=== PATIENT | female | born 1960 | race Caucasian/White ===

== ENCOUNTER 2021-01-01 07:23 | Day surgery (SDC) | payer BC ==
[2020-12-28 10:37] VITALS: BMI 35.9
--- NOTE | 2020-12-28 11:56 | RAD REPORT ---
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 FINDINGS: The lungs are clear. Interstitial pattern is not significantly different from comparison imaging. Heart size is normal and central vasculature is within normal limits. No pleural effusion o r pneumothorax seen. No acute bony finding noted. No aortic abnormality. No significant change fr om comparison study. IMPRESSION: No acute cardiopulmonary process.
[2020-12-28 12:05] LABS: Absolute Lymphocytes (CBC) 2.5 K/uL (0.7-4.9); Hematocrit 44.4 % (36.0-45.0); Lymphocytes % 38.3 % (15.3-44.8); MPV 7.9 fL (7.6-11.3); RBC Red Blood Cell Count 5.06 M/uL (3.86-4.86)
[2020-12-28 12:07] LABS: Protime INR 0.94
[2020-12-28 12:09] LABS: Potassium 4.5 mmol/L (3.5-5.1)
[2021-01-01] MEDS ORDERED: NA CHLORIDE 0.9% 500 ML ONE (07:53)
[2021-01-01] MEDS ORDERED: LIDOCAINE 1% 20 ML MDV ONE (08:46)
[2021-01-01] MEDS ORDERED: HEPA 1000U/500MLS 1,000 UNIT/500 ML BAG IV ONE (08:46)
[2021-01-01] MEDS ORDERED: MIDAZOLAM HCL 2 MG/2 ML INJ ONE ×3 (08:46→09:37)
[2021-01-01] MEDS ORDERED: FENTANYL CITR 100 MCG/2 ML ONE (08:46)
[2021-01-01] MEDS ORDERED: NA CHLORIDE 0.9% 0 ML ONE (08:47)
[2021-01-01] MEDS ORDERED: ATROPINE SULF 1 MG/10 ML SYR IV ONE (08:47)
--- NOTE | 2021-01-01 10:42 | OP ---
Date of Procedure: 01/01/2021 Surgeon: Jose A John MD Powder Nipper: Johanna Navarro Indication: The patient is a 60-year-old, patient of Dr. Tsai with new onset CHF, abnormal stres s test, brought to the laboratory sample carrier today on 01/01/2021, underwent a left heart catheterization, selectiv e coronary arteriogram, left ventriculogram. Procedure: The patient was prepped and draped in the routine sterile fashion. Given Versed and fent anyl for sedation. A 6-Divehi sheath introduced in the right common femoral artery successfully usin g the Seldinger technique and 10 cc of xylocaine. Angiography there showed some mild SFA disease. S tarClose was used to close the case. A JR4 catheter and JL4 catheters were used to cannulate the rig ht main and the left main respectively. Her RCA was very large, dominant, free of disease. Her left main was normal. LAD was normal. Circumflex was small, nondominant. Pigtail catheter was then int roduced in the left ventricle. Angiography there showed mild global hypokinesis with ejection fracti on of 40% to 45%. Left ventricular end-diastolic pressure was 15. There were no complications. Blood Loss: 5 mL. Postoperative Diagnoses: Normal coronaries. Congestive heart failure, acute systolic, mild. We lyle crouch plan for medical therapy. She is already taking a beta-zurdo and a statin. I will consider the use of Entresto and maybe a low-dose Lasix. Plan: The patient will be at bedrest for 2 hours after her procedure. She will go home and I will s ee her in the office in 2 weeks. Anesthesia: Total conscious sedation was 45 minutes. NB/MODL Voice ID: [id number] Report ID: [id number]
[2021-01-01 11:11] VITALS: TEMP 96.6
[2021-01-01 11:13] VITALS: O2SAT 96
[2021-01-01 11:15] VITALS: BP 134/73
== END 2021-01-01 11:45 | disposition home or self-care (01) ==
LOC: CCL 07:23
DX: R94.39 Abnormal result of other cardiovascular function study (principal); I11.0 Hypertensive heart disease with heart failure; I50.21 Acute systolic (congestive) heart failure; E78.2 Mixed hyperlipidemia; F17.210 Nicotine dependence, cigarettes, uncomplicated; Z20.822 Contact with and (suspected) exposure to COVID-19; Z82.49 Family history of ischemic heart disease and other diseases of the circulatory system
CPT/HCPCS: 85025; 80048; 36415; 85610; 85730; 71046; 93458; U0003; C1893; J2250 ×3; J3010; J7040; J1644; J0583

== ENCOUNTER 2021-04-02 13:36 | Inpatient (IN) | payer BC ==
--- NOTE | 2021-04-02 14:33 | RAD REPORT ---
EXAM DESCRIPTION: RAD - Chest Single View - 04/02/2021 2:14 pm CLINICAL HISTORY: COUGH COMPARISON: Chest Pa And Lat (2 Views) dated 12/28/2020; CHEST SINGLE VIEW dated 07/14/2010; CHEST PA A ND LAT 2 VIEW dated 07/10/2010; CHEST SINGLE VIEW dated 03/01/2008 FINDINGS: Lines: None. Lungs: Decreased lung volumes with hazy bilateral opacities. Pleural: No significant pleural effusions or pneumothorax. Cardiac: Cardiomegaly. Bones: No acute fractures. Other: IMPRESSION: Low lung volumes with hazy bilateral opacities that may reflect edema and/or pneumonia.
[2021-04-02 16:15] LABS: Protime INR 1.13
[2021-04-02] MEDS ORDERED: NA CHLORIDE 0.9% 500 ML ONE (16:27)
[2021-04-02] MEDS ORDERED: ONDANSETRON 4 MG/2 ML VIAL ONE (16:27)
[2021-04-02] MEDS ORDERED: FAMOTIDINE 20 MG/2 ML VIAL IV ONE (16:27)
[2021-04-02 16:28] LABS: Absolute Lymphocytes (CBC) 0.8 K/uL (0.7-4.9); Basophils % 0.1 % (0-1.3); Hematocrit 44.3 % (36.0-45.0); Lymphocytes % 16.5 % (15.3-44.8); MPV 7.5 fL (7.6-11.3); RBC Red Blood Cell Count 5.13 M/uL (3.86-4.86)
[2021-04-02 16:31] LABS: ALT/SGPT 46 U/L (12-78); AST/SGOT 47 U/L (15-37); Albumin 3.3 g/dL (3.4-5.0); Alkaline Phosphatase 54 U/L (45-117); BUN Blood Urea Nitrogen 10 mg/dL (7-18); Bicarbonate 26 mmol/L (21-32); Bilirubin Direct 0.2 mg/dL (0-0.2); Bilirubin Total 0.6 mg/dL (0.2-1.0); Glucose Level 196 mg/dL (74-106); Lipase 64 U/L (73-393); Magnesium 2.2 mg/dL (1.8-2.4); NT PRO-BNP 563 pg/mL (<125); Protein, Total 7.3 g/dL (6.4-8.2); Sodium Level 137 mmol/L (136-145); Troponin (Emerg Dept Use Only) < 0.02 ng/mL (0.0-0.045)
--- NOTE | 2021-04-02 17:08 | RAD REPORT ---
EXAM DESCRIPTION: CT - Chest For Pe Angio - 04/02/2021 4:59 pm CLINICAL HISTORY: SOB COMPARISON: CTANGIO CHEST FOR PE dated 03/01/2008 FINDINGS: Chest Wall: No suspicious thyroid nodules or pathologic lymphadenopathy. Lungs: Mild patchy bilateral airspace disease. Pleura: No significant effusions or pneumothorax. Mediastinum/gilmar: No pathologic lymphadenopathy. Pulmonary arteries/Aorta: No filling defect identified. No aortic aneurysm. Heart: No significant pericardial effusion. Normal heart size. Upper abdomen: Hepatic steatosis. Cholecystectomy. Bones: No acute abnormality. Multilevel degenerative changes are present in the spine. All CT scans are performed using dose optimization technique as appropriate and may include automated exposure control or mA/KV adjustment according to patient size. IMPRESSION: Negative for pulmonary embolism. Mild bilateral airspace disease in a pattern suggestive of Covid-19 pneumonia.
--- NOTE | 2021-04-02 17:10 | RAD REPORT ---
EXAM DESCRIPTION: CTAbdomen Pelvis W Contrast - 04/02/2021 4:59 pm CLINICAL HISTORY: . diarrhea;Abd pain COMPARISON: No comparisons TECHNIQUE: Biphasic CT imaging of the abdomen and pelvis was performed with 100 ml non-ionic IV cont rast. All CT scans are performed using dose optimization technique as appropriate and may include automated exposure control or mA/KV adjustment according to patient size. FINDINGS: Lower chest: Reference same-day CT of the chest. Liver: Hepatic steatosis. Biliary: Cholecystectomy Stomach: No significant focal abnormality. Duodenum: No significant focal abnormality. Pancreas: No significant abnormality. Spleen: No significant abnormality. Adrenal: No suspicious lesions. Kidney/ureter: No hydronephrosis. No renal calculi. Retroperitoneum: No retroperitoneal adenopathy. Vascular: No aneurysm. Bowel: No significant focal abnormality. Normal appendix. Diverticulosis without diverticulitis. Peritoneum: No ascites or free air. Bladder: Bladder wall thickening with trace gas. Reproductive: No adnexal masses. Pessary present. Bones: No acute fracture. Other: n/a IMPRESSION: No definite acute intra-abdominal abnormality. Trace bladder gas which may be secondary to infection or recent instrumentation. Reference same-day chest CT for findings within the lungs.
[2021-04-02 18:06] LABS: Urine Bacteria >50 /HPF (<20); Urine RBC <5 /HPF (NONE SEEN)
[2021-04-02] MEDS ORDERED: CASIRIVIMAB/IMDEVIMAB 10 ML VIAL ONE (18:28)
[2021-04-02] MEDS ORDERED: dexAMETHasone 10 MG/ML VIAL ONE (18:30)
[2021-04-02] MEDS ORDERED: CEFTRIAXONE/SWI 1gm 1 GM/10 ML SYR ONE (18:31)
[2021-04-02] MEDS ORDERED: NA CHLORIDE 0.9% 250 ML ONE (18:45)
--- NOTE | 2021-04-02 20:20 | ER ---
Nurse's Notes [facility] Name: Caroline Angel Age: 60 yrs Sex: Female : 1960 Arrival Date: 04/02/2021 Time: 13:38 Bed Treatment Private MD: Diagnosis: Pneumonia due to SARS-associated coronavirus;Hypoxia Presentation: 04/02 13:59 Chief complaint: Patient states: Covid symptoms that began a week ago. Pt states that jl7 she knows she has covid because her family has tested positive. C/o SOB, cough, body aches, headache and N/V. Coronavirus screen: Client presents with at least one sign or symptom that may indicate coronavirus-19. Standard/surgical mask placed on the client. Provider contacted for isolation considerations. Ebola Screen: Patient denies exposure to infectious person. Patient denies travel to an Ebola-affected area in the 21 days before illness onset. Initial Sepsis Screen: Does the patient meet any 2 criteria? No. Patient's initial sepsis screen is negative. Does the patient have a suspected source of infection? No. Patient's initial sepsis screen is negative. Risk Assessment: Do you want to hurt yourself or someone else? Patient reports no desire to harm self or others. Onset of symptoms was March 26, 2021. 13:59 Method Of Arrival: Wheelchair [facility] 13:59 Acuity: SHELDON 2 jl7 Historical: - Allergies: 14:01 No Known Allergies; jl7 - Immunization history:: Client reports having NOT received the Covid vaccine. - Social history:: Smoking status: Patient denies any tobacco usage or history of. Screenin:24 Abuse screen: Denies threats or abuse. Nutritional screening: No deficits noted. oh Tuberculosis screening: No symptoms or risk factors identified. Fall Risk None identified. Assessment: 15:22 General: Appears distressed, uncomfortable, Behavior is calm, cooperative, Reports oh fever for feeling ill for fatigue for SOB, cough. Pain: Complains of pain in to chest upon coughing. Neuro: No deficits noted. Cardiovascular: No deficits noted. Respiratory: Reports shortness of breath cough that is pain with cough Pain is 7 out of 10 on a pain scale. GI: No deficits noted. : No deficits noted. EENT: No deficits noted. Derm: No deficits noted. Musculoskeletal: No deficits noted. 19:30 Reassessment: Patient states symptoms have not improved. Pt request to go to bathroom. dc2 Pt RR 24-26 while on 6 L of Oxygen. Informed pt I could get BSC. After using BSC pt co SOB and tachypnic. States has been sob all week since symptoms began for the past week. Pt reports normally no SOB prior to this event of being sick. at side, Regeneron infusing to R AC without difficulty. VSS except for RR and co sob that is not improving. Call light within reach, will continue to monitor. . 20:17 Reassessment: Regeneron completed and pt tolerate well. IV disconnected and line dc2 flushed. While speaking to patient , pt oxygen saturations drop low 90's on 3L NC and RR 28. will make provider aware of findings. When oxygen turned off, pt desat into mid 80's. Vital Signs: 13:59 BP 132 / 79; Pulse 106; Resp 25; Temp 99.8(O); Pulse Ox 92% on R/A; Weight 87.09 kg; jl7 Height 5 ft. 4 in. (162.56 cm); Pain 4/10; 18:50 BP 121 / 64; Pulse 90; Resp 20; Temp 100.4; Pulse Ox 95% on 3 lpm NC; oh 19:30 BP 133 / 76; Pulse 85; Resp 26; Temp 98.3; Pulse Ox 97% on 6 lpm NC; dc2 20:52 BP 130 / 90; Pulse 87; Resp 26; Pulse Ox 95% on 2 lpm NC; dc2 22:17 BP 126 / 66; Pulse 88; Resp 22; Temp 98.3; Pulse Ox 93% on 3 lpm NC; Pain 6/10; dc2 13:59 Body Mass Index 32.96 (87.09 kg, 162.56 cm) jl7 Jerilyn Coma Score: 19:30 Eye Response: spontaneous(4). Verbal Response: oriented(5). Motor Response: obeys dc2 commands(6). Total: 15. ED Course: 13:38 Patient arrived in ED. rg4 14:01 Triage completed. jl7 14:01 Arm band placed on right wrist. jl7 14:13 XRAY Chest (1 view) In Process Unspecified. EDMS 15:12 Jaya Leyva PA is PHCP. cp 15:12 Lion Segura MD is Attending Physician. cp 15:22 Kvng Gottlieb, DAMIEN is Primary Nurse. oh 15:25 Placed in gown. Bed in low position. Call light in reach. Side rails up X 1. Adult w/ oh patient. 15:59 Basic Metabolic Panel Sent. oh 15:59 CBC with Diff Sent. oh 16:59 CT Chest For PE Angio In Process Unspecified. EDMS 16:59 CT Abd/Pelvis - IV Contrast Only In Process Unspecified. EDMS 18:35 Primary Nurse role handed off by Kvng Gottlieb, RN bd 18:40 Kvng Gottlieb, DAMIEN is Primary Nurse. oh 18:40 Inserted saline lock: 18 gauge in right antecubital area, using aseptic technique. oh Blood collected. 18:40 No provider procedures requiring assistance completed. oh 19:20 Droplet isolation initiated. dc2 19:20 nuclear monitoring technician on. Pulse ox on. NIBP on. dc2 20:19 Jesus Navarro PA is Hospitalizing Provider. pm1 20:20 PHCP role handed off by Jaya Leyva PA pm1 20:20 Sage Trimble NP is PHCP. pm1 20:30 Patient Discuss admission process with patient and . Verbalize understanding. dc2 Will wait for hospitalist then will find out if she will be a hold in the ED. IF a hold, instructed patient would attempt to get hospital bed for comfort. Voices understanding. 20:53 Awaiting bed assignment. Safety Checks:. dc2 20:54 Door closed. Lights dimmed. Assisted to bedside commode. dc2 22:20 IV Flushed Converted IV to saline lock on right antecubital area dc2 Administered Medications: 16:09 Drug: Pepcid (famotidine) 20 mg Route: IVP; Site: right antecubital; oh 16:09 Drug: NS 0.9% 500 ml Route: IV; Rate: 500 ml/hr; Site: right antecubital; oh 16:10 Drug: Zofran (Ondansetron) 4 mg Route: IVP; Site: right antecubital; oh 18:10 Drug: Rocephin (cefTRIAXone) 1 grams Route: IV; Rate: calculated rate; Site: right oh antecubital; 18:18 Drug: Decadron - Dexamethasone 6 mg Route: IVP; Site: right antecubital; oh 18:25 Drug: REGEN-COV Dose Pack 120 mg/mL-120 mg/mL (EUA) 260 ml Route: IV; Rate: calculated oh rate; Site: right antecubital; Outcome: 20:20 Decision to Hospitalize by Provider. pm1 22:20 Admitted to Med/surg accompanied by nurse, room 402, with oxygen, with chart, Report dc2 called to DAMIEN Pearl 22:20 Condition: stable 23:11 Patient left the ED. dc2 Signatures: Dispatcher [employer] EDMS Barbara Aguilera Corey, PA PA cp Marinas, Patrick, JOYCE COMPUTER SYSTEM VALIDATION SPECIALIST pm1 Eda Clifford4 Shruti Deleon RN RN jl7 Ebony Cantu RN RN dc2 Kvng Gottlieb RN RN oh
--- NOTE | 2021-04-02 20:20 | EDPHYS ---
Physician Documentation [facility] Name: Caroline Angel Age: 60 yrs Sex: Female : 1960 Arrival Date: 04/02/2021 Time: 13:38 Bed Treatment Private MD: ED Physician Lion Segura HPI: 04/02 15:20 This 60 yrs old Female presents to ER via Wheelchair with complaints of cp Cough, Fever, Diarrhea. 15:20 The patient or guardian reports cough, that is intermittent, with no sputum, shortness cp of breath. 15:20 Onset: The symptoms/episode began/occurred 7 day(s) ago. Associated signs and symptoms: cp Pertinent positives: diarrhea, nausea, vomiting, abdominal pain. Patient reports close contact with multiple family members who tested positive for COVID-19. Patient reports she is not vaccinated against COVID-19. Historical: - Allergies: 14:01 No Known Allergies; jl7 - Immunization history:: Client reports having NOT received the Covid vaccine. - Social history:: Smoking status: Patient denies any tobacco usage or history of. ROS: 15:25 Constitutional: Positive for body aches, poor PO intake, Negative for fever. cp 15:25 Eyes: Negative for injury, pain, redness, and discharge. cp 15:25 Cardiovascular: Negative for chest pain, edema. 15:25 Respiratory: Positive for cough, with no reported sputum. 15:25 Abdomen/GI: Positive for abdominal pain, nausea, vomiting, and diarrhea, anorexia, Negative for hematemesis, black/tarry stool, rectal bleeding. 15:25 Neuro: Positive for headache, Negative for altered mental status, loss of consciousness, syncope. Exam: 15:30 Head/Face: Normocephalic, atraumatic. cp 15:30 Constitutional: The patient appears in no acute distress, alert, awake, non-diaphoretic, non-toxic, well developed, well nourished. 15:30 Eyes: Periorbital structures: appear normal, Conjunctiva: normal, no exudate, no injection, Sclera: no appreciated abnormality, Lids and lashes: appear normal, bilaterally. 15:30 ENT: External ear(s): are unremarkable, Nose: is normal, Mouth: Lips: moist, Oral mucosa: moist, Posterior pharynx: Airway: no evidence of obstruction, patent. 15:30 Chest/axilla: Inspection: normal, Palpation: is normal, no crepitus, no tenderness. 15:30 Cardiovascular: Rate: tachycardic, Rhythm: regular, Edema: is not appreciated, JVD: is not appreciated. 15:30 Respiratory: the patient does not display signs of respiratory distress, Respirations: normal, no use of accessory muscles, no retractions, labored breathing, is not present, Breath sounds: bronchial sounds, that are mild, are heard in the left posterior lower lobe and right posterior lower lobe, decreased breath sounds, are not appreciated, stridor, is not appreciated. 15:30 Abdomen/GI: Inspection: abdomen appears normal, Bowel sounds: active, all quadrants, Palpation: soft, in all quadrants, mild abdominal tenderness, in all quadrants, rebound tenderness, is not appreciated, involuntary guarding, is not appreciated. 15:30 Back: CVA tenderness, is absent. 15:30 Skin: cellulitis, is not appreciated, no rash present. 15:30 Neuro: Orientation: to person, place \T\ time. Mentation: is normal. 16:27 ECG was reviewed by the Attending Physician. cp Vital Signs: 13:59 BP 132 / 79; Pulse 106; Resp 25; Temp 99.8(O); Pulse Ox 92% on R/A; Weight 87.09 kg; jl7 Height 5 ft. 4 in. (162.56 cm); Pain 4/10; 18:50 BP 121 / 64; Pulse 90; Resp 20; Temp 100.4; Pulse Ox 95% on 3 lpm NC; oh 19:30 BP 133 / 76; Pulse 85; Resp 26; Temp 98.3; Pulse Ox 97% on 6 lpm NC; dc2 20:52 BP 130 / 90; Pulse 87; Resp 26; Pulse Ox 95% on 2 lpm NC; dc2 22:17 BP 126 / 66; Pulse 88; Resp 22; Temp 98.3; Pulse Ox 93% on 3 lpm NC; Pain 6/10; dc2 13:59 Body Mass Index 32.96 (87.09 kg, 162.56 cm) jl7 Jerilyn Coma Score: 19:30 Eye Response: spontaneous(4). Verbal Response: oriented(5). Motor Response: obeys dc2 commands(6). Total: 15. MDM: 15:17 Patient medically screened. cp 16:00 Differential Diagnosis: Viral Syndrome Pneumonia Other respiratory failure, cp dehydration, electrolyte abnormality. 17:20 Data reviewed: vital signs, nurses notes, lab test result(s), EKG, radiologic studies, cp CT scan, plain films. 17:20 Test interpretation: by ED physician or midlevel provider: ECG, plain radiologic cp studies. 20:17 ED course: Patient with completion of Regeneron. However patient with saturations 87% pm1 on room air and tachypnea. Will admit the patient due to supplemental oxygen requirement. 20:17 Counseling: I had a detailed discussion with the patient and/or guardian regarding: the pm1 historical points, exam findings, and any diagnostic results supporting the discharge/admit diagnosis, lab results, radiology results, the need for further work-up and treatment in the hospital. 20:42 Physician consultation: Jesus SHI was contacted at 20:40, regarding admission, pm1 and will see patient in ED. 04/02 15:36 Order name: Basic Metabolic Panel cp 04/02 15:36 Order name: CBC with Diff cp 04/02 15:36 Order name: LFT's; Complete Time: 16:41 cp 04/02 16:41 Interpretation: Normal except: AST 47; ALB 3.3; GLOB 4.0; A/G 0.8. cp 04/02 15:36 Order name: Magnesium; Complete Time: 16:41 cp 04/02 15:36 Order name: NT PRO-BNP; Complete Time: 16:41 cp 04/02 15:36 Order name: PT-INR; Complete Time: 16:24 cp 04/02 16:58 Interpretation: Abnormal: PT 13.0. cp 04/02 15:36 Order name: Troponin (emerg Dept Use Only); Complete Time: 16:41 cp 04/02 15:36 Order name: Lipase; Complete Time: 16:41 cp 04/02 16:58 Interpretation: Abnormal: LIP 64. cp 04/02 15:36 Order name: CRP; Complete Time: 16:41 cp 04/02 16:41 Interpretation: Abnormal: C-REACTIVE PROT 66.50. cp 04/02 15:36 Order name: Ferritin; Complete Time: 16:41 cp 04/02 16:42 Interpretation: Abnormal: EITAN 398.0. cp 04/02 15:36 Order name: Urine Microscopic Only; Complete Time: 20:15 04/02 15:36 Order name: Basic Metabolic Panel; Complete Time: 16:41 [facility] 04/02 16:42 Interpretation: Normal except: GLUC 196; GFR 68; CA 8.4. 04/02 15:36 Order name: CBC with Automated Diff; Complete Time: 16:41 [facility] 04/02 16:42 Interpretation: Normal except: RBC 5.13; MPV 7.5; JJ% 77.2. 04/02 14:02 Order name: XRAY Chest (1 view); Complete Time: 15:17 [facility] 04/02 15:36 Order name: EKG; Complete Time: 15:36 04/02 15:36 Order name: Cardiac monitoring; Complete Time: 15:59 04/02 15:36 Order name: EKG - Nurse/Tech; Complete Time: 16:24 04/02 15:36 Order name: IV Saline Lock; Complete Time: 15:59 04/02 15:36 Order name: CT Chest For PE Angio; Complete Time: 17:13 04/02 15:36 Order name: CT Abd/Pelvis - IV Contrast Only; Complete Time: 17:13 04/02 15:51 Order name: SARS-COV-2 RT PCR; Complete Time: 16:24 [facility] 04/02 16:24 Interpretation: Abnormal: SARSCOV2 RT PCR POSITIVE. 04/02 18:07 Order name: Urine Culture [facility] 04/02 21:04 Order name: CONS Physician Consult; Complete Time: 22:05 [facility] 04/02 15:36 Order name: Labs collected and sent; Complete Time: 15:59 04/02 15:36 Order name: O2 Per Protocol; Complete Time: 15:59 04/02 15:36 Order name: O2 Sat Monitoring; Complete Time: 15:59 04/02 15:36 Order name: Urine Dipstick-Ancillary (obtain specimen) cp EC:27 Rate is 93 beats/min. Rhythm is regular. ND interval is normal. QRS interval is normal. cp QT interval is normal. T waves are Inverted in lead III. Interpreted by me. Reviewed by me. Administered Medications: 16:09 Drug: Pepcid (famotidine) 20 mg Route: IVP; Site: right antecubital; oh 16:09 Drug: NS 0.9% 500 ml Route: IV; Rate: 500 ml/hr; Site: right antecubital; oh 16:10 Drug: Zofran (Ondansetron) 4 mg Route: IVP; Site: right antecubital; oh 18:10 Drug: Rocephin (cefTRIAXone) 1 grams Route: IV; Rate: calculated rate; Site: right oh antecubital; 18:18 Drug: Decadron - Dexamethasone 6 mg Route: IVP; Site: right antecubital; oh 18:25 Drug: REGEN-COV Dose Pack 120 mg/mL-120 mg/mL (EUA) 260 ml Route: IV; Rate: calculated oh rate; Site: right antecubital; Disposition: 04/03 07:18 Co-signature as Attending Physician, Lion Segura MD I agree with the assessment and rn plan of care. Attestation: The patient's history, exam findings, diagnostics, and a summary of any interventions or procedures was reviewed in detail with Sage Trimble NP. Disposition Summary: 04/02/21 20:20 Hospitalization Ordered Hospitalization Status: Inpatient Admission pm1 Provider: Jesus Navarro pm1 Location: Telemetry/[facility] (Inpatient) pm1 Condition: Stable pm1 Problem: new pm1 Symptoms: have improved pm1 Bed/Room Type: Standard pm1 Room Assignment: 402(04/02/21 21:37) Diagnosis - Pneumonia due to SARS-associated coronavirus pm1 - Hypoxia pm1 Discharge Instructions: - Discharge Summary Sheet cp - Food Choices to Help Relieve Diarrhea, Adult cp - Diarrhea, Adult cp - COVID-19 cp - COVID-19 Frequently Asked Questions cp - 10 Things You Can Do to Manage Your COVID-19 Symptoms at Home - [facility] cp Forms: - Medication Reconciliation Form pm1 - SBAR form pm1 Prescriptions: - dexamethasone 2 mg Oral tablet - take 1 tablet by ORAL route 3 times per day for 5 days; 15 tablet; Refills: 0, cp Product Selection Permitted - Zofran 4 mg Oral Tablet - take 1 tablet by ORAL route every 12 hours As needed; 20 tablet; Refills: 0, cp Product Selection Permitted - Zithromax Z-Angel 250 mg Oral Tablet - take 1 tablet by ORAL route as directed for 5 days Day 1 - take two (2) tablets cp one time. Day 2, 3, 4 , 5 take one (1) tablet once daily.; 6 tablet; Refills: 0, Product Selection Permitted - Augmentin 875-125 mg Oral Tablet - take 1 tablet by ORAL route every 12 hours for 7 days; 14 tablet; Refills: 0, cp Product Selection Permitted Signatures: Dispatcher [employer] EDMD Lion Segura MD MD rn Page, Corey, PA PA cp Garcia, Cindy, RN RN Sage Vera, JOYCE HIDE SPREADER pm1 Shruti Deleon RN RN jl7 Kvng Gottlieb RN RN oh Corrections: (The following items were deleted from the chart) 04/02 14:21 14:03 CORONAVIRUS+.ALEJO ordered. EDMD EDMS :04/01 15:30 Constitutional: The patient appears in no acute distress, alert, awake, cp non-diaphoretic, non-toxic, well developed, well nourished, cp 04/02 18:04/01 15:30 Head/Face: Normocephalic, atraumatic. cp cp 04/02 18:04/01 15:30 Eyes: Periorbital structures: appear normal, Conjunctiva: normal, no cp exudate, no injection, Sclera: no appreciated abnormality, Lids and lashes: appear normal, bilaterally, cp 04/02 18: 09 15:30 ENT: External ear(s): are unremarkable, Nose: is normal, Mouth: Lips: cp moist, Oral mucosa: moist, Posterior pharynx: Airway: no evidence of obstruction, patent, cp 04/02 18:04/01 15:30 Chest/axilla: Inspection: normal, Palpation: is normal, no crepitus, no cp tenderness, cp 04/02 18:04/01 15:30 Cardiovascular: Rate: tachycardic, Rhythm: regular, Edema: is not cp appreciated, JVD: is not appreciated, cp 04/02 18:04/01 15:30 Respiratory: the patient does not display signs of respiratory distress, cp Respirations: normal, no use of accessory muscles, no retractions, labored breathing, is not present, Breath sounds: bronchial sounds, that are mild, are heard in the left posterior lower lobe and right posterior lower lobe, decreased breath sounds, are not appreciated, stridor, is not appreciated, cp 04/02 18:04/01 15:30 Abdomen/GI: Inspection: abdomen appears normal, Bowel sounds: active, all cp quadrants, Palpation: soft, in all quadrants, mild abdominal tenderness, in all quadrants, rebound tenderness, is not appreciated, involuntary guarding, is not appreciated, cp 04/02 18:04/01 15:30 Back: CVA tenderness, is absent, cp 04/02 18:04/01 15:30 Neuro: Orientation: to person, place \T\ time. Mentation: is normal, cp 04/02 18:04/01 15:30 Skin: cellulitis, is not appreciated, no rash present. [facility] 04/02 21:37 20:20 pm1 cg
--- NOTE | 2021-04-02 21:58 | P.HP ---
Certification for Inpatient Patient admitted to: Inpatient With expected LOS: <2 Midnights Patient will require the following post-hospital care: None Practitioner: I am a practitioner with admitting privileges, knowledge of patient current condition, hospital course, and medical plan of care. Services: Services provided to patient in accordance with Admission requirements found in Title 42 Section 412.3 of the Code of Federal Regulations Patient History Date of Service: 04/02/21 Reason for admission: covid pneumonia History of Present Illness: Ms. Angel is a 60 yo F with CHF (EF 41%), HTN, HLD who presents with SOB and fever, COVID+ diagnosis. She says family members whom she lives with have tested positive for COVID. She is not vaccinated. On Friday she began to have fever, headache, malaise, cough, SOB, N/V/D, abdominal pain. Reports poor appetite, and fluid intake. CXR and CT scan consistent with covid pneumonia, no pulmonary embolism. Initially sats of 92% on RA so plan was to discharge from the ED after receiving Regeneron. However, patient became hypoxic to 88% and required O2 via nasal cannula, now requiring admission. Glu 196. Ferritin 398. CRP 66. Urine dipstick + for bacteria. Allergies No Known Allergies Allergy (Verified 12/28/20 10:37) - Past Medical/Surgical History Diabetic: No -: HTN -: HLD -: CHF -: lichen sclerosis -: rectocele -: hysterectomy -: cholecystectomy -: foot surgery x 5, achilles tendon repair Psychosocial/ Personal History: - Family History Mother -: Heart disease, Cancer Notes: from covid Father -: Lung disease - Social History Smoking Status: Never smoker Alcohol use: No CD- Drugs: No Caffeine use: Yes Place of Residence: Home Review of Systems General: Fever, Chills, Sweats, Weakness, Malaise Respiratory: Cough, Shortness of Breath, SOB with Excertion Gastrointestinal: Nausea, Vomiting, Abdominal Pain, Diarrhea Physical Examination - Physical Exam General: Alert, In no apparent distress, Oriented x3, Cooperative, Obese HEENT: Atraumatic, PERRLA, Mucous membr. moist/pink, EOMI, Sclerae nonicteric Neck: Supple, 2+ carotid pulse no bruit, No LAD, Without JVD or thyroid abnormality Respiratory: Normal air movement, Expiratory wheezes, Rhonchi/gurgles Cardiovascular: No edema, Normal pulses, Regular rate/rhythm, Normal S1 S2, No gallops, No rubs, No murmurs Gastrointestinal: Normal bowel sounds, Soft and benign, Non-distended, No ascites, No tenderness, No masses, No rebound, No guarding Musculoskeletal: No tenderness Integumentary: No rashes Neurological: Normal speech, Normal strength at 5/5 x4 extr, Normal tone, Normal affect Lymphatics: No axilla or inguinal lymphadenopathy - Studies Laboratory Data (last 24 hrs) 04/02/21 15:56: PT 13.0 H, INR 1.13 04/02/21 15:56: WBC 4.80, Hgb 14.8, Hct 44.3, Plt Count 251 04/02/21 15:56: Sodium 137, Potassium 4.0, BUN 10, Creatinine 0.85, Glucose 196 H, Magnesium 2.2, Total Bilirubin 0.6, AST 47 H, ALT 46, Alkaline Phosphatase 54, Lipase 64 L Assessment and Plan - Problems (Diagnosis) (1) Pneumonia due to COVID-19 virus Current Visit: Yes Status: Acute (2) HTN (hypertension) Current Visit: Yes Status: Chronic Qualifiers: Hypertension type: primary hypertension Qualified Code(s): I10 - Essential (primary) hypertension (3) HLD (hyperlipidemia) Current Visit: Yes Status: Chronic Qualifiers: Hyperlipidemia type: unspecified Qualified Code(s): E78.5 - Hyperlipidemia, unspecified (4) CHF (congestive heart failure) Current Visit: Yes Status: Acute Qualifiers: Heart failure type: unspecified Heart failure chronicity: chronic Qualified Code(s): I50.9 - Heart failure, unspecified (5) Bacteriuria Current Visit: Yes Status: Acute - Plan pulm consulted, RT consulted continue IV steroids, ivermectin, covid supplements sats for home O2, sats on room air daily daily crp, ferritin, procal A1c pending, sliding scale insulin and accuchecks urinalysis pending, continue IV antibiotics reconcile and continue home medications DVT ppx Discharge Plan: Home Plan to discharge in: 48 Hours - Advance Directives Does patient have a Living Will: No Does patient have a Durable POA for Healthcare: No - Code Status/Comfort Care Code Status Assessed: Yes (full code ) Critical Care: No Time Spent Managing Pts Care (In Minutes): 70
[2021-04-02] MEDS: BENZONATATE 100 MG CAP PO PRN (23:33)
[2021-04-02] MEDS: MELATONIN 5 MG TABLET PO PRN (23:33)
[2021-04-03 04:00] LABS: Absolute Lymphocytes (CBC) 1.1 K/uL (0.7-4.9); Basophils % 0.1 % (0-1.3); Hematocrit 40.8 % (36.0-45.0); Lymphocytes % 15.1 % (15.3-44.8); MPV 7.6 fL (7.6-11.3); RBC Red Blood Cell Count 4.74 M/uL (3.86-4.86)
[2021-04-03 04:20] LABS: ALT/SGPT 39 U/L (12-78); AST/SGOT 33 U/L (15-37); Albumin 2.9 g/dL (3.4-5.0); Alkaline Phosphatase 45 U/L (45-117); BUN Blood Urea Nitrogen 10 mg/dL (7-18); Bicarbonate 27 mmol/L (21-32); Bilirubin Total 0.5 mg/dL (0.2-1.0); Ferritin 366.6 ng/mL (8-388); Glucose Level 159 mg/dL (74-106); Magnesium 2.1 mg/dL (1.8-2.4); Phosphorus 3.2 mg/dL (2.5-4.9); Potassium 3.7 mmol/L (3.5-5.1); Protein, Total 6.5 g/dL (6.4-8.2); Sodium Level 140 mmol/L (136-145)
[2021-04-03] MEDS: INSULIN -REGULAR HUMAN 50 UNIT/0.5 ML ML SQ SCH ×4 (07:30→21:00)
[2021-04-03] MEDS: ASPIRIN EC 81 MG TAB PO SCH (08:50)
[2021-04-03] MEDS: VITAMIN D 1000 UNIT TAB PO SCH (08:50)
[2021-04-03] MEDS: FAMOTIDINE 20 MG TAB PO SCH ×2 (08:51→20:51)
[2021-04-03] MEDS: METHYLPREDNISOLONE 40 MG INJ IV SCH ×2 (08:51→20:51)
[2021-04-03] MEDS: ZINC SULFATE 220 MG CAP PO SCH (08:51)
[2021-04-03] MEDS: THIAMINE HCL 100 MG TABLET PO SCH (08:51)
[2021-04-03] MEDS: ASCORBIC ACID 500 MG TABLET PO SCH ×4 (08:51→20:51)
[2021-04-03] MEDS ORDERED: IVERMECTIN 3 MG TABLET PO SCH (09:00)
--- NOTE | 2021-04-03 10:25 | EKG ---
Test Date: 2021-04-02 Test Time: 16:20:48 Cso: JACKIE MEASUREMENT RESULTS: Intervals: Rate: 93 WY: 138 QRSD: 90 QT: 358 QTc: 445 [place]: P: 42 WY: 138 QRS: -16 T: 10 INTERPRETIVE STATEMENTS: Normal sinus rhythm Possible Anterior infarct, age undetermined Abnormal ECG Compared to ECG 01/25/2015 17:38:57 Myocardial infarct finding now present Sinus tachycardia no longer present Electronically Signed On 04-03-21 10:22:05 CDT by Jose A John
--- NOTE | 2021-04-03 16:52 | P.PN ---
Subjective Date of Service: 04/03/21 Chief Complaint: covid pneumonia Patient is now requiring 6 L oxygen by nasal cannula. She is complaining of fatigue. Physical Examination - Vital Signs Temperature: 97.8 F Blood Pressure: 128/66 Pulse: 72 Respirations: 18 Pulse Ox (%): 92 - Physical Exam General: Alert, In no apparent distress, Oriented x3 HEENT: Mucous membr. moist/pink Neck: JVD not distended Respiratory: Other (Non labored breathing) Cardiovascular: Regular rate/rhythm, Normal S1 S2 Gastrointestinal: Soft and benign, Non-distended Musculoskeletal: No swelling, No tenderness Integumentary: No rashes, No erythema Neurological: Normal speech, Normal strength at 5/5 x4 extr Assessment And Plan - Current Problems (Diagnosis) (1) CHF (congestive heart failure) Current Visit: Yes Status: Acute Qualifiers: Heart failure type: unspecified Heart failure chronicity: chronic Qualified Code(s): I50.9 - Heart failure, unspecified (2) Pneumonia due to COVID-19 virus Current Visit: Yes Status: Acute (3) HTN (hypertension) Current Visit: Yes Status: Chronic Qualifiers: Hypertension type: primary hypertension Qualified Code(s): I10 - Essential (primary) hypertension (4) UTI (urinary tract infection) Current Visit: Yes Status: Acute - Plan Continue steroid, vitamin supplementation and zinc supplementation. Monitor inflammatory markers. Pharmacy to evaluate for Remdesivir therapy. Urine culture growing Gram negative rods. Continue IV antibiotics and follow culture. Titrate oxygen. Watch for steroid induced hyperglycemia.
[2021-04-03] MEDS: CEFTRIAXONE/SWI 1gm 1 GM/10 ML SYR IVP SCH (17:27)
[2021-04-03] MEDS: RIVAROXABAN 20 MG TABLET PO SCH (17:28)
[2021-04-03] MEDS ORDERED: REMDESIVIR (EUA) 200 MG in NA CHLORIDE 0.9% 250 ML IV ONE (18:00)
[2021-04-03] MEDS: BENZONATATE 100 MG CAP PO PRN (20:51)
[2021-04-03] MEDS ORDERED: CEFTRIAXONE 1 GM/NS 50 ML 1 GM/50 ML BAG IV SCH (21:00)
[2021-04-04 03:58] LABS: Basophils % 0.1 % (0-1.3); Hematocrit 40.6 % (36.0-45.0); Lymphocytes % 19.4 % (15.3-44.8); MPV 7.8 fL (7.6-11.3); RBC Red Blood Cell Count 4.73 M/uL (3.86-4.86)
[2021-04-04 04:15] LABS: ALT/SGPT 30 U/L (12-78); AST/SGOT 28 U/L (15-37); Albumin 2.7 g/dL (3.4-5.0); Alkaline Phosphatase 38 U/L (45-117); BUN Blood Urea Nitrogen 13 mg/dL (7-18); Bicarbonate 29 mmol/L (21-32); Bilirubin Direct 0.1 mg/dL (0-0.2); Bilirubin Total 0.4 mg/dL (0.2-1.0); Glucose Level 162 mg/dL (74-106); Potassium 3.6 mmol/L (3.5-5.1); Protein, Total 6.4 g/dL (6.4-8.2); Sodium Level 142 mmol/L (136-145)
[2021-04-04] MEDS: INSULIN -REGULAR HUMAN 50 UNIT/0.5 ML ML SQ SCH ×4 (07:30→21:00)
[2021-04-04] MEDS: ASPIRIN EC 81 MG TAB PO SCH (09:48)
[2021-04-04] MEDS: FAMOTIDINE 20 MG TAB PO SCH ×2 (09:48→21:15)
[2021-04-04] MEDS: THIAMINE HCL 100 MG TABLET PO SCH (09:48)
[2021-04-04] MEDS: VITAMIN D 1000 UNIT TAB PO SCH (09:48)
[2021-04-04] MEDS: ASCORBIC ACID 500 MG TABLET PO SCH ×4 (09:49→21:15)
[2021-04-04] MEDS: ZINC SULFATE 220 MG CAP PO SCH (09:49)
[2021-04-04] MEDS: METHYLPREDNISOLONE 40 MG INJ IV SCH ×2 (09:49→21:15)
[2021-04-04] MEDS: REMDESIVIR (EUA) 100 MG in NA CHLORIDE 0.9% 250 ML IV SCH (09:49)
--- NOTE | 2021-04-04 15:33 | P.PN ---
Subjective Date of Service: 04/04/21 Chief Complaint: covid pneumonia Patient is now requiring 100% non-rebreather. She is complaining of cough. She is refusing fingerstick glucose monitoring. Physical Examination - Vital Signs Temperature: 97.4 F Blood Pressure: 139/72 Pulse: 83 Respirations: 36 Pulse Ox (%): 92 - Physical Exam General: Alert, In no apparent distress, Oriented x3 HEENT: Other Neck: JVD not distended Respiratory: Other (Nonlabored breathing) Cardiovascular: Regular rate/rhythm, Normal S1 S2 Gastrointestinal: Soft and benign, Non-distended Musculoskeletal: No swelling Neurological: Normal strength at 5/5 x4 extr - Studies Microbiology Data (last 24 hrs): 04/02/21 17:05 Clean Catch Urine Randolph Count - Final >100,000 CFU/ML. 04/02/21 17:05 Clean Catch Urine - Final Klebsiella Pneumoniae Gram Neg Jayce Assessment And Plan - Current Problems (Diagnosis) (1) CHF (congestive heart failure) Current Visit: Yes Status: Acute Qualifiers: Heart failure type: unspecified Heart failure chronicity: chronic Elliot lified Code(s): I50.9 - Heart failure, unspecified (2) Pneumonia due to COVID-19 virus Current Visit: Yes Status: Acute (3) HTN (hypertension) Current Visit: Yes Status: Chronic Qualifiers: Hypertension type: primary hypertension Qualified Code(s): I10 - Essential (primary) hypertension (4) UTI (urinary tract infection) Current Visit: Yes Status: Acute - Plan Continue steroid, vitamin supplementation and zinc supplementation. Patient started on Remdesivir Monitor inflammatory markers. Urine culture growing Klebsiella. Continue IV Rocephin. Patient to complete 5 days of treatment. Titrate oxygen. Patient refusing fingerstick glucose monitoring. Pulmonary-Dr. Taylor to see patient.
[2021-04-04] MEDS: RIVAROXABAN 20 MG TABLET PO SCH (17:12)
[2021-04-04] MEDS: GUAIFENESIN/DM 5 ML UCUP PO PRN (17:12)
[2021-04-04] MEDS: CEFTRIAXONE/SWI 1gm 1 GM/10 ML SYR IVP SCH (17:18)
[2021-04-04] MEDS ORDERED: NA CHLORIDE 0.9% 250 ML IV ONE (17:24)
[2021-04-04] MEDS ORDERED: ACETAMINOPHEN 325 MG TABLET PO ONE (17:24)
[2021-04-04] MEDS ORDERED: DIPHENHYDRAMINE 50 MG/ML VIAL IV ONE (17:24)
[2021-04-04] MEDS: MELATONIN 5 MG TABLET PO PRN (21:15)
[2021-04-04] MEDS: BENZONATATE 100 MG CAP PO PRN (21:15)
[2021-04-05 04:43] LABS: Albumin 2.7 g/dL (3.4-5.0); Bilirubin Direct 0.2 mg/dL (0-0.2); Bilirubin Total 0.5 mg/dL (0.2-1.0); Protein, Total 6.3 g/dL (6.4-8.2)
[2021-04-05] MEDS: INSULIN -REGULAR HUMAN 50 UNIT/0.5 ML ML SQ SCH ×5 (07:30→21:00)
[2021-04-05 10:27] LABS: Ferritin 715.3 ng/mL (8-388)
[2021-04-05] MEDS: REMDESIVIR (EUA) 100 MG in NA CHLORIDE 0.9% 250 ML IV SCH (10:54)
[2021-04-05] MEDS: METHYLPREDNISOLONE 40 MG INJ IV SCH ×2 (10:54→21:08)
[2021-04-05] MEDS: ASCORBIC ACID 500 MG TABLET PO SCH ×5 (10:56→21:00)
[2021-04-05] MEDS: VITAMIN D 1000 UNIT TAB PO SCH (10:56)
[2021-04-05] MEDS: ZINC SULFATE 220 MG CAP PO SCH (10:56)
[2021-04-05] MEDS: THIAMINE HCL 100 MG TABLET PO SCH (10:57)
[2021-04-05] MEDS: ASPIRIN EC 81 MG TAB PO SCH (10:57)
[2021-04-05] MEDS: FAMOTIDINE 20 MG TAB PO SCH ×2 (10:57→21:00)
--- NOTE | 2021-04-05 11:47 | P.CNS ---
Date of Consult: 04/05/21 Reason for Consult: COVID penumonia Chief Complaint: covid pneumonia History of Present Illness: Age 60 AW COVID penumonia and hypoxemia Pt is hypoxic and c/o cough Allergies No Known Allergies Allergy (Verified 12/28/20 10:37) - Past Medical/Surgical History Diabetic: No -: HTN -: HLD -: CHF -: lichen sclerosis -: rectocele -: hysterectomy -: cholecystectomy -: foot surgery x 5, achilles tendon repair Psychosocial/ Personal History: - Family History Mother Medical History: Heart disease, Cancer Notes: from covid Father Medical History: Lung disease - Social History Alcohol use: No CD- Drugs: No Caffeine use: Yes Place of Residence: Home Review of Systems General: Weakness Respiratory: Shortness of Breath Physical Examination Temp Pulse Resp BP Pulse Ox 97.7 F 94 H 36 H 146/76 H 89 L 04/05/21 08:00 04/05/21 08:00 04/05/21 08:00 04/05/21 08:00 04/05/21 08:00 General: Alert, Oriented x3, Cooperative - Problems (1) Pneumonia due to COVID-19 virus Current Visit: Yes Status: Acute Plan: pt is 60 AW COVID penumonia/ Start on Barcitnib cond worse now onHF O2
[2021-04-05] MEDS: BARICITINIB 2 MG TABLET PO SCH (13:22)
--- NOTE | 2021-04-05 16:57 | P.PN ---
Subjective Date of Service: 04/05/21 Chief Complaint: covid pneumonia Patient is getting worse and now requiring CPAP She is refusing fingerstick glucose monitoring. Physical Examination - Vital Signs Temperature: 98.1 F Blood Pressure: 139/79 Pulse: 89 Respirations: 36 Pulse Ox (%): 94 - Physical Exam General: Alert, Moderate distress Neck: JVD not distended Respiratory: Other (Moderately labored breathing) Cardiovascular: No edema, Regular rate/rhythm, Normal S1 S2 Gastrointestinal: Soft and benign, Non-distended Musculoskeletal: No swelling Integumentary: No rashes Neurological: Other (No focal motor deficit) Assessment And Plan - Current Problems (Diagnosis) (1) CHF (congestive heart failure) Current Visit: Yes Status: Acute Qualifiers: Heart failure type: unspecified Heart failure chronicity: chronic Qualified Code(s): I50.9 - Heart failure, unspecified (2) Pneumonia due to COVID-19 virus Current Visit: Yes Status: Acute (3) HTN (hypertension) Current Visit: Yes Status: Chronic Qualifiers: Hypertension type: primary hypertension Qualified Code(s): I10 - Essential (primary) hypertension (4) UTI (urinary tract infection) Current Visit: Yes Status: Acute - Plan Continue steroid, vitamin supplementation and zinc supplementation. Patient started on Remdesivir. Seen by pulmonary and started on Baracitinib Monitor inflammatory markers. Urine culture growing Klebsiella. Continue IV Rocephin. Patient to complete 5 days of treatment. Patient refusing fingerstick glucose monitoring.
[2021-04-05] MEDS: RIVAROXABAN 20 MG TABLET PO SCH (17:01)
[2021-04-05] MEDS: CEFTRIAXONE/SWI 1gm 1 GM/10 ML SYR IVP SCH (17:01)
[2021-04-05] MEDS: MORPHINE 2 MG/ML SYR IV PRN (21:09)
[2021-04-06 05:43] LABS: Absolute Lymphocytes (CBC) 0.8 K/uL (0.7-4.9); Basophils % 0.3 % (0-1.3); Hematocrit 41.4 % (36.0-45.0); Lymphocytes % 14.5 % (15.3-44.8); MPV 7.2 fL (7.6-11.3); RBC Red Blood Cell Count 4.87 M/uL (3.86-4.86)
[2021-04-06 05:59] LABS: ALT/SGPT 41 U/L (12-78); AST/SGOT 48 U/L (15-37); Albumin 2.7 g/dL (3.4-5.0); Alkaline Phosphatase 43 U/L (45-117); BUN Blood Urea Nitrogen 18 mg/dL (7-18); Bicarbonate 30 mmol/L (21-32); Bilirubin Direct 0.2 mg/dL (0-0.2); Bilirubin Total 0.8 mg/dL (0.2-1.0); Glucose Level 181 mg/dL (74-106); Potassium 3.8 mmol/L (3.5-5.1); Sodium Level 142 mmol/L (136-145)
[2021-04-06] MEDS: INSULIN -REGULAR HUMAN 50 UNIT/0.5 ML ML SQ SCH ×4 (07:30→21:00)
[2021-04-06] MEDS: FAMOTIDINE 20 MG TAB PO SCH ×2 (08:50→21:38)
[2021-04-06] MEDS: ASPIRIN EC 81 MG TAB PO SCH (08:50)
[2021-04-06] MEDS: ZINC SULFATE 220 MG CAP PO SCH (08:50)
[2021-04-06] MEDS: GUAIFENESIN/DM 5 ML UCUP PO PRN ×2 (08:50→22:23)
[2021-04-06] MEDS: VITAMIN D 1000 UNIT TAB PO SCH (08:50)
[2021-04-06] MEDS: THIAMINE HCL 100 MG TABLET PO SCH (08:50)
[2021-04-06] MEDS: ASCORBIC ACID 500 MG TABLET PO SCH ×4 (08:50→21:38)
[2021-04-06] MEDS: METHYLPREDNISOLONE 40 MG INJ IV SCH ×2 (08:51→21:39)
[2021-04-06] MEDS: BARICITINIB 2 MG TABLET PO SCH (08:59)
[2021-04-06] MEDS: REMDESIVIR (EUA) 100 MG in NA CHLORIDE 0.9% 250 ML IV SCH (09:44)
[2021-04-06] MEDS ORDERED: POTASSIUM CL SA 10 MEQ TAB PO ONE (12:30)
[2021-04-06] MEDS: CEFTRIAXONE 1 GM/NS 50 ML 1 GM/50 ML BAG IV SCH (17:33)
[2021-04-06] MEDS: RIVAROXABAN 20 MG TABLET PO SCH (17:33)
[2021-04-06] MEDS: MELATONIN 5 MG TABLET PO PRN (21:39)
[2021-04-07 05:48] LABS: Albumin 2.7 g/dL (3.4-5.0); Bilirubin Direct 0.2 mg/dL (0-0.2); Bilirubin Total 0.7 mg/dL (0.2-1.0); Protein, Total 5.9 g/dL (6.4-8.2)
[2021-04-07] MEDS: INSULIN -REGULAR HUMAN 50 UNIT/0.5 ML ML SQ SCH ×4 (07:17→20:58)
[2021-04-07] MEDS: BARICITINIB 2 MG TABLET PO SCH (09:40)
[2021-04-07] MEDS: REMDESIVIR (EUA) 100 MG in NA CHLORIDE 0.9% 250 ML IV SCH (09:40)
[2021-04-07] MEDS: ASPIRIN EC 81 MG TAB PO SCH (09:58)
[2021-04-07] MEDS: THIAMINE HCL 100 MG TABLET PO SCH (09:59)
[2021-04-07] MEDS: METHYLPREDNISOLONE 40 MG INJ IV SCH ×2 (09:59→20:48)
[2021-04-07] MEDS: VITAMIN D 1000 UNIT TAB PO SCH (09:59)
[2021-04-07] MEDS: FAMOTIDINE 20 MG TAB PO SCH ×2 (09:59→20:48)
[2021-04-07] MEDS: ASCORBIC ACID 500 MG TABLET PO SCH ×4 (09:59→20:48)
[2021-04-07] MEDS: ZINC SULFATE 220 MG CAP PO SCH (10:00)
[2021-04-07] MEDS: ONDANSETRON 4 MG/2 ML VIAL IV PRN (12:25)
--- NOTE | 2021-04-07 15:34 | P.PN ---
Subjective Date of Service: 04/07/21 Chief Complaint: covid pneumonia Patient is now maintained on high-flow oxygen with 100% FiO2 Physical Examination - Vital Signs Temperature: 97.5 F Blood Pressure: 182/74 Pulse: 72 Respirations: 22 Pulse Ox (%): 91 - Physical Exam General: Alert, Mild distress HEENT: Other (HFNC) Respiratory: Other (Mildly labored breathing.) Cardiovascular: No edema Gastrointestinal: Soft and benign, Non-distended Musculoskeletal: No swelling Integumentary: No rashes, No cyanosis Neurological: Normal strength at 5/5 x4 extr Assessment And Plan - Current Problems (Diagnosis) (1) CHF (congestive heart failure) Current Visit: Yes Status: Acute Qualifiers: Heart failure type: unspecified Heart failure chronicity: chronic Qualified Code(s): I50.9 - Heart failure, unspecified (2) Pneumonia due to COVID-19 virus Current Visit: Yes Status: Acute (3) HTN (hypertension) Current Visit: Yes Status: Chronic Qualifiers: Hypertension type: primary hypertension Qualified Code(s): I10 - Essential (primary) hypertension (4) UTI (urinary tract infection) Current Visit: Yes Status: Acute - Plan Continue steroid, vitamin supplementation and zinc supplementation. Completed Remdesivir. On Baracitinib Monitor inflammatory markers. Urine culture growing Klebsiella. Continue IV Rocephin. Patient to complete 5 days of treatment. Patient refusing fingerstick glucose monitoring. Morning blood sugar is moderately elevated. Will continue to monitor and start low dose insulin as needed for steroid induced hyperglycemia. Prognosis guarded.
[2021-04-07] MEDS: RIVAROXABAN 20 MG TABLET PO SCH (17:36)
[2021-04-07] MEDS: CEFTRIAXONE 1 GM/NS 50 ML 1 GM/50 ML BAG IV SCH (17:37)
[2021-04-08 04:16] LABS: Absolute Lymphocytes (CBC) 0.8 K/uL (0.7-4.9); Basophils % 0.3 % (0-1.3); Hematocrit 42.5 % (36.0-45.0); Lymphocytes % 11.4 % (15.3-44.8); MPV 7.4 fL (7.6-11.3); RBC Red Blood Cell Count 4.98 M/uL (3.86-4.86)
[2021-04-08 04:38] LABS: BUN Blood Urea Nitrogen 18 mg/dL (7-18); Bicarbonate 27 mmol/L (21-32); Glucose Level 182 mg/dL (74-106); Potassium 4.4 mmol/L (3.5-5.1); Sodium Level 139 mmol/L (136-145)
[2021-04-08] MEDS: INSULIN -REGULAR HUMAN 50 UNIT/0.5 ML ML SQ SCH ×4 (07:30→20:47)
[2021-04-08] MEDS: METHYLPREDNISOLONE 40 MG INJ IV SCH ×2 (09:27→20:45)
[2021-04-08] MEDS: VITAMIN D 1000 UNIT TAB PO SCH (09:28)
[2021-04-08] MEDS: ASCORBIC ACID 500 MG TABLET PO SCH ×4 (09:28→20:45)
[2021-04-08] MEDS: FAMOTIDINE 20 MG TAB PO SCH ×2 (09:28→20:45)
[2021-04-08] MEDS: ZINC SULFATE 220 MG CAP PO SCH (09:28)
[2021-04-08] MEDS: ASPIRIN EC 81 MG TAB PO SCH (09:28)
[2021-04-08] MEDS: THIAMINE HCL 100 MG TABLET PO SCH (09:28)
[2021-04-08] MEDS: BARICITINIB 2 MG TABLET PO SCH (09:29)
--- NOTE | 2021-04-08 14:33 | P.PN ---
Subjective Date of Service: 04/08/21 Chief Complaint: covid pneumonia Patient is now maintained on high-flow oxygen with 100% FiO2. No changes from yesterday. Physical Examination - Vital Signs Temperature: 98.2 F Blood Pressure: 137/65 Pulse: 61 Respirations: 20 Pulse Ox (%): 89 - Physical Exam General: In no apparent distress HEENT: Other (HFNC) Neck: JVD not distended Respiratory: Other (Nonlabored breathing) Cardiovascular: No edema, Regular rate/rhythm, Normal S1 S2 Gastrointestinal: Soft and benign, Non-distended Musculoskeletal: No swelling Integumentary: No rashes Neurological: Normal strength at 5/5 x4 extr Assessment And Plan - Current Problems (Diagnosis) (1) CHF (congestive heart failure) Current Visit: Yes Status: Acute Qualifiers: Heart failure type: unspecified Heart failure chronicity: chronic Qualified Code(s): I50.9 - Heart failure, unspecified (2) Pneumonia due to COVID-19 virus Current Visit: Yes Status: Acute (3) HTN (hypertension) Current Visit: Yes Status: Chronic Qualifiers: Hypertension type: primary hypertension Qualified Code(s): I10 - Essential (primary) hypertension (4) UTI (urinary tract infection) Current Visit: Yes Status: Acute - Plan Continue steroid, vitamin supplementation and zinc supplementation. Completed Remdesivir. On Baracitinib Monitor inflammatory markers. Urine culture growing Klebsiella. Continue IV Rocephin. Patient to complete 5 days of treatment. Antibiotics day 3 Patient refusing fingerstick glucose monitoring. Morning blood sugar is moderately elevated. Will continue to monitor and start low dose insulin as needed for steroid induced hyperglycemia. Prognosis guarded.
[2021-04-08] MEDS: RIVAROXABAN 20 MG TABLET PO SCH (17:59)
[2021-04-08] MEDS: CEFTRIAXONE 1 GM/NS 50 ML 1 GM/50 ML BAG IV SCH (18:00)
[2021-04-09] MEDS: INSULIN -REGULAR HUMAN 50 UNIT/0.5 ML ML SQ SCH ×4 (07:02→20:51)
[2021-04-09] MEDS: METHYLPREDNISOLONE 40 MG INJ IV SCH ×2 (09:00→20:51)
[2021-04-09] MEDS: BARICITINIB 2 MG TABLET PO SCH (09:12)
[2021-04-09] MEDS: ASCORBIC ACID 500 MG TABLET PO SCH ×4 (09:12→20:51)
[2021-04-09] MEDS: ZINC SULFATE 220 MG CAP PO SCH (09:12)
[2021-04-09] MEDS: VITAMIN D 1000 UNIT TAB PO SCH (09:12)
[2021-04-09] MEDS: FAMOTIDINE 20 MG TAB PO SCH ×2 (09:13→20:50)
[2021-04-09] MEDS: ASPIRIN EC 81 MG TAB PO SCH (09:13)
[2021-04-09] MEDS: THIAMINE HCL 100 MG TABLET PO SCH (09:13)
--- NOTE | 2021-04-09 11:25 | P.PN ---
Subjective Date of Service: 04/09/21 Chief Complaint: covid pneumonia Nc still on highconc of O2 Review of Systems Respiratory: Shortness of Breath Physical Examination - Vital Signs Temperature: 97.9 F Blood Pressure: 126/69 Pulse: 90 Respirations: 26 Pulse Ox (%): 90 - Physical Exam General: Alert, Oriented x3, Cooperative Assessment & Plan - Problems (Diagnosis) (1) Pneumonia due to COVID-19 virus Current Visit: Yes Status: Acute Plan: Resp failure/ NC high conc of O2/ UTI kleb / on max therapy
--- NOTE | 2021-04-09 15:11 | P.PN ---
Subjective Date of Service: 04/09/21 Chief Complaint: covid pneumonia No changes from yesterday. Patient is now maintained on high-flow oxygen with 100% FiO2. Physical Examination - Vital Signs Temperature: 97.7 F Blood Pressure: 134/79 Pulse: 81 Respirations: 24 Pulse Ox (%): 90 - Physical Exam General: In no apparent distress, Oriented x3 HEENT: Mucous membr. moist/pink Neck: JVD not distended Respiratory: Other (Nonlabored breathing) Cardiovascular: Regular rate/rhythm, Normal S1 S2 Gastrointestinal: Soft and benign, Non-distended Musculoskeletal: No swelling Integumentary: No rashes Neurological: Normal strength at 5/5 x4 extr Assessment And Plan - Current Problems (Diagnosis) (1) CHF (congestive heart failure) Current Visit: Yes Status: Acute Qualifiers: Heart failure type: unspecified Heart failure chronicity: chronic Qualified Code(s): I50.9 - Heart failure, unspecified (2) Pneumonia due to COVID-19 virus Current Visit: Yes Status: Acute (3) HTN (hypertension) Current Visit: Yes Status: Chronic Qualifiers: Hypertension type: primary hypertension Qualified Code(s): I10 - Essential (primary) hypertension (4) UTI (urinary tract infection) Current Visit: Yes Status: Acute - Plan Continue steroid, vitamin supplementation and zinc supplementation. Completed Remdesivir. On Baracitinib. C. reactive protein markedly decreased. Pulmonary is following. Urine culture growing Klebsiella. Continue IV Rocephin. Patient to complete 5 days of treatment. Antibiotics day 4 Patient refusing fingerstick glucose monitoring. Morning blood sugar is moderately elevated. Will continue to monitor and start low dose insulin as needed for steroid induced hyperglycemia. Prognosis guarded.
[2021-04-09] MEDS: CEFTRIAXONE 1 GM/NS 50 ML 1 GM/50 ML BAG IV SCH (17:44)
[2021-04-09] MEDS: RIVAROXABAN 20 MG TABLET PO SCH (17:44)
[2021-04-10 05:01] LABS: Absolute Lymphocytes (CBC) 0.5 K/uL (0.7-4.9); Hematocrit 44.8 % (36.0-45.0); Lymphocytes % 4.7 % (15.3-44.8); MPV 7.7 fL (7.6-11.3); RBC Red Blood Cell Count 5.28 M/uL (3.86-4.86)
[2021-04-10 05:38] LABS: BUN Blood Urea Nitrogen 22 mg/dL (7-18); Bicarbonate 24 mmol/L (21-32); Ferritin 641.1 ng/mL (8-388); Glucose Level 198 mg/dL (74-106); Sodium Level 138 mmol/L (136-145)
[2021-04-10 05:41] LABS: Potassium 4.5 mmol/L (3.5-5.1)
[2021-04-10 06:10] LABS: Blood Morphology Comment NOT SEEN (NOT SEEN); Platelet Estimate ADEQ
--- NOTE | 2021-04-10 06:16 | P.PN ---
Subjective Date of Service: 04/10/21 Chief Complaint: covid pneumonia Subjective: Improving (Feels slightly better today, oxygen requirement slightly increased, on high flow nasal cannula 100% FiO2. No new complaints) Review of Systems 10-point ROS is otherwise unremarkable Physical Examination - Vital Signs Temperature: 98.3 F Blood Pressure: 114/56 Pulse: 77 Respirations: 18 Pulse Ox (%): 88 Assessment & Plan Physician Review Additional Text: Physical exam GEN: Alert, oriented, NAD HEENT: Normal conjunctiva, sclera anicteric CV: Regular rate and rhythm, no edema Pulm: Mildly labored respirations on high flow nasal cannula ABD: Soft, nontender, nondistended MSK: No joint tenderness Integumentary: No rashes Neuro: Normal speech, normal affect Problem List acute hypoxemic respiratory failure secondary to COVID-19 pneumonia UTI, acute cystitis chronic CHF, unknown type HTN Continue steroid, vitamin supplementation and zinc supplementation. Completed Remdesivir. On Baracitinib. CRP improved Pulmonary is following. Urine culture growing Klebsiella. Continue IV Rocephin. Patient to complete 5 days of treatment. Patient refusing fingerstick glucose monitoring CXR unchanged compared to 1 week ago pt feels slightly better but oxygen requirement is worsening guarded prognosis Time Spent Managing Pts Care (In Minutes): 35
--- NOTE | 2021-04-10 06:59 | RAD REPORT ---
EXAM DESCRIPTION: RAD - Chest Single View - 04/10/2021 6:00 am CLINICAL HISTORY: penumonia COMPARISON: April 02 portable exam TECHNIQUE: AP portable chest image was obtained 04/10/2021 6:00 am . FINDINGS: Lung volumes are low. Bilateral pneumonia findings are still present. Significant differen ce exist between the 2 exam techniques. Overall, no improvement in the pneumonia is identifiable. Dalia arent worsening on the right is believed be more due to technique of image acquisition than true ramirez ge in lung parenchymal disease. Heart and vasculature are normal. No measurable pleural effusion and no pneumothorax. No acute bony abnormality seen. No acute aortic findings suspected. IMPRESSION: Bilateral pneumonia not significantly different from April 02 study.
[2021-04-10] MEDS: INSULIN -REGULAR HUMAN 50 UNIT/0.5 ML ML SQ SCH ×4 (07:21→20:45)
[2021-04-10] MEDS: THIAMINE HCL 100 MG TABLET PO SCH (09:16)
[2021-04-10] MEDS: BARICITINIB 2 MG TABLET PO SCH (09:16)
[2021-04-10] MEDS: ASPIRIN EC 81 MG TAB PO SCH (09:16)
[2021-04-10] MEDS: ZINC SULFATE 220 MG CAP PO SCH (09:16)
[2021-04-10] MEDS: VITAMIN D 1000 UNIT TAB PO SCH (09:16)
[2021-04-10] MEDS: FAMOTIDINE 20 MG TAB PO SCH ×2 (09:16→20:44)
[2021-04-10] MEDS: ASCORBIC ACID 500 MG TABLET PO SCH ×4 (09:16→20:44)
[2021-04-10] MEDS: METHYLPREDNISOLONE 40 MG INJ IV SCH ×2 (09:17→20:44)
[2021-04-10] MEDS: RIVAROXABAN 20 MG TABLET PO SCH (17:18)
[2021-04-10] MEDS: HYDROCODONE/CHLORPHEN 5 ML/OSYR PO PRN (17:18)
[2021-04-10] MEDS: CEFTRIAXONE 1 GM/NS 50 ML 1 GM/50 ML BAG IV SCH (17:31)
[2021-04-10] MEDS: ENSURE HIGH PROTEIN 237 ML CAN PO SCH (20:44)
--- NOTE | 2021-04-11 06:24 | P.PN ---
Subjective Date of Service: 04/11/21 Chief Complaint: covid pneumonia Subjective: Worsening (feels more short of breath, more tachycardic, on BIPAP overnight. 100% fio2. Spo2: ~85-87%. desatures when trying to eat.) Review of Systems 10-point ROS is otherwise unremarkable Physical Examination - Vital Signs Temperature: 97.2 F Blood Pressure: 129/59 Pulse: 90 Respirations: 17 Pulse Ox (%): 86 Assessment & Plan Physician Review Additional Text: Physical exam GEN: Alert, oriented HEENT: Normal conjunctiva, sclera anicteric CV: tachycardic - sinus, no edema Pulm: Mildly labored respirations on BIPAP ABD: Soft, nontender, nondistended MSK: No joint tenderness Integumentary: No rashes Neuro: Normal speech, normal affect Problem List acute hypoxemic respiratory failure secondary to COVID-19 pneumonia UTI, acute cystitis chronic CHF, unknown type HTN anxiety Continue steroid, vitamin supplementation and zinc supplementation. Completed Remdesivir. On Baracitinib. Pulmonary is following. Urine culture: Klebsiella. Continue IV Rocephin. Patient to complete 5 days of treatment today Patient refusing fingerstick glucose monitoring CXR slightly worse today oxygen requirement increasing patient does seem to have some anxiety, start ativan 0.25, can increase as needed BIPAP / HFNC as needed discussed clinical status with patient, patient's son, and severe covid, maximal therapy patient is considering if she would want to be on ventilator or not. I told her she will default to yes in an emergency until she tells us otherwise advised her to come to a decision today as she may need the ventilator in the next 48hrs guarded prognosis Time Spent Managing Pts Care (In Minutes): 35
[2021-04-11 07:03] LABS: Absolute Lymphocytes (CBC) 0.5 K/uL (0.7-4.9); Basophils % 0.2 % (0-1.3); Hematocrit 46.1 % (36.0-45.0); Lymphocytes % 3.9 % (15.3-44.8); MPV 8.1 fL (7.6-11.3)
[2021-04-11 07:29] LABS: ALT/SGPT 22 U/L (12-78); AST/SGOT 15 U/L (15-37); Albumin 2.7 g/dL (3.4-5.0); Alkaline Phosphatase 46 U/L (45-117); BUN Blood Urea Nitrogen 20 mg/dL (7-18); Bicarbonate 25 mmol/L (21-32); Bilirubin Total 1.4 mg/dL (0.2-1.0); Ferritin 697.8 ng/mL (8-388); Glucose Level 175 mg/dL (74-106); Magnesium 2.4 mg/dL (1.8-2.4); Potassium 4.3 mmol/L (3.5-5.1); Protein, Total 6.2 g/dL (6.4-8.2); Sodium Level 139 mmol/L (136-145)
[2021-04-11] MEDS: INSULIN -REGULAR HUMAN 50 UNIT/0.5 ML ML SQ SCH ×4 (07:30→21:00)
[2021-04-11] MEDS: BARICITINIB 2 MG TABLET PO SCH (07:48)
[2021-04-11] MEDS: VITAMIN D 1000 UNIT TAB PO SCH (07:48)
[2021-04-11] MEDS: ASPIRIN EC 81 MG TAB PO SCH (07:48)
[2021-04-11] MEDS: FAMOTIDINE 20 MG TAB PO SCH ×2 (07:49→21:00)
[2021-04-11] MEDS: METHYLPREDNISOLONE 40 MG INJ IV SCH ×2 (07:49→21:00)
[2021-04-11] MEDS: ZINC SULFATE 220 MG CAP PO SCH (07:50)
[2021-04-11] MEDS: ASCORBIC ACID 500 MG TABLET PO SCH ×4 (07:50→21:00)
--- NOTE | 2021-04-11 08:14 | RAD REPORT ---
EXAM DESCRIPTION: RAD - Chest Single View - 04/11/2021 5:27 am CLINICAL HISTORY: penumonia COMPARISON: Chest Single View dated 04/10/2021; Chest Single View dated 04/02/2021; Chest Pa And Lat ( 2 Views) dated 12/28/2020; CHEST SINGLE VIEW dated 07/14/2010 FINDINGS: Lines: None. Lungs: Widespread bilateral airspace disease with worsened aeration compared with 04/10/2021 Pleural: No significant pleural effusions or pneumothorax. Cardiac: Cardiomegaly appear Bones: No acute fractures. Other: IMPRESSION: Worsened aeration of the lungs bilaterally concerning for multifocal pneumonia, includin g Covid-19.
[2021-04-11] MEDS ORDERED: LORazepam 2 MG/ML VIAL IV PRN (09:00)
[2021-04-11] MEDS: THIAMINE HCL 100 MG TABLET PO SCH (09:00)
[2021-04-11] MEDS: ENSURE HIGH PROTEIN 237 ML CAN PO SCH ×3 (09:00→21:00)
[2021-04-11 11:19] LABS: Urine Blood Trace-intact (Negative); Urine Glucose Trace (Negative); Urine Protein 1+ (Negative); Urine Specific Gravity >=1.030 (1.005-1.030); Urine pH 5.5 (5.0-7.0)
[2021-04-11] MEDS: LORazepam 2 MG/ML VIAL IV PRN ×2 (18:03→22:50)
[2021-04-11] MEDS: CEFTRIAXONE 1 GM/NS 50 ML 1 GM/50 ML BAG IV SCH (18:07)
[2021-04-11] MEDS: RIVAROXABAN 20 MG TABLET PO SCH (18:07)
[2021-04-11] MEDS: MORPHINE 2 MG/ML SYR IV PRN (22:50)
[2021-04-11] MEDS ORDERED: LORazepam 2 MG/ML VIAL ONE (22:55)
[2021-04-11] MEDS ORDERED: MORPHINE 2 MG/ML SYR ONE (22:56)
[2021-04-12 05:34] LABS: Absolute Lymphocytes (CBC) 1.2 K/uL (0.7-4.9); Basophils % 0.4 % (0-1.3); Hematocrit 47.7 % (36.0-45.0); Lymphocytes % 6.2 % (15.3-44.8); MPV 8.4 fL (7.6-11.3); RBC Red Blood Cell Count 5.58 M/uL (3.86-4.86)
[2021-04-12] MEDS: LORazepam 2 MG/ML VIAL IV PRN ×2 (05:46→22:48)
[2021-04-12 06:04] LABS: ALT/SGPT 27 U/L (12-78); AST/SGOT 25 U/L (15-37); Albumin 2.7 g/dL (3.4-5.0); Alkaline Phosphatase 60 U/L (45-117); BUN Blood Urea Nitrogen 24 mg/dL (7-18); Bicarbonate 26 mmol/L (21-32); Bilirubin Total 1.4 mg/dL (0.2-1.0); Ferritin 1041.3 ng/mL (8-388); Glucose Level 190 mg/dL (74-106); Magnesium 2.5 mg/dL (1.8-2.4); Protein, Total 6.2 g/dL (6.4-8.2); Sodium Level 140 mmol/L (136-145)
--- NOTE | 2021-04-12 06:05 | P.PN ---
Subjective Date of Service: 04/12/21 Chief Complaint: covid pneumonia Subjective: Worsening (More tachycardic and tachypneic overnight, maximum therapy on BiPAP 100% FiO2. Transferred to ICU. Patient initially refused intubation, states she wanted to talk with her family. Family arrived and after long discussion have decided DNR.) Review of Systems 10-point ROS is otherwise unremarkable Physical Examination - Vital Signs Temperature: 96.9 F Blood Pressure: 92/60 Pulse: 123 Respirations: 34 Pulse Ox (%): 89 Assessment & Plan Physician Review Additional Text: Physical exam GEN: Fatigued, alert/oriented HEENT: Normal conjunctiva, sclera anicteric CV: tachycardic to [id number], no edema Pulm: Mildly labored respirations on BIPAP, 100% FiO2 ABD: Soft, nontender, nondistended MSK: No joint tenderness Integumentary: No rashes Neuro: Normal speech, normal affect, moves all extremities Problem List acute hypoxemic respiratory failure secondary to COVID-19 pneumonia UTI, acute cystitis chronic CHF, unknown type HTN anxiety Continue steroid, vitamin supplementation and zinc supplementation. Completed Remdesivir. On Baracitinib. Will consult pharmacy to see if can be changed to IV, patient unable to take p.o. due to BiPAP dependency Pulmonary is following. Urine culture: Klebsiella. Completed 5 days IV Rocephin. Inflammatory markers worsening, review of systems remains negative/shortness of breath and anxiety Start Levaquin, repeat UA, obtain blood cultures Patient states she feels slightly worse than yesterday, unable to tolerate Dobbhoff yesterday, states she is hungry/thirsty Long discussion with family and patient, want to proceed with DNR. Would not want pressors either Otherwise would want all other treatment except resuscitation/pressors/intubation There seems to be component of anxiety, heart rate slightly improved with Ativan, will continue and titrate as needed Patient given a small bolus of normal saline this morning, heart rate initially responded slightly, will continue with gentle IV fluids Discussed with family, agreeable to PICC line, TPN BIPAP / HFNC as needed guarded prognosis Time Spent Managing Pts Care (In Minutes): 45
[2021-04-12 06:34] LABS: Arterial Blood Carboxyhemoglob 0.8 % (0-1.5); Blood Gas Oxyhemoglobin 90.1 % (94-97); Blood O2 Saturation 91.7 % (92-98.5)
[2021-04-12] MEDS: INSULIN -REGULAR HUMAN 50 UNIT/0.5 ML ML SQ SCH ×4 (06:44→21:00)
[2021-04-12] MEDS ORDERED: NA CHLORIDE 0.9% 500 ML ONE (08:09)
[2021-04-12 08:14] LABS: Blood Morphology Comment NOT SEEN (NOT SEEN); Platelet Estimate ADEQ
[2021-04-12] MEDS: ENSURE HIGH PROTEIN 237 ML CAN PO SCH ×3 (08:21→20:46)
[2021-04-12] MEDS: ASPIRIN EC 81 MG TAB PO SCH (08:21)
[2021-04-12] MEDS: FAMOTIDINE 20 MG TAB PO SCH (08:21)
[2021-04-12] MEDS: BARICITINIB 2 MG TABLET PO SCH (08:21)
[2021-04-12] MEDS: ZINC SULFATE 220 MG CAP PO SCH (08:22)
[2021-04-12] MEDS: VITAMIN D 1000 UNIT TAB PO SCH (08:22)
[2021-04-12] MEDS: THIAMINE HCL 100 MG TABLET PO SCH (08:22)
[2021-04-12] MEDS: ASCORBIC ACID 500 MG TABLET PO SCH ×3 (08:22→17:00)
[2021-04-12] MEDS: METHYLPREDNISOLONE 40 MG INJ IV SCH ×2 (08:41→20:47)
[2021-04-12] MEDS: Levofloxacin 750mg IV 750 MG/150 ML BAG IV SCH (08:41)
[2021-04-12] MEDS: NA CHLORIDE 0.9% 1,000 ML IV SCH (08:51)
[2021-04-12 09:29] LABS: Urine Appearance CLOUDY (Clear); Urine Blood NEGATIVE (Negative); Urine Color ORANGE (Yellow); Urine Glucose NEGATIVE (Negative); Urine Protein 1+ (Negative); Urine Specific Gravity >=1.030 (1.005-1.030); Urine pH 5.5 (5.0-7.0)
[2021-04-12 09:44] LABS: Urine Microscopic Reflex ORDER UMIC
[2021-04-12 10:25] LABS: Urine Bacteria <20 /HPF (<20)
[2021-04-12 10:26] LABS: Urine Mucus SLIGHT /HPF (NONE SEEN)
[2021-04-12 10:50] LABS: Urine Bilirubin 1+ (Negative)
[2021-04-12] MEDS: MORPHINE 2 MG/ML SYR IV PRN (11:19)
[2021-04-12] MEDS: RIVAROXABAN 20 MG TABLET PO SCH (17:00)
--- NOTE | 2021-04-12 20:23 | P.PN ---
Subjective Date of Service: 04/12/21 Chief Complaint: Resp failure Pt in ICU not doign well on max therapy Review of Systems is unable to be obtained Physical Examination - Vital Signs Temperature: 96.7 F Blood Pressure: 105/79 Pulse: 99 Respirations: 30 Pulse Ox (%): 86 - Physical Exam General: Alert, Cooperative Assessment & Plan - Problems (Diagnosis) (1) Pneumonia due to COVID-19 virus Current Visit: Yes Status: Acute Plan: Resp failire on max O2 and BIPAP. on max therapy/ Declined Dobhoff DNR, LAs reviewed/ Prog poor. Family agreeable wiht TPN CXRY worsening
[2021-04-12] MEDS: ENOXAPARIN 80 MG/0.8 ML SQ SCH (20:46)
[2021-04-12] MEDS: FAMOTIDINE 20 MG/2 ML VIAL IV SCH (21:08)
[2021-04-13] MEDS: NA CHLORIDE 0.9% 1,000 ML IV SCH (04:52)
[2021-04-13 05:27] LABS: Absolute Lymphocytes (CBC) 0.3 K/uL (0.7-4.9); Basophils % 0.2 % (0-1.3); Hematocrit 42.2 % (36.0-45.0); Lymphocytes % 2.5 % (15.3-44.8); MPV 8.7 fL (7.6-11.3); RBC Red Blood Cell Count 4.88 M/uL (3.86-4.86)
--- NOTE | 2021-04-13 05:47 | P.PN ---
Subjective Date of Service: 04/13/21 Chief Complaint: Resp failure Subjective: Other (Heart rate improved, not as tachypneic either. Oxygen saturation in the high 80s, up to 91 at times. On maximum BiPAP, FiO2 100%. White count improved, inflammatory markers worsening, patient states she is fe eling a little better. She also states she wants to be full code, not DNR) Review of Systems 10-point ROS is otherwise unremarkable Physical Examination - Vital Signs Temperature: 97 F Blood Pressure: 101/66 Pulse: 91 Respirations: 28 Pulse Ox (%): 84 Assessment & Plan Physician Review Additional Text: Physical exam GEN: Fatigued, alert/oriented x3 HEENT: Normal conjunctiva, sclera anicteric CV: Regular rate and rhythm, no edema Pulm: Mildly labored respirations on BIPAP, 100% FiO2 ABD: Soft, nontender, nondistended Integumentary: No rashes Neuro: Normal speech, normal affect, moves all extremities Problem List acute hypoxemic respiratory failure secondary to COVID-19 pneumonia UTI, acute cystitis chronic CHF, unknown type HTN anxiety Continue steroid, vitamin supplementation and zinc supplementation. Completed Remdesivir. On Baracitinib. Patient did not receive yesterday, she cannot tolerate coming off BiPAP mask, unfortunately Actemra is on backorder. We will see how patient does today, if can take p.o. PICC line ordered for today, start TPN. Patient did not tolerate Dobbhoff IV fluids given yesterday, heart rate responded well, can discontinue as we will start TPN Pulmonary is following. Urine culture: Klebsiella. Completed 5 days IV Rocephin. Inflammatory markers worsening, suspect worsening of her Covid pneumonia. Possibility of bacterial superinfection. Cultures obtained, Levaquin started 04/12 After long discussion with the patient and her family, they were all in agreem ent for DNR, and no pressors on 04/12. This morning, patient states she wants to continue to think about this, and would like to be a full code until she states otherwise. guarded prognosis, continue ICU level of care Time Spent Managing Pts Care (In Minutes): 35
[2021-04-13 05:51] LABS: ALT/SGPT 22 U/L (12-78); AST/SGOT 14 U/L (15-37); Albumin 2.2 g/dL (3.4-5.0); Alkaline Phosphatase 54 U/L (45-117); BUN Blood Urea Nitrogen 20 mg/dL (7-18); Bicarbonate 25 mmol/L (21-32); Bilirubin Total 0.6 mg/dL (0.2-1.0); Ferritin 1080.6 ng/mL (8-388); Glucose Level 199 mg/dL (74-106); Magnesium 2.5 mg/dL (1.8-2.4); Potassium 4.2 mmol/L (3.5-5.1); Protein, Total 5.6 g/dL (6.4-8.2); Sodium Level 141 mmol/L (136-145)
[2021-04-13 05:58] LABS: Arterial Blood Carboxyhemoglob 0.7 % (0-1.5); Blood Gas Oxyhemoglobin 91.7 % (94-97); Blood O2 Saturation 93.1 % (92-98.5)
[2021-04-13] MEDS: Levofloxacin 750mg IV 750 MG/150 ML BAG IV SCH (06:10)
[2021-04-13] MEDS: MORPHINE 2 MG/ML SYR IV PRN ×3 (06:16→22:37)
--- NOTE | 2021-04-13 07:16 | RAD REPORT ---
EXAM DESCRIPTION: RAD - Chest Single View - 04/13/2021 6:41 am CLINICAL HISTORY: SOB COMPARISON: Chest Single View dated 04/11/2021; Chest Single View dated 04/10/2021; Chest Single View dated 04/02/2021; Chest Pa And Lat (2 Views) dated 12/28/2020 FINDINGS: Lines: None. Lungs: Severe bilateral airspace disease without significant change compared with 04/11/2021 . Pleural: No significant pleural effusions or pneumothorax. Cardiac: Partially obscured. Bones: No acute fractures. Other: IMPRESSION: Severe bilateral airspace disease without significant change compared with 04/11/2021 .
[2021-04-13] MEDS: INSULIN -REGULAR HUMAN 50 UNIT/0.5 ML ML SQ SCH ×3 (07:23→16:30)
[2021-04-13] MEDS: BARICITINIB 2 MG TABLET PO SCH (08:25)
[2021-04-13] MEDS: FAMOTIDINE 20 MG/2 ML VIAL IV SCH ×2 (08:26→20:59)
[2021-04-13] MEDS: METHYLPREDNISOLONE 40 MG INJ IV SCH ×2 (08:26→20:59)
[2021-04-13] MEDS: ENOXAPARIN 80 MG/0.8 ML SQ SCH ×2 (08:26→20:59)
[2021-04-13] MEDS: ASPIRIN EC 81 MG TAB PO SCH (08:56)
[2021-04-13] MEDS: ENSURE HIGH PROTEIN 237 ML CAN PO SCH ×3 (08:57→19:53)
[2021-04-13] MEDS: THIAMINE HCL 100 MG TABLET PO SCH (08:57)
[2021-04-13] MEDS: VITAMIN D 1000 UNIT TAB PO SCH (08:58)
[2021-04-13] MEDS ORDERED: FUROSEMIDE 20 MG/ 2ML VIAL IV ONE (11:07)
--- NOTE | 2021-04-13 11:13 | P.PN ---
Subjective Date of Service: 04/13/21 Chief Complaint: Resp failure NC DNR rescended. still very hypoxic Review of Systems is unable to be obtained Physical Examination - Vital Signs Temperature: 98.3 F Blood Pressure: 127/72 Pulse: 82 Respirations: 32 Pulse Ox (%): 88 - Physical Exam General: Alert, Cooperative Assessment & Plan - Problems (Diagnosis) (1) Pneumonia due to COVID-19 virus Current Visit: Yes Status: Acute Plan: Resp failure Trial of LAsix CXRY severe COVID, PIC line inplace willstart TPN,DNR rescended.WBC decliningDC IVF progpoor, ABG severe hypoxemia/ on Barcirnib
[2021-04-13] MEDS ORDERED: AA 5%/D20W/ELECTROLYTES-TPN 2,000 ML, Lipids 20% 250 ML with MULTIVITAMINS INJ 10 ML IV SCH ×3 (17:00)
--- NOTE | 2021-04-13 17:12 | RAD REPORT ---
EXAM DESCRIPTION: RAD - Chest Single View - 04/13/2021 5:04 pm CLINICAL HISTORY: Picc line placement COMPARISON: Chest Single View dated 04/13/2021; Chest Single View dated 04/11/2021; Chest Single View dated 04/10/2021; Chest Single View dated 04/02/2021 FINDINGS: Portable chest was obtained following placement of a right upper extremity PICC line. The catheter tip projects over the SVC..
[2021-04-13] MEDS ORDERED: GLUCAGON 1 MG/VIAL IM PRN (17:59)
[2021-04-13] MEDS ORDERED: D50W 25 GM/50 ML SYRINGE IV PRN (17:59)
[2021-04-13] MEDS: FLUCONAZOLE 200mg IVPB 200 MG/100 ML BAG IV SCH (18:40)
[2021-04-13] MEDS: ONDANSETRON 4 MG/2 ML VIAL IV PRN (22:45)
[2021-04-14] MEDS ORDERED: INSULIN -REGULAR HUMAN 50 UNIT/0.5 ML ML SQ SCH
--- NOTE | 2021-04-14 05:55 | P.PN ---
Date of Service: 04/14/21 Subjective: Patient feels she is improving, breathing more comfortably, still on 100% FiO2 BiPAP, but does appear more comfortable, SPO2: 88-92% Becomes hypoxic quickly with movement, cannot tolerate more than few seconds of BiPAP mask Patient states she has sore mouth, very dry and hungry. Review of Systems 10-point ROS is otherwise unremarkable Physical exam GEN: AOX3 HEENT: Normal conjunctiva, sclera anicteric CV: Regular rate and rhythm, no edema Pulm: Mildly labored respirations on BIPAP, 100% FiO2 ABD: Soft, nontender, nondistended Integumentary: No rashes Neuro: Normal speech, normal affect, moves all extremities Problem List Acute hypoxemic respiratory failure secondary to COVID-19 pneumonia UTI, acute cystitis chronic CHF, unknown type HTN anxiety Continue steroid, vitamin supplementation and zinc supplementation. Completed Remdesivir. On Baracitinib. Patient did not receive for a day, she cannot tolerate coming off BiPAP mask, unfortunately Actemra is on backorder. PICC line placed 04/13, TPN started 04/13. Patient did not tolerate Dobbhoff Pulmonary is following. Urine culture: Klebsiella. Completed 5 days IV Rocephin. Patient clinically worsened, inflammatory markers worsened on 04/12, cultures were repeated, patient empirically started on Levaquin Patient noted to have a white patches in oropharynx, concern for oral candidiasis. Start IV Diflucan, patient unable to take p.o. due to oxygen requirement Patient and family initially stated DNR, after further discussion, patient decided to proceed with full code on 04/13 Improving, but guarded prognosis, continue ICU level of care Time Spent Managing Pts Care (In Minutes): 35
[2021-04-14] MEDS: INSULIN -REGULAR HUMAN 50 UNIT/0.5 ML ML SQ SCH ×4 (06:49→23:21)
[2021-04-14] MEDS: Levofloxacin 750mg IV 750 MG/150 ML BAG IV SCH (06:49)
[2021-04-14 07:39] LABS: Hematocrit 40.2 % (36.0-45.0); RBC Red Blood Cell Count 4.69 M/uL (3.86-4.86)
[2021-04-14 07:40] LABS: ALT/SGPT 21 U/L (12-78); AST/SGOT 13 U/L (15-37); Albumin 2.1 g/dL (3.4-5.0); Alkaline Phosphatase 62 U/L (45-117); BUN Blood Urea Nitrogen 22 mg/dL (7-18); Bicarbonate 26 mmol/L (21-32); Bilirubin Total 0.5 mg/dL (0.2-1.0); Ferritin 772.8 ng/mL (8-388); Glucose Level 296 mg/dL (74-106); Magnesium 2.5 mg/dL (1.8-2.4); Potassium 4.1 mmol/L (3.5-5.1); Protein, Total 5.7 g/dL (6.4-8.2); Sodium Level 139 mmol/L (136-145)
[2021-04-14 07:40] LABS: Lymphocytes % 2.2 % (15.3-44.8); MPV 8.9 fL (7.6-11.3)
[2021-04-14 07:41] LABS: Absolute Lymphocytes (CBC) 0.3 K/uL (0.7-4.9); Basophils % 0.2 % (0-1.3)
[2021-04-14] MEDS: ASPIRIN EC 81 MG TAB PO SCH (09:00)
[2021-04-14] MEDS: VITAMIN D 1000 UNIT TAB PO SCH (09:00)
[2021-04-14] MEDS: ENSURE HIGH PROTEIN 237 ML CAN PO SCH ×3 (09:00→20:08)
[2021-04-14] MEDS: THIAMINE HCL 100 MG TABLET PO SCH (09:00)
[2021-04-14] MEDS: FAMOTIDINE 20 MG/2 ML VIAL IV SCH ×2 (09:58→20:04)
[2021-04-14] MEDS: ENOXAPARIN 80 MG/0.8 ML SQ SCH ×2 (09:58→20:04)
[2021-04-14] MEDS: BARICITINIB 2 MG TABLET PO SCH (09:58)
[2021-04-14] MEDS: METHYLPREDNISOLONE 40 MG INJ IV SCH ×2 (09:58→20:04)
[2021-04-14] MEDS: ONDANSETRON 4 MG/2 ML VIAL IV PRN (10:45)
[2021-04-14] MEDS: MORPHINE 2 MG/ML SYR IV PRN ×3 (12:20→23:21)
[2021-04-14] MEDS ORDERED: AA 5%/D20W/ELECTROLYTES-TPN 2,000 ML with MULTIVITAMINS INJ 10 ML IV SCH ×2 (17:00)
[2021-04-14] MEDS: FLUCONAZOLE 200mg IVPB 200 MG/100 ML BAG IV SCH (17:57)
[2021-04-15] MEDS: INSULIN -REGULAR HUMAN 50 UNIT/0.5 ML ML SQ SCH ×3 (05:22→17:57)
[2021-04-15 05:55] LABS: Absolute Lymphocytes (CBC) 0.3 K/uL (0.7-4.9); Hematocrit 39.2 % (36.0-45.0); Lymphocytes % 1.9 % (15.3-44.8); RBC Red Blood Cell Count 4.53 M/uL (3.86-4.86)
--- NOTE | 2021-04-15 05:56 | P.PN ---
Date of Service: 04/15/21 Subjective: Patient feels she is improving, breathing more comfortably, still on 100% FiO2 BiPAP still hypoxic with removal of mask, even for a sip of water reports dry mouth / oral pain improving. started diflucan yesterday for oral candidiasis Review of Systems 10-point ROS is otherwise unremarkable Physical exam GEN: AOX3 HEENT: Normal conjunctiva, sclera anicteric CV: Regular rate and rhythm, no edema Pulm: Mildly labored respirations on BIPAP, 100% FiO2 ABD: Soft, nontender, nondistended Integumentary: No rashes Neuro: Normal speech, normal affect, moves all extremities Problem List Acute hypoxemic respiratory failure secondary to COVID-19 pneumonia UTI, acute cystitis chronic CHF, unknown type HTN anxiety Continue steroid, vitamin supplementation and zinc supplementation. Completed Remdesivir. On Baracitinib. Patient did not receive for a day, she cannot tolerate coming off BiPAP mask, unfortunately Actemra is on backorder. PICC line placed 04/13, TPN started 04/13. Patient did not tolerate Dobbhoff Pulmonary is following. Urine culture: Klebsiella. Completed 5 days IV Rocephin. Patient clinically worsened, inflammatory markers worsened on 04/12, cultures were repeated, patient empirically started on Levaquin Patient noted to have a white patches in oropharynx, concern for oral candidiasis. Started IV Diflucan on 04/14, patient unable to take p.o. due to oxygen requirement. can transition to PO swish/swallow once oxygenation improves Patient and family initially stated DNR, after further discussion, patient decided to proceed with full code on 04/13 Improving, but guarded prognosis, continue ICU level of care Time Spent Managing Pts Care (In Minutes): 35
[2021-04-15 06:03] LABS: ALT/SGPT 19 U/L (12-78); AST/SGOT 14 U/L (15-37); Albumin 2.2 g/dL (3.4-5.0); Alkaline Phosphatase 74 U/L (45-117); BUN Blood Urea Nitrogen 23 mg/dL (7-18); Bicarbonate 27 mmol/L (21-32); Bilirubin Total 0.4 mg/dL (0.2-1.0); Ferritin 671.9 ng/mL (8-388); Glucose Level 294 mg/dL (74-106); Magnesium 2.5 mg/dL (1.8-2.4); Phosphorus 3.6 mg/dL (2.5-4.9); Potassium 4.2 mmol/L (3.5-5.1); Protein, Total 5.8 g/dL (6.4-8.2); Sodium Level 139 mmol/L (136-145)
[2021-04-15] MEDS ORDERED: INSULIN GLARGINE 100 UNITS/ML SQ SCH (08:00)
[2021-04-15] MEDS: ENOXAPARIN 80 MG/0.8 ML SQ SCH ×2 (08:18→20:13)
[2021-04-15] MEDS: METHYLPREDNISOLONE 40 MG INJ IV SCH ×2 (08:20→20:13)
[2021-04-15] MEDS: FAMOTIDINE 20 MG/2 ML VIAL IV SCH ×2 (08:20→20:14)
[2021-04-15] MEDS: THIAMINE HCL 100 MG TABLET PO SCH (08:21)
[2021-04-15] MEDS: BARICITINIB 2 MG TABLET PO SCH (08:21)
[2021-04-15] MEDS: ENSURE HIGH PROTEIN 237 ML CAN PO SCH (08:22)
[2021-04-15] MEDS: VITAMIN D 1000 UNIT TAB PO SCH (08:22)
[2021-04-15] MEDS: Levofloxacin 750mg IV 750 MG/150 ML BAG IV SCH (08:24)
[2021-04-15] MEDS: ASPIRIN EC 81 MG TAB PO SCH (08:45)
[2021-04-15] MEDS ORDERED: FUROSEMIDE 20 MG/ 2ML VIAL IV ONE (10:46)
--- NOTE | 2021-04-15 10:46 | P.PN ---
Subjective Date of Service: 04/15/21 Chief Complaint: Resp failure No change patient still remains very hypoxic alert responsive cooperative on TPN full code Review of Systems General: Weakness Respiratory: Shortness of Breath Physical Examination - Vital Signs Temperature: 97.4 F Blood Pressure: 126/50 Pulse: 54 Respirations: 21 Pulse Ox (%): 90 - Physical Exam General: Alert, Oriented x3, Moderate distress Assessment & Plan - Problems (Diagnosis) (1) Pneumonia due to COVID-19 virus Current Visit: Yes Status: Acute Plan: Respiratory failure still on maximum oxygen no change on maximum therapy doubt bacterial infection DC antibiotics for now trial of low-dose Lasix
[2021-04-15] MEDS: NYSTATIN 500,000 UNIT/5 ML UDC PO SCH ×2 (11:16→17:57)
[2021-04-15] MEDS: MORPHINE 2 MG/ML SYR IV PRN ×3 (11:30→20:14)
[2021-04-15] MEDS: AA 5%/D20W/ELECTROLYTES-TPN 2,000 ML, Lipids 20% 250 ML with MULTIVITAMINS INJ 10 ML IV SCH ×3 (17:00)
[2021-04-15] MEDS: DOCUSATE NA 100 MG CAP PO SCH (20:14)
[2021-04-15] MEDS: MELATONIN 5 MG TABLET PO PRN (20:14)
[2021-04-15] MEDS: GUAIFENESIN/DM 5 ML UCUP PO PRN (20:14)
[2021-04-15] MEDS: ACETAMINOPHEN 500 MG TAB PO PRN (22:18)
[2021-04-16] MEDS: NYSTATIN 500,000 UNIT/5 ML UDC PO SCH ×4 (00:05→17:22)
[2021-04-16] MEDS: INSULIN -REGULAR HUMAN 50 UNIT/0.5 ML ML SQ SCH ×4 (00:06→17:22)
[2021-04-16] MEDS: HYDROCODONE/CHLORPHEN 5 ML/OSYR PO PRN ×2 (00:06→20:36)
[2021-04-16] MEDS: MORPHINE 2 MG/ML SYR IV PRN (01:01)
[2021-04-16 05:46] LABS: BUN Blood Urea Nitrogen 25 mg/dL (7-18); Bicarbonate 30 mmol/L (21-32); Ferritin 628.3 ng/mL (8-388); Glucose Level 308 mg/dL (74-106); Magnesium 2.5 mg/dL (1.8-2.4); Phosphorus 4.2 mg/dL (2.5-4.9); Potassium 4.2 mmol/L (3.5-5.1); Sodium Level 138 mmol/L (136-145)
--- NOTE | 2021-04-16 06:05 | P.PN ---
Date of Service: 04/16/21 Subjective: Patient reports feeling better this morning, breathing more comfortably, able to come off the mask for few more seconds before becoming hypoxic. Rebounds slowly No new complaints, passing flatus, no pain Did not sleep well, patient next-door yelling overnight 90% SPO2 for most of yesterday evening and this morning Review of Systems 10-point ROS is otherwise unremarkable Physical exam GEN: AOX3 HEENT: Normal conjunctiva, sclera anicteric CV: Regular rate and rhythm, no edema Pulm: Mildly labored respirations on BIPAP, 100% FiO2 ABD: Soft, nontender, nondistended Integumentary: No rashes Neuro: Normal speech, normal affect, moves all extremities Problem List Acute hypoxemic respiratory failure secondary to COVID-19 pneumonia UTI, acute cystitis chronic CHF, unknown type HTN anxiety Continue steroid, vitamin supplementation and zinc supplementation. Completed Remdesivir. On Baracitinib. Patient did not receive for a day, she cannot tolerate coming off BiPAP mask, unfortunately Actemra is on backorder. PICC line placed 04/13, TPN started 04/13. Patient did not tolerate Dobbhoff Pulmonary is following. Urine culture: Klebsiella. Completed 5 days IV Rocephin. Patient clinically worsened, inflammatory markers worsened on 04/12, cultures were repeated, patient empirically started on Levaquin Patient noted to have a white patches in oropharynx, concern for oral candidiasis. Started IV Diflucan on 04/14, patient unable to take p.o. due to oxygen requirement. can transition to PO swish/swallow once oxygenation improves. Patient feels her oropharynx has significantly improved Patient and family initially stated DNR, after further discussion, patient decided to proceed with full code on 04/13 Follow-up chest x-ray this morning Improving, but guarded prognosis, continue ICU level of care Time Spent Managing Pts Care (In Minutes): 35
--- NOTE | 2021-04-16 07:52 | RAD REPORT ---
EXAM DESCRIPTION: Semaj Single View04/16/2021 6:24 am CLINICAL HISTORY: Hypoxia COMPARISON: April 13 FINDINGS: Mild worsening in bilateral pulmonary opacities. The possible pneumomediastinum. Heart remains enlarged IMPRESSION: Mild worsening in bilateral pulmonary opacities probably pneumonia. Possible pneumomediastinum
[2021-04-16] MEDS: INSULIN GLARGINE 100 UNITS/ML SQ SCH (08:19)
[2021-04-16] MEDS: ASPIRIN EC 81 MG TAB PO SCH (08:19)
[2021-04-16] MEDS: METHYLPREDNISOLONE 40 MG INJ IV SCH ×2 (08:19→20:33)
[2021-04-16] MEDS: FAMOTIDINE 20 MG/2 ML VIAL IV SCH ×2 (08:20→20:34)
[2021-04-16] MEDS: ENOXAPARIN 80 MG/0.8 ML SQ SCH ×2 (08:20→20:34)
[2021-04-16] MEDS: THIAMINE HCL 100 MG TABLET PO SCH (08:20)
[2021-04-16] MEDS: VITAMIN D 1000 UNIT TAB PO SCH (08:21)
[2021-04-16] MEDS: DOCUSATE NA 100 MG CAP PO SCH ×2 (08:41→20:34)
[2021-04-16] MEDS: BARICITINIB 2 MG TABLET PO SCH (09:00)
[2021-04-16] MEDS ORDERED: FUROSEMIDE 20 MG/ 2ML VIAL IV ONE (09:30)
--- NOTE | 2021-04-16 13:25 | RAD REPORT ---
EXAM DESCRIPTION: RAD - Chest Single View - 04/16/2021 1:12 pm CLINICAL HISTORY: r/o pneumo COMPARISON: Chest Single View dated 04/16/2021; Chest Single View dated 04/13/2021; Chest Single View dated 04/13/2021; Chest Single View dated 04/11/2021 FINDINGS: Pneumomediastinum again noted. Increased subcutaneous emphysema. Moderate to severe multif ocal airspace disease again identified. Right subclavian approach PICC with tip overlying the SVC. Di fficult to exclude a tiny right apical pneumothorax. No left-sided pneumothorax is seen. IMPRESSION: Possible small right apical pneumothorax. Increased subcutaneous emphysema with pneumome diastinum again noted.
--- NOTE | 2021-04-16 15:36 | RAD REPORT ---
EXAM DESCRIPTION: RAD - Chest Single View - 04/16/2021 3:23 pm CLINICAL HISTORY: f/u pneumo COMPARISON: Chest Single View dated 04/16/2021; Chest Single View dated 04/16/2021; Chest Single View dated 04/13/2021; Chest Single View dated 04/13/2021 FINDINGS: Suspect a small right apical pneumothorax which is again identified and unchanged. Right s ubclavian approach PICC with tip difficult to visualize. Subcutaneous emphysema is again noted. Pneum omediastinum is again noted. Moderate to severe bilateral airspace disease again noted. This is uncha nged. IMPRESSION: Suspected small right apical pneumothorax is unchanged. No appreciable change compared w ith 2 hours prior.
[2021-04-16] MEDS: MORPHINE 4 MG/ML SYR IV PRN ×2 (16:21→20:33)
--- NOTE | 2021-04-16 16:50 | P.PN ---
Subjective Date of Service: 04/16/21 Chief Complaint: Resp failure NC very hypoxic Small penumo R apex Review of Systems Respiratory: Shortness of Breath Physical Examination - Vital Signs Temperature: 97.2 F Blood Pressure: 128/85 Pulse: 91 Respirations: 36 Pulse Ox (%): 81 - Physical Exam General: Alert, Moderate distress Assessment & Plan - Problems (Diagnosis) (1) Pneumonia due to COVID-19 virus Current Visit: Yes Status: Acute Plan: Resp failure very hypoxic/ wants only to be intubated if unconsious. Continue to monitor pneumothorax/ SQ emphysema/ las rev cxry rev prog poor
[2021-04-16] MEDS: AA 5%/D20W/ELECTROLYTES-TPN 2,000 ML, Lipids 20% 250 ML with MULTIVITAMINS INJ 10 ML IV SCH ×3 (17:22)
--- NOTE | 2021-04-16 18:32 | CON ---
Date of Consultation: 04/16/2021 Brief History Of Present Illness: The patient is a 60-year-old female with history of CHF with eject ion fraction of 41%, hyperlipidemia, hypertension, who presents with shortness of breath, fever, and COVID positive diagnosis on 04/02/2021. She states that she had COVID positive family members, ultim ately had malaise as well, cough, shortness of breath, nausea, vomiting, diarrhea, abdominal pain and was admitted to the hospital. Reason for my consultation is that the patient had a chest x-ray whic h showed possible small apical pneumothorax. As such, I was consulted for the above-stated issue. Past Medical History: As above, hypertension, hyperlipidemia, CHF, lichen sclerosus, rectocele. Past Surgical History: Includes hysterectomy, cholecystectomy, foot surgery, and Achilles tendon rep air. Family History: Significant for heart disease, cancer. Her mother from COVID. Father fro m lung disease. Social History: She denies smoking, alcohol, or recreational drug use. She is currently on BiPAP. Her is at the bedside. Allergies: NO KNOWN DRUG ALLERGIES. Review of Systems: Ten-point review of systems other than HPI, denies. Physical Examination: General: At the time of my examination; she is awake, alert, and oriented. She is conversive, on Bi PAP, and gestures as well with thumbs up, thumbs down and hand signals. Neck: Supple without JVD. Chest: Normal expansion and excursion. Cardiovascular: Regular rate and rhythm. Pulmonary: Decreased breath sounds bilaterally, but breath sounds were evident in all lung rodriguez. Skin: Warm and dry. Laboratory Data: She had a laboratory exam, which revealed a white blood cell count of 14.7, hemoglo bin was 13.3, hematocrit 39.2, platelet count was 236. Neutrophils were 94%. Her D-dimer was 1535. Chemistry showed a sodium 138, potassium 4.2, chloride 102, carbon dioxide 30, BUN 5, creatinine 0.5 , glucose is 308. She had imaging performed, which included a chest x-ray performed on 04/16, which was officially read as possible small right apical pneumothorax, increased subcutaneous emphysema wit h pneumomediastinum again noted. She had a repeat chest x-ray performed, which was officially read a s suspected small right apical pneumothorax unchanged, no appreciable change compared to our prior. Assessment And Plan: This is a 60-year-old female, who comes in with COVID pneumonia and a possible right apical pneumothorax; however, it is difficult to definitively say if this is a pneumothorax or not. She has been on positive pressure ventilation with no significant jacket changer the past 2 hours and has been on positive pressure ventilation with BiPAP for several days. 1.I recommend serial chest x-rays. 2.Continue supportive care with treatment for COVID pneumonia. 3.Continue medical management per primary team. 4.I have explained the risks, benefits, and alternatives of placement of a chest tube to the patient and her who was at the bedside including, but not limited to bleeding, infection, damage to surrounding tissues, need for further operation and procedures, injury to the heart, great vessels, l karrie. The patient and her agreed that should she require a chest tube, they will consent to a t this time; however, I have explained that I do not have any plans to place a chest tube at this leah e as she appears stable with respect to her oxygen saturation. She is having no decompensation at th is time and her chest x-ray is stable at this point; however, if that changes, we will re-visit the c onversation. Thank you for this interesting consult. IDALIA/JOANN Voice ID: [id number] Report ID: [id number]
[2021-04-16] MEDS: MELATONIN 5 MG TABLET PO PRN (20:34)
[2021-04-16] MEDS ORDERED: LORAZEPAM 0.5 MG TABLET PO ONE (20:55)
[2021-04-16] MEDS ORDERED: LORAZEPAM 0.5 MG TABLET ONE (21:24)
--- NOTE | 2021-04-16 21:36 | RAD REPORT ---
EXAM DESCRIPTION: RAD - Chest Single View - 04/16/2021 9:18 pm CLINICAL HISTORY: revaluate apical pneumo COMPARISON: Chest Single View dated 04/16/2021; Chest Single View dated 04/16/2021; Chest Single View dated 04/16/2021; Chest Single View dated 04/13/2021 FINDINGS: Widespread bilateral airspace which is without significant interval change. Bilateral subc utaneous emphysema with small right apical pneumothorax and pneumomediastinum is similar. Cardiomegal y. Subcutaneous emphysema in the neck. Right subclavian approach PICC. IMPRESSION: No significant change from prior. Small right apical pneumothorax is unchanged.
[2021-04-17] MEDS: INSULIN -REGULAR HUMAN 50 UNIT/0.5 ML ML SQ SCH ×5 (00:50→23:33)
[2021-04-17] MEDS: NYSTATIN 500,000 UNIT/5 ML UDC PO SCH ×3 (05:07→05:53)
[2021-04-17 05:19] LABS: Absolute Lymphocytes (CBC) 0.3 K/uL (0.7-4.9); Basophils % 0.1 % (0-1.3); Hematocrit 39.3 % (36.0-45.0); Lymphocytes % 1.8 % (15.3-44.8); MPV 9.2 fL (7.6-11.3); RBC Red Blood Cell Count 4.56 M/uL (3.86-4.86)
[2021-04-17 05:43] LABS: BUN Blood Urea Nitrogen 24 mg/dL (7-18); Bicarbonate 31 mmol/L (21-32); Ferritin 768.9 ng/mL (8-388); Glucose Level 313 mg/dL (74-106); Magnesium 2.4 mg/dL (1.8-2.4); Phosphorus 3.7 mg/dL (2.5-4.9); Potassium 4.3 mmol/L (3.5-5.1); Sodium Level 138 mmol/L (136-145)
[2021-04-17] MEDS: MORPHINE 4 MG/ML SYR IV PRN (05:52)
--- NOTE | 2021-04-17 07:09 | RAD REPORT ---
EXAM DESCRIPTION: RAD - Chest Single View - 04/17/2021 5:48 am CLINICAL HISTORY: hypoxia , follow up pneumothorax COMPARISON: Chest Single View dated 04/16/2021; Chest Single View dated 04/16/2021; Chest Single View dated 04/16/2021; Chest Single View dated 04/16/2021 FINDINGS: Lines: Right subclavian approach PICC Lungs: Multifocal bilateral airspace disease is similar. Pleural: Similar small right apical pneumothorax. Cardiac: Cardiomegaly. Bones: No acute fractures. Other: Subcutaneous emphysema and pneumomediastinum is again identified. IMPRESSION: No appreciable change compared with yesterday's chest radiograph with similar small righ t apical pneumothorax, subcutaneous emphysema, pneumomediastinum, and multifocal airspace opacities.
[2021-04-17 07:43] LABS: Blood Morphology Comment NOT SEEN (NOT SEEN); Platelet Estimate ADEQ
[2021-04-17] MEDS: FUROSEMIDE 20 MG/ 2ML VIAL IV SCH (07:57)
[2021-04-17] MEDS: METHYLPREDNISOLONE 40 MG INJ IV SCH (07:57)
[2021-04-17] MEDS: BARICITINIB 2 MG TABLET PO SCH (07:57)
[2021-04-17] MEDS: FAMOTIDINE 20 MG/2 ML VIAL IV SCH ×2 (07:57→19:55)
[2021-04-17] MEDS: ENOXAPARIN 80 MG/0.8 ML SQ SCH ×2 (07:57→19:55)
[2021-04-17] MEDS: INSULIN GLARGINE 100 UNITS/ML SQ SCH (08:05)
[2021-04-17] MEDS: VITAMIN D 1000 UNIT TAB PO SCH (09:00)
[2021-04-17] MEDS: ASPIRIN EC 81 MG TAB PO SCH (09:00)
[2021-04-17] MEDS: THIAMINE HCL 100 MG TABLET PO SCH (09:00)
[2021-04-17] MEDS: DOCUSATE NA 100 MG CAP PO SCH ×3 (09:00→20:56)
--- NOTE | 2021-04-17 11:33 | P.PN ---
Subjective Date of Service: 04/17/21 Chief Complaint: Resp failure NC very hypoxic Small penumo R apex stable Review of Systems Respiratory: Shortness of Breath Physical Examination - Vital Signs Temperature: 97.6 F Blood Pressure: 141/69 Pulse: 82 Respirations: 34 Pulse Ox (%): 87 - Physical Exam General: Alert, Cooperative, Moderate distress Assessment & Plan - Problems (Diagnosis) (1) Pneumonia due to COVID-19 virus Current Visit: Yes Status: Acute Plan: Resp failure NC pneumo no change/ Change to PO diflucan/ labs reviewed
--- NOTE | 2021-04-17 13:05 | P.PN ---
Subjective Date of Service: 04/17/21 Chief Complaint: Resp failure No no major changes. Patient is on BiPAP. Chest x-rays today shows no change in pneumothorax and pneumomediastinum. Physical Examination - Vital Signs Temperature: 97.6 F Blood Pressure: 141/69 Pulse: 82 Respirations: 34 Pulse Ox (%): 87 - Physical Exam General: Alert, Mild distress HEENT: Other (BiPAP) Neck: JVD not distended Respiratory: Other (Mildly labored breathing) Cardiovascular: Normal pulses, Regular rate/rhythm, Normal S1 S2 Gastrointestinal: Soft and benign, Non-distended Musculoskeletal: No swelling Integumentary: No rashes, No erythema Neurological: Normal strength at 5/5 x4 extr Assessment And Plan - Current Problems (Diagnosis) (1) CHF (congestive heart failure) Current Visit: Yes Status: Acute Qualifiers: Heart failure type: unspecified Heart failure chronicity: chronic Qualified Code(s): I50.9 - Heart failure, unspecified (2) Pneumonia due to COVID-19 virus Current Visit: Yes Status: Acute (3) HTN (hypertension) Current Visit: Yes Status: Chronic Qualifiers: Hypertension type: primary hypertension Qualified Code(s): I10 - Essential (primary) hypertension (4) UTI (urinary tract infection) Current Visit: Yes Status: Acute Physician Review Additional Text: Problem List acute hypoxemic respiratory failure secondary to COVID-19 pneumonia UTI, acute cystitis chronic CHF, unknown type HTN anxiety Pneumomediastinum Subcutaneous emphysema Pneumothorax. Continue steroid, vitamin supplementation and zinc supplementation. Completed Remdesivir. On Baracitinib. PICC line in. TPN started 04/13. Pulmonary is following. Urine culture: Klebsiella. Completed 5 days IV Rocephin. Patient clinically worsened. Off Levaquin Patient noted to have a white patches in oropharynx, concern for oral cand idiasis. On IV Diflucan on 04/14. Patient unable to tolerate p.o. She has declined intubation at this time. She want to be intubated only in emergency situations were all measures have failed. Serial chest x-ray shows no change in apical pneumothorax and pneumomediastinum. On BiPAP. Serial chest x-ray. Full code guarded prognosis, continue ICU level of care.
--- NOTE | 2021-04-17 13:15 | P.PN ---
Subjective Date of Service: 04/17/21 Chief Complaint: Resp failure Subjective: No new changes (Patient has no new changes, remains on BIPAP) Physical Examination - Vital Signs Temperature: 97.6 F Blood Pressure: 141/69 Pulse: 82 Respirations: 34 Pulse Ox (%): 87 - Physical Exam General: Alert, Cooperative Respiratory: Diminished Assessment And Plan - Current Problems (Diagnosis) (1) Pneumonia due to COVID-19 virus Current Visit: Yes Status: Acute Plan: - follow up chest xray is essentially unchanged, no expansion of pneumthorax if present - continue daily chest x-rays - continue medical management Physician Review Additional Text: Problem List acute hypoxemic respiratory failure secondary to COVID-19 pneumonia UTI, acute cystitis chronic CHF, unknown type HTN anxiety Pneumomediastinum Subcutaneous emphysema Pneumothorax. Continue steroid, vitamin supplementation and zinc supplementation. Completed Remdesivir. On Baracitinib. PICC line in. TPN started 04/13. Pulmonary is following. Urine culture: Klebsiella. Completed 5 days IV Rocephin. Patient clinically worsened. Off Levaquin Patient noted to have a white patches in oropharynx, concern for oral candidiasis. On IV Diflucan on 04/14. Patient unable to tolerate p.o. She has declined intubation at this time. She want to be intubated only in emergency situations were all measures have failed. Serial chest x-ray shows no change in apical pneumothorax and pneumomediastinum. On BiPAP. Serial chest x-ray. Full code guarded prognosis, continue ICU level of care.
[2021-04-17] MEDS: AA 5%/D20W/ELECTROLYTES-TPN 2,000 ML, Lipids 20% 250 ML with MULTIVITAMINS INJ 10 ML IV SCH ×3 (17:44)
[2021-04-17] MEDS: MORPHINE 2 MG/ML SYR IV PRN ×2 (19:55→23:59)
[2021-04-17] MEDS: MELATONIN 5 MG TABLET PO PRN (19:56)
[2021-04-17] MEDS: HYDROCODONE/CHLORPHEN 5 ML/OSYR PO PRN (19:57)
[2021-04-17] MEDS: D5 0.45 NS 1,000 ML IV SCH (20:56)
[2021-04-17] MEDS ORDERED: D5 0.45 NS 1,000 ML IV ONE (21:18)
[2021-04-17] MEDS ORDERED: LORAZEPAM 0.5 MG TABLET PO ONE (23:30)
[2021-04-17] MEDS ORDERED: LORAZEPAM 0.5 MG TABLET ONE (23:58)
[2021-04-18] MEDS: MELATONIN 5 MG TABLET PO PRN
[2021-04-18] MEDS: HYDROCODONE/CHLORPHEN 5 ML/OSYR PO PRN (00:01)
[2021-04-18 05:01] LABS: Absolute Lymphocytes (CBC) 0.6 K/uL (0.7-4.9); Basophils % 0.1 % (0-1.3); Hematocrit 41.4 % (36.0-45.0); Lymphocytes % 3.7 % (15.3-44.8); MPV 9.1 fL (7.6-11.3); RBC Red Blood Cell Count 4.81 M/uL (3.86-4.86)
[2021-04-18] MEDS ORDERED: propofoL 1,000 MG/100 ML VIAL IV PRN (05:32)
[2021-04-18] MEDS ORDERED: HALOPERIDOL LACT 5 MG/ML INJ IV PRN (05:32)
[2021-04-18 05:36] LABS: BUN Blood Urea Nitrogen 28 mg/dL (7-18); Bicarbonate 30 mmol/L (21-32); Ferritin 1227.7 ng/mL (8-388); Glucose Level 130 mg/dL (74-106); Magnesium 2.2 mg/dL (1.8-2.4); Phosphorus 3.7 mg/dL (2.5-4.9); Sodium Level 139 mmol/L (136-145)
[2021-04-18] MEDS ORDERED: RSI MEDICATION KIT IV ONE (05:37)
[2021-04-18] MEDS ORDERED: propofoL 500 MG/50 ML ML IV ONE ×3 (05:47→08:32)
[2021-04-18] MEDS ORDERED: NA CHLORIDE 0.9% 1,000 ML ONE (05:47)
[2021-04-18] MEDS ORDERED: ETOMIDATE 20 MG/10 ML VIAL IV ONE ×2 (05:55→17:06)
[2021-04-18] MEDS: INSULIN -REGULAR HUMAN 50 UNIT/0.5 ML ML SQ SCH ×3 (06:00→17:31)
[2021-04-18] MEDS ORDERED: FENTANYL CITR 100 MCG/2 ML ONE (06:08)
[2021-04-18] MEDS ORDERED: MIDAZOLAM HCL 2 MG/2 ML INJ ONE (06:09)
[2021-04-18] MEDS: MIDAZOLAM HCL 2 MG/2 ML INJ IV PRN ×2 (06:10→10:00)
[2021-04-18] MEDS: FENTANYL CITR 100 MCG/2 ML IV PRN ×3 (06:10→20:38)
[2021-04-18] MEDS: LORazepam 2 MG/ML VIAL IV PRN ×2 (06:20→08:24)
[2021-04-18 06:57] LABS: Arterial Blood Carboxyhemoglob 0.9 % (0-1.5); Blood Gas Oxyhemoglobin 89.6 % (94-97); Blood O2 Saturation 91.4 % (92-98.5)
[2021-04-18] MEDS: DOCUSATE NA 100 MG CAP PO SCH ×3 (07:46→20:04)
[2021-04-18] MEDS: ASPIRIN EC 81 MG TAB PO SCH (07:46)
[2021-04-18] MEDS: FUROSEMIDE 20 MG/ 2ML VIAL IV SCH (07:46)
[2021-04-18] MEDS: INSULIN GLARGINE 100 UNITS/ML SQ SCH (07:46)
--- NOTE | 2021-04-18 08:14 | P.PN ---
Subjective Date of Service: 04/18/21 Chief Complaint: Resp failure Subjective: Worsening (Patient was intubated yesterday.) Physical Examination - Vital Signs Temperature: 97 F Blood Pressure: 88/62 Pulse: 132 Respirations: 32 Pulse Ox (%): 89 - Physical Exam General: Mild distress Respiratory: Diminished Assessment And Plan - Current Problems (Diagnosis) (1) Pneumonia due to COVID-19 virus Current Visit: Yes Status: Acute Plan: - chest x ray appears to be worsening with more atelectasis, inflammatory changes, worse opacification, no visible pneumothorax, not read by radiologist @ this point. - continue daily chest x-rays - continue medical management Physician Review Additional Text: Problem List acute hypoxemic respiratory failure secondary to COVID-19 pneumonia UTI, acute cystitis chronic CHF, unknown type HTN anxiety Pneumomediastinum Subcutaneous emphysema Pneumothorax. Continue steroid, vitamin supplementation and zinc supplementation. Completed Remdesivir. On Baracitinib. PICC line in. TPN started 04/13. Pulmonary is following. Urine culture: Klebsiella. Completed 5 days IV Rocephin. Patient clinically worsened. Off Levaquin Patient noted to have a white patches in oropharynx, concern for oral candidiasis. On IV Diflucan on 04/14. Patient unable to tolerate p.o. She has declined intubation at this time. She want to be intubated only in emergency situations were all measures have failed. Serial chest x-ray shows no change in apical pneumothorax and pneumomediastinum. On BiPAP. Serial chest x-ray. Full code guarded prognosis, continue ICU level of care.
[2021-04-18] MEDS ORDERED: CISATRACURIUM INJECTION 2 MG/ML (10 ML Vial) IV PRN (08:19)
[2021-04-18] MEDS: ENOXAPARIN 80 MG/0.8 ML SQ SCH ×2 (08:26→20:04)
[2021-04-18] MEDS: BARICITINIB 2 MG TABLET PO SCH (08:26)
--- NOTE | 2021-04-18 08:26 | P.PN ---
Subjective Date of Service: 04/18/21 Chief Complaint: Resp failure PT intubated yesterday Review of Systems is unable to be obtained Physical Examination - Vital Signs Temperature: 97 F Blood Pressure: 88/62 Pulse: 132 Respirations: 32 Pulse Ox (%): 89 - Physical Exam General: Unresponsive Assessment & Plan - Problems (Diagnosis) (1) Pneumonia due to COVID-19 virus Current Visit: Yes Status: Acute Plan: Resp failure pt now intubated, CXRY severe COVID , Low BP, prognosis poor. CXRY rev. ramya wean off TPN resume solumederol and add cefepime
[2021-04-18] MEDS: FAMOTIDINE 20 MG/2 ML VIAL IV SCH ×2 (08:27→20:04)
[2021-04-18] MEDS: FLUCONAZOLE 100 MG TAB PO SCH (08:27)
[2021-04-18] MEDS: THIAMINE HCL 100 MG TABLET PO SCH (08:27)
[2021-04-18] MEDS: VITAMIN D 1000 UNIT TAB PO SCH (08:27)
[2021-04-18] MEDS ORDERED: CISATRACURIUM INJECTION 2 MG/ML (10 ML Vial) IV ONE (08:40)
[2021-04-18] MEDS ORDERED: METOPROLOL TARTRATE 5 MG/5 ML INJ IV STA (08:49)
--- NOTE | 2021-04-18 08:55 | RAD REPORT ---
EXAM DESCRIPTION: RAD - Chest Single View - 04/18/2021 6:03 am CLINICAL HISTORY: INTUBATION COMPARISON: April 17 TECHNIQUE: AP portable chest image was obtained 04/18/2021 6:03 am . FINDINGS: Image was resubmitted for interpretation due to technical issues. Endotracheal tube has been placed. Tip is mid aortic arch level 3 cm above the ratna. Patient is sig nificantly rotated. Significant worsening of airspace opacification noted since the prior day examina tion. Subcutaneous emphysema is not clearly different. No new or enlarging pneumothorax identified. NG tube extends below the diaphragm, off the field of view. Heart size is prominent but stable. Vascu lature is obscured by the airspace disease. No an enlarging pleural effusion. No acute bony abnormality seen. No acute aortic findings suspected . IMPRESSION: Significant worsening of the bilateral COVID pneumonia findings since April 17. Endotracheal tube placement with tip mid aortic arch level, 3 cm above the ratna. No pneumothorax seen. Subcutaneous emphysema is stable.
[2021-04-18] MEDS ORDERED: AMIODARONE HCL 900 MG in Dextrose 5%-Water 482 ML IV SCH (09:00)
[2021-04-18] MEDS ORDERED: CEFEPIME 1 GM/VIAL IV SCH (09:00)
[2021-04-18] MEDS ORDERED: METOPROLOL TARTRATE 5 MG/5 ML INJ IV ONE (09:08)
--- NOTE | 2021-04-18 09:12 | RAD REPORT ---
EXAM DESCRIPTION: RAD - Chest Single View - 04/18/2021 9:03 am CLINICAL HISTORY: S/P Code, intubation COMPARISON: April 18 TECHNIQUE: AP portable chest image was obtained 04/18/2021 9:03 am . FINDINGS: Endotracheal tube remains well-positioned with the tip mid aortic arch level 3 cm above th e ratna. NG tube extends well below the diaphragm. Subcutaneous emphysema is still present. No pneumothorax has developed. Trachea is midline. Bilateral airspace opacification is present. Pattern is not substantially different from same day comparison. Left base opacification obscures the heart border and hemidiaphragm. This could be progressive infilt rate, developing pleural effusion or a combination. IMPRESSION: ET tube remains well-positioned mid aortic arch level 3 cm above the ratna. No pneumothorax has developed. [id number] airspace opacification similar to the same day comparison. Pleural fluid comp onent at the left base is not excluded.
[2021-04-18] MEDS: D5 0.45 NS 1,000 ML IV SCH (10:13)
[2021-04-18] MEDS: CEFEPIME 1 GM/100 ML BAG IV SCH ×2 (10:13→20:06)
[2021-04-18] MEDS ORDERED: CISATRACURIUM BESYLATE 40 MG in NA CHLORIDE 0.9% 80 ML IV PRN (10:32)
[2021-04-18] MEDS: METHYLPREDNISOLONE 125 MG INJ IV SCH ×2 (11:11→20:04)
[2021-04-18] MEDS: propofoL 500 MG/50 ML ML IV PRN ×4 (11:59→22:13)
[2021-04-18 12:07] LABS: Absolute Lymphocytes (CBC) 1.1 K/uL (0.7-4.9); Basophils % 0.2 % (0-1.3); Hematocrit 43.1 % (36.0-45.0); MPV 9.4 fL (7.6-11.3); RBC Red Blood Cell Count 4.92 M/uL (3.86-4.86)
[2021-04-18 12:28] LABS: ALT/SGPT 157 U/L (12-78); AST/SGOT 154 U/L (15-37); Albumin 2.2 g/dL (3.4-5.0); Alkaline Phosphatase 132 U/L (45-117); BUN Blood Urea Nitrogen 30 mg/dL (7-18); Bicarbonate 29 mmol/L (21-32); Bilirubin Total 1.3 mg/dL (0.2-1.0); Glucose Level 293 mg/dL (74-106); Potassium 4.5 mmol/L (3.5-5.1); Protein, Total 6.1 g/dL (6.4-8.2); Sodium Level 135 mmol/L (136-145)
[2021-04-18 12:56] LABS: Arterial Blood Carboxyhemoglob 1.1 % (0-1.5); Blood Gas Oxyhemoglobin 82.6 % (94-97); Blood O2 Saturation 84.1 % (92-98.5)
[2021-04-18 13:59] LABS: Blood Morphology Comment NOT SEEN (NOT SEEN); Platelet Estimate ADEQ
--- NOTE | 2021-04-18 14:34 | CON ---
History Of Present Illness: Admitted for COVID pneumonia and has been in the hospital for many days, intubated, poor prognosis, O2 saturation 77% on mechanical ventilation. Has a history of chronic sy stolic congestive heart failure with normal coronaries as of a catheterization this year. She is on amiodarone. She is on aspirin. She is on Diprivan. She is on Lovenox, Lasix, insulin, antibiotics, steroids, and metoprolol. Apparently went into SVT and atrial fibrillation, and I was consulted. E chocardiogram is pending. She had what appeared to be a right apical pneumothorax as well that has b een followed by Dr. Benavides. She has a history of hypertension I believe and hyperlipidemia and a hi story of rectocele. Allergies: NONE. Review of Systems: Not obtainable. Social History: Not obtainable. Family History: Not obtainable. Medications: Listed earlier. Physical Examination: Today; blood pressure is 140/70, pulse is 143, respiratory rate is 43, O2 saturation 97% on mechanica l ventilation. Laboratory Data: Last creatinine of 0.58. Last white count of 16,000. Has elevated ferritin and C- reactive protein, glucose, all consistent with COVID pneumonia. Impression And Plan: The patient with very poor prognosis, COVID pneumonia, chronic systolic congest ame heart failure, hypertension, dyslipidemia, hypoxia, poor oxygen saturation on mechanical ventilat ion. She is really expected to have arrhythmia, supraventricular tachycardia or atrial fibrillation. She was normotensive and she certainly cannot afford the metoprolol as well as amiodarone. She cou ld certainly get some digoxin 0.25 IV daily to help with rate control. I will continue the amiodaron e, continue metoprolol, give digoxin as needed, continue the rest of the medications. Obtain a 2D ec hocardiogram and we will follow as needed. VU/JOANN Voice ID: [id number] Report ID: [id number]
--- NOTE | 2021-04-18 16:25 | P.PN ---
Subjective Date of Service: 04/18/21 Chief Complaint: Resp failure Patient developed acute respiratory distress overnight. She reported being exhausted. She developed a rate with ventricular rate up to 220 suspected to be rapid AFib. Patient was intubated. Post intubation chest x-ray shows no pneumothorax. Low SaO2 on 100% FiO2. Patient started on amiodarone drip for rapid AFib. Physical Examination - Vital Signs Temperature: 97 F Blood Pressure: 106/71 Pulse: 121 Respirations: 30 Pulse Ox (%): 84 - Physical Exam General: Other (Sedated) HEENT: Other (Intubated) Neck: JVD not distended Respiratory: Other (Bilateral upper airway transmitted sounds.) Cardiovascular: Normal S1 S2, Irregular heart rate/rhythm Gastrointestinal: Soft and benign, Non-distended Musculoskeletal: No swelling Integumentary: No rashes Neurological: Other (Sedated) Assessment And Plan - Current Problems (Diagnosis) (1) CHF (congestive heart failure) Current Visit: Yes Status: Acute Qualifiers: Heart failure type: unspecified Heart failure chronicity: chronic Qualified Code(s): I50.9 - Heart failure, unspecified (2) Pneumonia due to COVID-19 virus Current Visit: Yes Status: Acute (3) HTN (hypertension) Current Visit: Yes Status: Chronic Qualifiers: Hypertension type: primary hypertension Qualified Code(s): I10 - Essential (primary) hypertension (4) UTI (urinary tract infection) Current Visit: Yes Status: Acute - Plan Patient refusing fingerstick glucose monitoring. Morning blood sugar is moderately elevated. Will continue to monitor and start low dose insulin as needed for steroid induced hyperglycemia. Prognosis guarded. Physician Review Additional Text: Problem List acute hypoxemic respiratory failure secondary to COVID-19 pneumonia UTI, acute cystitis chronic CHF, unknown type HTN anxiety Pneumomediastinum Subcutaneous emphysema Pneumothorax. Continue mechanical intubation. Pulmonary is following. Urine culture grew Klebsiella. Patient completed IV Rocephin. She is currently on IV cefepime for possible secondary bacterial pneumonia. Continue steroid, vitamin supplementation and zinc supplementation. Completed Remdesivir. Off Baracitinib. PICC line in. TPN started 04/13. Status post Levaquin Patient noted to have a white patches in oropharynx, concern for oral candidiasis. On IV Diflucan on 04/14. Patient unable to tolerate p.o. Serial chest x-ray shows no change in apical pneumothorax and pneumomediastinum. Full code guarded prognosis, continue ICU level of care.
[2021-04-18] MEDS ORDERED: SUCCINYLCHOLINE 20 MG/ML (10 ML) IV ONE (17:06)
[2021-04-18] MEDS: NA CHLORIDE 0.9% IV PRN (18:07)
[2021-04-18] MEDS: CISATRACURIUM BESYLATE IV PRN (18:07)
--- NOTE | 2021-04-19 00:18 | RAD REPORT ---
EXAM DESCRIPTION: RAD - Chest Single View - 04/19/2021 12:09 am CLINICAL HISTORY: decreased breath sounds on right side Chest pain. COMPARISON: Chest Single View dated 04/18/2021; Chest Single View dated 04/18/2021; Chest Single View dated 04/17/2021; Chest Single View dated 04/16/2021 FINDINGS: Portable technique limits examination quality. Tip of the endotracheal tube is at the level of the aortic arch, appropriate placement. Enteric tube descends into the stomach. There has been [id number] increase in the amount of subcutaneous emp hysema particularly on the right. Bilateral pulmonary opacities appear similar to earlier examination from earlier today.The heart is upper limit of normal in size.
[2021-04-19] MEDS: propofoL 500 MG/50 ML ML IV PRN ×12 (00:22→22:28)
[2021-04-19] MEDS: FENTANYL CITR 100 MCG/2 ML IV PRN ×5 (00:43→23:25)
[2021-04-19] MEDS ORDERED: AMIODARONE IN DEXTROSE,ISO-OSM 360 MG/200 ML BAG IV ONE (00:56)
[2021-04-19] MEDS: MORPHINE 2 MG/ML SYR IV PRN (02:22)
[2021-04-19 05:22] LABS: Absolute Lymphocytes (CBC) 0.2 K/uL (0.7-4.9); Basophils % 0.3 % (0-1.3); Hematocrit 42.1 % (36.0-45.0); Lymphocytes % 3.5 % (15.3-44.8); MPV 9.3 fL (7.6-11.3); RBC Red Blood Cell Count 4.79 M/uL (3.86-4.86)
[2021-04-19] MEDS: INSULIN -REGULAR HUMAN 50 UNIT/0.5 ML ML SQ SCH ×5 (05:32→23:47)
[2021-04-19 05:49] LABS: Blood Gas Oxyhemoglobin 89.1 % (94-97); Blood O2 Saturation 90.8 % (92-98.5)
[2021-04-19 05:50] LABS: BUN Blood Urea Nitrogen 18 mg/dL (7-18); Bicarbonate 30 mmol/L (21-32); Glucose Level 308 mg/dL (74-106); Potassium 4.2 mmol/L (3.5-5.1); Sodium Level 139 mmol/L (136-145)
--- NOTE | 2021-04-19 08:42 | RAD REPORT ---
EXAM DESCRIPTION: RAD - Chest Single View - 04/19/2021 6:19 am CLINICAL HISTORY: covid Chest pain. COMPARISON: Chest Single View dated 04/18/2021; Chest Single View dated 04/18/2021; Chest Single View dated 04/18/2021; Chest Single View dated 04/17/2021 FINDINGS: Portable technique limits examination quality. Tip of the endotracheal tube is about 1 cm above the level of the superior aortic arch. Enteric tube descends into the stomach. Extensive bilateral pulmonary opacities show no real change since prior st udy. The heart is mildly prominent in size.Subcutaneous emphysema shows no significant change. ICU nurse Karla was notified at the time of dictation.
[2021-04-19] MEDS ORDERED: dilTIAZem HCL 25 MG/5 ML VIAL IV ONE ×2 (08:44→09:10)
[2021-04-19] MEDS ORDERED: METOPROLOL TARTRATE 5 MG/5 ML INJ IV STA (09:09)
[2021-04-19] MEDS: METOPROLOL TAR 50 MG TAB PO SCH ×2 (09:22→20:00)
[2021-04-19] MEDS ORDERED: METOPROLOL TARTRATE 5 MG/5 ML INJ IV ONE (09:36)
[2021-04-19] MEDS: THIAMINE HCL 100 MG TABLET PO SCH (09:39)
[2021-04-19] MEDS: ASPIRIN EC 81 MG TAB PO SCH (09:39)
[2021-04-19] MEDS: FAMOTIDINE 20 MG/2 ML VIAL IV SCH ×2 (09:39→20:00)
[2021-04-19] MEDS: DOCUSATE NA 100 MG CAP PO SCH ×2 (09:40→20:01)
[2021-04-19] MEDS: INSULIN GLARGINE 100 UNITS/ML SQ SCH (09:40)
[2021-04-19] MEDS: FLUCONAZOLE 100 MG TAB PO SCH (09:40)
[2021-04-19] MEDS: APIXABAN 5 MG TABLET PO SCH ×2 (09:40→20:00)
[2021-04-19] MEDS: VITAMIN D 1000 UNIT TAB PO SCH (09:40)
[2021-04-19] MEDS: FUROSEMIDE 20 MG/ 2ML VIAL IV SCH (09:40)
[2021-04-19] MEDS: METHYLPREDNISOLONE 125 MG INJ IV SCH ×2 (09:42→20:00)
[2021-04-19] MEDS: CEFEPIME 1 GM/100 ML BAG IV SCH ×2 (09:43→20:01)
[2021-04-19] MEDS: AMIODARONE HCL 900 MG in Dextrose 5%-Water 482 ML IV SCH (09:44)
--- NOTE | 2021-04-19 12:22 | P.PN ---
Subjective Date of Service: 04/19/21 Chief Complaint: Resp failure Not doing well she developed A. fib this morning still on maximum support Review of Systems is unable to be obtained Physical Examination - Vital Signs Temperature: 97.4 F Blood Pressure: 125/70 Pulse: 107 Respirations: 22 Pulse Ox (%): 89 - Physical Exam General: Unresponsive Assessment & Plan - Problems (Diagnosis) (1) Pneumonia due to COVID-19 virus Current Visit: Yes Status: Acute Plan: Respiratory failure maximum support on paralytic drugs patient is on tube feeds White count is now normal patient is hypoxic hypercapnic vital signs stable labs and medication list reviewed prognosis poor start patient on Barcitinib reduced dose of steroids hyperglycemia
--- NOTE | 2021-04-19 14:25 | P.PN ---
Subjective Date of Service: 04/19/21 Chief Complaint: Resp failure No issues overnight. Patient saturating in the 80s on mechanical ventilation and 100% FiO2. Physical Examination - Vital Signs Temperature: 97.4 F Blood Pressure: 125/70 Pulse: 107 Respirations: 22 Pulse Ox (%): 89 - Physical Exam General: Other (Intubated and sedated) HEENT: Other (ET and NGT) Respiratory: Other (Bilateral upper airway transmitted sounds) Cardiovascular: No edema, Normal S1 S2, Other (Tachycardia) Gastrointestinal: Normal bowel sounds, Soft and benign, Non-distended, No tenderness Musculoskeletal: No swelling, No tenderness Integumentary: No rashes Neurological: Other (Sedated) Assessment And Plan - Current Problems (Diagnosis) (1) CHF (congestive heart failure) Current Visit: Yes Status: Acute Qualifiers: Heart failure type: unspecified Heart failure chronicity: chronic Qualified Code(s): I50.9 - Heart failure, unspecified (2) Pneumonia due to COVID-19 virus Current Visit: Yes Status: Acute (3) HTN (hypertension) Current Visit: Yes Status: Chronic Qualifiers: Hypertension type: primary hypertension Qualified Code(s): I10 - Essential (primary) hypertension (4) UTI (urinary tract infection) Current Visit: Yes Status: Acute Physician Review Additional Text: Problem List acute hypoxemic respiratory failure secondary to COVID-19 pneumonia UTI, acute cystitis chronic CHF, unknown type HTN anxiety Pneumomediastinum Subcutaneous emphysema Pneumothorax. Continue mechanical intubation. Pulmonary is following. Urine culture grew Klebsiella. Patient completed IV Rocephin. She is currently on IV cefepime for possible secondary bacterial pneumonia. Continue steroid, vitamin supplementation and zinc supplementation. Completed Remdesivir. Baricitinib therapy PICC line in. TPN started 04/13. Status post Levaquin Continue Diflucan for oral candidiasis Serial chest x-ray shows no change in apical pneumothorax and pneumomediastinum. Followup chest x-rays. Metoprolol 50 mg b.i.d. for atrial fibrillation. Continue amiodarone drip. Eliquis for anticoagulation. Full code guarded prognosis, continue ICU level of care.
[2021-04-19] MEDS: NA CHLORIDE 0.9% IV PRN (14:43)
[2021-04-19] MEDS: CISATRACURIUM BESYLATE IV PRN (14:43)
[2021-04-19] MEDS: BARICITINIB 2 MG TABLET PO SCH (15:56)
[2021-04-19] MEDS: VITAL HP 1,000 ML BOT RTH SCH (17:21)
[2021-04-19] MEDS ORDERED: AMIODARONE HCL 150 MG/3 ML INJ IV ONE (18:05)
[2021-04-20] MEDS: propofoL 500 MG/50 ML ML IV PRN ×12 (00:25→23:49)
[2021-04-20] MEDS: HYDRALAZINE HCL 20 MG/ML VIAL IV PRN ×2 (02:36→22:07)
[2021-04-20] MEDS ORDERED: METOPROLOL TARTRATE 5 MG/5 ML INJ IV STA ×3 (02:50→03:26)
[2021-04-20] MEDS ORDERED: METOPROLOL TARTRATE 5 MG/5 ML INJ IV ONE (03:18)
[2021-04-20] MEDS: METOPROLOL TAR 50 MG TAB PO SCH ×3 (04:28→20:05)
[2021-04-20 05:45] LABS: Absolute Lymphocytes (CBC) 0.3 K/uL (0.7-4.9); Basophils % 0.5 % (0-1.3); Hematocrit 40.5 % (36.0-45.0); Lymphocytes % 4.1 % (15.3-44.8); MPV 9.7 fL (7.6-11.3); RBC Red Blood Cell Count 4.56 M/uL (3.86-4.86)
[2021-04-20] MEDS: INSULIN -REGULAR HUMAN 50 UNIT/0.5 ML ML SQ SCH ×4 (05:50→23:55)
[2021-04-20 05:56] LABS: BUN Blood Urea Nitrogen 31 mg/dL (7-18); Bicarbonate 37 mmol/L (21-32); Magnesium 2.5 mg/dL (1.8-2.4); Phosphorus 3.1 mg/dL (2.5-4.9); Potassium 4.9 mmol/L (3.5-5.1); Sodium Level 139 mmol/L (136-145)
[2021-04-20 06:26] LABS: Glucose Level 458 mg/dL (74-106)
[2021-04-20] MEDS: AMIODARONE HCL 900 MG in Dextrose 5%-Water 482 ML IV SCH (07:57)
[2021-04-20] MEDS: VITAMIN D 1000 UNIT TAB PO SCH (08:03)
[2021-04-20] MEDS: INSULIN GLARGINE 100 UNITS/ML SQ SCH (08:03)
[2021-04-20] MEDS: METHYLPREDNISOLONE 125 MG INJ IV SCH ×2 (08:03→20:03)
[2021-04-20] MEDS: FAMOTIDINE 20 MG/2 ML VIAL IV SCH ×2 (08:04→20:04)
[2021-04-20] MEDS: FUROSEMIDE 20 MG/ 2ML VIAL IV SCH (08:04)
[2021-04-20] MEDS: THIAMINE HCL 100 MG TABLET PO SCH (08:04)
[2021-04-20] MEDS: DOCUSATE NA 100 MG CAP PO SCH ×2 (08:04→20:04)
[2021-04-20] MEDS: APIXABAN 5 MG TABLET PO SCH ×2 (08:04→20:04)
[2021-04-20] MEDS: FLUCONAZOLE 100 MG TAB PO SCH (08:05)
[2021-04-20] MEDS: BARICITINIB 2 MG TABLET PO SCH (08:06)
--- NOTE | 2021-04-20 08:23 | ECHO ---
HEIGHT: 5 ft 4 in WEIGHT: 198 lb 6.657 oz DATE OF STUDY: 04/19/[address]: Zuleyka Chung MD 2-DIMENSIONAL: YES M.MODE: YES DOPPLER: YES COLOR FLOW: YES TDS: YES PORTABLE: YES DEFINITY: NO BUBBLE STUDY: NO DIAGNOSIS: ATRIAL FIBRILLATION CARDIAC HISTORY: CATHERIZATION: NO SURGERY: NO PROSTHETIC VALVE: NO PACEMAKER: NO MEASUREMENTS (cm) DIASTOLIC (NORMALS) SYSTOLIC (NORMALS) IVSd 1.0 (0.6-1.2) LA Diam 2.9 (1.9-4.0) LVEF 40-45% LVIDd 4.4 (3.5-5.7) LVIDs 3.9 (2.0-3.5) %FS 13% LVPWd 1.1 (0.6-1.2) Ao Diam 3.0 (2.0-3.7) 2 DIMENSIONAL ASSESSMENT: RIGHT ATRIUM: NORMAL LEFT ATRIUM: NORMAL RIGHT VENTRICLE: NORMAL LEFT VENTRICLE: TRICUSPID VALVE: MITRAL VALVE: NORMAL PULMONIC VALVE: AORTIC VALVE: NORMAL PERICARDIAL EFFUSION: NONE AORTIC ROOT: NORMAL LEFT VENTRICULAR WALL MOTION: SEE BELOW DOPPLER/COLOR FLOW: SEE BELOW COMMENTS: LEFT VENTRICULAR EJECTION FRACTION APPEARS MILDLY DEPRESSED AT 40-45% WITH MILD GLOBAL HYPOKINESIS. ATRIALL FIBRILLATION. MILD TRICUSPID AND PULMONARY REGURGITATION. 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
[2021-04-20] MEDS: CEFEPIME 1 GM/100 ML BAG IV SCH ×2 (08:49→20:03)
[2021-04-20] MEDS: CISATRACURIUM BESYLATE IV PRN (10:14)
[2021-04-20] MEDS: NA CHLORIDE 0.9% IV PRN (10:14)
--- NOTE | 2021-04-20 10:19 | RAD REPORT ---
EXAM DESCRIPTION: RAD - Chest Single View - 04/20/2021 10:05 am CLINICAL HISTORY: Respiratory Failure, R/O Pneumothorax Chest pain. COMPARISON: Chest Single View dated 04/19/2021; Chest Single View dated 04/18/2021; Chest Single View dated 04/18/2021; Chest Single View dated 04/18/2021 FINDINGS: Portable technique limits examination quality. Extensive bilateral pulmonary opacities are again noted showing slight improvement on the left since yesterday's examination. Tip of the endotracheal tube is at the level of the superior aortic arch. En teric tube descends into the upper abdomen. There is extensive subcutaneous emphysema present, unchan ged.The heart is mildly enlarged in size. IMPRESSION: Subtle improvement in left lung aeration is seen since yesterday's study.
--- NOTE | 2021-04-20 12:24 | P.PN ---
Subjective Date of Service: 04/20/21 Chief Complaint: Resp failure Patient is back in atrial fibrillation with heart rate in the 120s. Oxygen saturation is better today. No issues overnight. Physical Examination - Vital Signs Temperature: 98.3 F Blood Pressure: 143/75 Pulse: 81 Respirations: 22 Pulse Ox (%): 92 - Physical Exam General: Other (Sedated) HEENT: Other (ET and NG-tube) Respiratory: Other (Bilateral upper airway transmitted sounds) Cardiovascular: Edema (Bilateral lower extremity), Irregular heart rate/rhythm Gastrointestinal: Soft and benign, Non-distended Musculoskeletal: No swelling Integumentary: No rashes Neurological: Other (Sedated.) Assessment And Plan - Current Problems (Diagnosis) (1) CHF (congestive heart failure) Current Visit: Yes Status: Acute Qualifiers: Heart failure type: unspecified Heart failure chronicity: chronic Qualified Code(s): I50.9 - Heart failure, unspecified (2) Pneumonia due to COVID-19 virus Current Visit: Yes Status: Acute (3) HTN (hypertension) Current Visit: Yes Status: Chronic Qualifiers: Hypertension type: primary hypertension Qualified Code(s): I10 - Essential (primary) hypertension (4) UTI (urinary tract infection) Current Visit: Yes Status: Acute (5) Acute respiratory failure with hypoxia Current Visit: Yes Status: Acute Physician Review Additional Text: Problem List acute hypoxemic respiratory failure secondary to COVID-19 pneumonia UTI, acute cystitis chronic CHF, unknown type HTN anxiety Pneumomediastinum Subcutaneous emphysema Pneumothorax. Continue mechanical intubation. Pulmonary is following. Klebsiella UTI. Patient completed IV Rocephin. She is currently on IV cefepime for possible secondary bacterial pneumonia. Continue steroid, vitamin supplementation and zinc supplementation. Completed Remdesivir. Baricitinib therapy PICC line in. TPN started 04/13. Status post Levaquin Continue Diflucan for oral candidiasis Serial chest x-ray shows no change in apical pneumothorax and pneumomediastinum. Serial chest x-rays. Start oral amiodarone and wean off amiodarone drip. Continue metoprolol. Eliquis for anticoagulation. Full code guarded prognosis, continue ICU level of care.
--- NOTE | 2021-04-20 13:05 | P.PN ---
Subjective Date of Service: 04/20/21 Chief Complaint: Resp failure His condition is stable developed A. fib today had to increase her amiodarone patient's Nimbex drip has been decreased still on high doses of propofol Review of Systems is unable to be obtained Physical Examination - Vital Signs Temperature: 98.3 F Blood Pressure: 143/75 Pulse: 81 Respirations: 22 Pulse Ox (%): 92 - Physical Exam General: Unresponsive Assessment & Plan - Problems (Diagnosis) (1) Pneumonia due to COVID-19 virus Current Visit: Yes Status: Acute Plan: Respiratory failure on maximum support on 100% FiO2 chest x-ray still got bilateral interstitial changes patient has significant subcu emphysema vital signs otherwise stable hyperglycemia add insulin lispro white count is now normal daily arterial blood gases
[2021-04-20] MEDS: VITAL HP 1,000 ML BOT RTH SCH (14:15)
[2021-04-20 15:17] LABS: Arterial Blood Carboxyhemoglob 1.1 % (0-1.5)
[2021-04-20] MEDS: INSULIN LISPRO 100 UNIT/1 ML SQ SCH (16:41)
[2021-04-20] MEDS: FENTANYL CITR 100 MCG/2 ML IV PRN ×2 (18:41→23:56)
[2021-04-20] MEDS: AMIODARONE HCL 200 MG TAB PO SCH (20:04)
[2021-04-21] MEDS: propofoL 500 MG/50 ML ML IV PRN ×12 (01:42→23:16)
[2021-04-21] MEDS: LORazepam 2 MG/ML VIAL IV PRN ×5 (01:42→23:05)
[2021-04-21] MEDS: INSULIN -REGULAR HUMAN 50 UNIT/0.5 ML ML SQ SCH ×4 (05:08→23:40)
[2021-04-21 05:45] LABS: Absolute Lymphocytes (CBC) 0.5 K/uL (0.7-4.9); Basophils % 0.3 % (0-1.3); Hematocrit 38.3 % (36.0-45.0); Lymphocytes % 6.9 % (15.3-44.8); MPV 9.5 fL (7.6-11.3); RBC Red Blood Cell Count 4.37 M/uL (3.86-4.86)
[2021-04-21 06:01] LABS: ALT/SGPT 99 U/L (12-78); AST/SGOT 21 U/L (15-37); Albumin 2.1 g/dL (3.4-5.0); Alkaline Phosphatase 97 U/L (45-117); BUN Blood Urea Nitrogen 36 mg/dL (7-18); Bicarbonate 38 mmol/L (21-32); Bilirubin Total 0.5 mg/dL (0.2-1.0); Ferritin 1136.4 ng/mL (8-388); Glucose Level 315 mg/dL (74-106); Potassium 4.4 mmol/L (3.5-5.1); Protein, Total 5.7 g/dL (6.4-8.2); Sodium Level 140 mmol/L (136-145)
[2021-04-21 06:38] LABS: Arterial Blood Carboxyhemoglob 1.2 % (0-1.5); Blood Gas Oxyhemoglobin 85.8 % (94-97); Blood O2 Saturation 87.7 % (92-98.5)
--- NOTE | 2021-04-21 08:12 | P.PN ---
Subjective Date of Service: 04/20/21 Chief Complaint: Resp failure Subjective: No new changes Physical Examination - Vital Signs Temperature: 97.1 F Blood Pressure: 154/93 Pulse: 127 Respirations: 26 Pulse Ox (%): 86 - Physical Exam General: Other (Remains intubated on ventilator) Respiratory: Diminished Assessment And Plan - Current Problems (Diagnosis) (1) Pneumonia due to COVID-19 virus Current Visit: Yes Status: Acute Plan: - chest x ray appears to be unchanged with atelectasis, inflammatory changes, opacification, no visible pneumothorax, - continue daily chest x-rays - continue medical management Physician Review Additional Text: Problem List acute hypoxemic respiratory failure secondary to COVID-19 pneumonia UTI, acute cystitis chronic CHF, unknown type HTN anxiety Pneumomediastinum Subcutaneous emphysema Pneumothorax. Continue mechanical intubation. Pulmonary is following. Klebsiella UTI. Patient completed IV Rocephin. She is currently on IV cefepime for possible secondary bacterial pneumonia. Continue steroid, vitamin supplementation and zinc supplementation. Completed Remdesivir. Baricitinib therapy PICC line in. TPN started 04/13. Status post Levaquin Continue Diflucan for oral candidiasis Serial chest x-ray shows no change in apical pneumothorax and pneumomediastinum. Serial chest x-rays. Start oral amiodarone and wean off amiodarone drip. Continue metoprolol. Eliquis for anticoagulation. Full code guarded prognosis, continue ICU level of care.
--- NOTE | 2021-04-21 08:13 | P.PN ---
Subjective Date of Service: 04/21/21 Chief Complaint: Resp failure Subjective: No new changes Physical Examination - Vital Signs Temperature: 97.1 F Blood Pressure: 154/93 Pulse: 127 Respirations: 26 Pulse Ox (%): 86 - Physical Exam General: Other (intubated, ventilated) Respiratory: Diminished Assessment And Plan - Current Problems (Diagnosis) (1) Pneumonia due to COVID-19 virus Current Visit: Yes Status: Acute Plan: - chest x ray appears to be unchanged with atelectasis, inflammatory changes, opacification, no visible pneumothorax, - continue daily chest x-rays - continue medical management - will sign off for now, please call back with any future needs Physician Review Additional Text: Problem List acute hypoxemic respiratory failure secondary to COVID-19 pneumonia UTI, acute cystitis chronic CHF, unknown type HTN anxiety Pneumomediastinum Subcutaneous emphysema Pneumothorax. Continue mechanical intubation. Pulmonary is following. Klebsiella UTI. Patient completed IV Rocephin. She is currently on IV cefepime for possible secondary bacterial pneumonia. Continue steroid, vitamin supplementation and zinc supplementation. Completed Remdesivir. Baricitinib therapy PICC line in. TPN started 04/13. Status post Levaquin Continue Diflucan for oral candidiasis Serial chest x-ray shows no change in apical pneumothorax and pneumomediastinum. Serial chest x-rays. Start oral amiodarone and wean off amiodarone drip. Continue metoprolol. Eliquis for anticoagulation. Full code guarded prognosis, continue ICU level of care.
[2021-04-21] MEDS: DOCUSATE NA 100 MG CAP PO SCH ×2 (08:28→20:02)
[2021-04-21] MEDS: AMIODARONE HCL 200 MG TAB PO SCH (08:28)
[2021-04-21] MEDS: INSULIN LISPRO 100 UNIT/1 ML SQ SCH ×3 (08:28→17:32)
[2021-04-21] MEDS: INSULIN GLARGINE 100 UNITS/ML SQ SCH (08:29)
[2021-04-21] MEDS: FUROSEMIDE 20 MG/ 2ML VIAL IV SCH (08:29)
[2021-04-21] MEDS: APIXABAN 5 MG TABLET PO SCH ×2 (08:29→20:02)
[2021-04-21] MEDS: FLUCONAZOLE 100 MG TAB PO SCH (08:29)
[2021-04-21] MEDS: METOPROLOL TAR 50 MG TAB PO SCH ×2 (08:30→20:02)
[2021-04-21] MEDS: FAMOTIDINE 20 MG/2 ML VIAL IV SCH ×2 (08:30→20:07)
[2021-04-21] MEDS: METHYLPREDNISOLONE 125 MG INJ IV SCH ×2 (08:30→20:07)
[2021-04-21] MEDS: THIAMINE HCL 100 MG TABLET PO SCH (08:30)
[2021-04-21] MEDS: NA CHLORIDE 0.9% IV PRN (08:39)
[2021-04-21] MEDS: CEFEPIME 1 GM/100 ML BAG IV SCH ×2 (08:39→20:06)
[2021-04-21] MEDS: CISATRACURIUM BESYLATE IV PRN (08:39)
[2021-04-21] MEDS: VITAL HP 1,000 ML BOT RTH SCH (11:46)
--- NOTE | 2021-04-21 12:10 | RAD REPORT ---
EXAM DESCRIPTION: RAD - Chest Single View - 04/21/2021 6:42 am CLINICAL HISTORY: Follow up pneumonia and pneumomediastinum Chest pain. COMPARISON: Chest Single View dated 04/20/2021; Chest Single View dated 04/19/2021; Chest Single View dated 04/18/2021; Chest Single View dated 04/18/2021 FINDINGS: Portable technique limits examination quality. Tip of the endotracheal tube is at the level of the superior aortic arch. Enteric tube descends into the stomach. Right-sided PICC line is stable in position. Extensive bilateral pulmonary opacities hav e mildly improved since yesterday's study. The heart is mildly prominent in size.Subcutaneous emphyse ma bilaterally has mildly improved. IMPRESSION: Mild improvement in lung aeration is seen since yesterday's study. Mild decrease in the amount of subcutaneous emphysema also noted.
--- NOTE | 2021-04-21 12:16 | P.PN ---
Subjective Date of Service: 04/21/21 Chief Complaint: Resp failure Patient has remained in AFib but rate better controlled. Amiodarone drip discontinued and patient started on oral amiodarone. Oxygen saturation remain in the mid 80s. Physical Examination - Vital Signs Temperature: 97.1 F Blood Pressure: 154/93 Pulse: 127 Respirations: 26 Pulse Ox (%): 86 - Physical Exam General: Other (Sedated) HEENT: Other (ET and NGT) Respiratory: Other (Bilateral upper airway transmitted sounds) Cardiovascular: Normal S1 S2, Irregular heart rate/rhythm Gastrointestinal: Soft and benign, Non-distended Musculoskeletal: No swelling Integumentary: No rashes Neurological: Other (Sedated) Assessment And Plan - Current Problems (Diagnosis) (1) CHF (congestive heart failure) Current Visit: Yes Status: Acute Qualifiers: Heart failure type: unspecified Heart failure chronicity: chronic Qualified Code(s): I50.9 - Heart failure, unspecified (2) Pneumonia due to COVID-19 virus Current Visit: Yes Status: Acute (3) HTN (hypertension) Current Visit: Yes Status: Chronic Qualifiers: Hypertension type: primary hypertension Qualified Code(s): I10 - Essential (primary) hypertension (4) UTI (urinary tract infection) Current Visit: Yes Status: Acute (5) Acute respiratory failure with hypoxia Current Visit: Yes Status: Acute Physician Review Additional Text: Problem List acute hypoxemic respiratory failure secondary to COVID-19 pneumonia UTI, acute cystitis chronic CHF, unknown type HTN anxiety Pneumomediastinum Subcutaneous emphysema Pneumothorax. Continue mechanical intubation. Pulmonary is following. Klebsiella UTI. Patient completed IV Rocephin. Continue IV cefepime for possible secondary bacterial pneumonia. Continue steroid, vitamin supplementation and zinc supplementation. Completed Remdesivir. Completed Baricitinib therapy PICC line in. S/p TPN. NGT and tube feeding. Status post Levaquin Continue Diflucan for oral candidiasis Serial chest x-ray shows no change in apical pneumothorax and pneumomediastinum. Continue serial chest x-rays. Started oral amiodarone. Continue metoprolol. Amiodarone drip weaned off. Eliquis for anticoagulation. Full code guarded prognosis, continue ICU level of care.
[2021-04-21 16:28] LABS: Arterial Blood Carboxyhemoglob 1.2 % (0-1.5); Blood Gas Oxyhemoglobin 87.1 % (94-97); Blood O2 Saturation 89.1 % (92-98.5)
[2021-04-21] MEDS: AMIODARONE HCL 900 MG in Dextrose 5%-Water 482 ML IV SCH (20:00)
[2021-04-22] MEDS: propofoL 500 MG/50 ML ML IV PRN ×6 (01:30→11:22)
[2021-04-22 05:01] LABS: Absolute Lymphocytes (CBC) 0.6 K/uL (0.7-4.9); Basophils % 0.5 % (0-1.3); Hematocrit 37.6 % (36.0-45.0); Lymphocytes % 7.6 % (15.3-44.8); MPV 9.5 fL (7.6-11.3); RBC Red Blood Cell Count 4.29 M/uL (3.86-4.86)
[2021-04-22 05:27] LABS: ALT/SGPT 74 U/L (12-78); AST/SGOT 23 U/L (15-37); Albumin 2.2 g/dL (3.4-5.0); Alkaline Phosphatase 84 U/L (45-117); BUN Blood Urea Nitrogen 38 mg/dL (7-18); Bicarbonate 40 mmol/L (21-32); Bilirubin Total 0.5 mg/dL (0.2-1.0); Ferritin 994.4 ng/mL (8-388); Glucose Level 338 mg/dL (74-106); Magnesium 2.4 mg/dL (1.8-2.4); Phosphorus 4.1 mg/dL (2.5-4.9); Potassium 4.9 mmol/L (3.5-5.1); Protein, Total 5.6 g/dL (6.4-8.2); Sodium Level 140 mmol/L (136-145)
[2021-04-22] MEDS: INSULIN -REGULAR HUMAN 50 UNIT/0.5 ML ML SQ SCH ×4 (05:38→23:36)
[2021-04-22 05:48] LABS: Arterial Blood Carboxyhemoglob 1.3 % (0-1.5); Blood Gas Oxyhemoglobin 88.3 % (94-97); Blood O2 Saturation 90.7 % (92-98.5)
[2021-04-22] MEDS: INSULIN LISPRO 100 UNIT/1 ML SQ SCH ×3 (07:13→16:33)
[2021-04-22] MEDS: THIAMINE HCL 100 MG TABLET PO SCH (07:14)
[2021-04-22] MEDS: APIXABAN 5 MG TABLET PO SCH ×2 (07:14→20:02)
[2021-04-22] MEDS: FUROSEMIDE 20 MG/ 2ML VIAL IV SCH (07:14)
[2021-04-22] MEDS: METOPROLOL TAR 50 MG TAB PO SCH ×2 (07:14→20:02)
[2021-04-22] MEDS: FAMOTIDINE 20 MG/2 ML VIAL IV SCH ×2 (07:14→20:02)
[2021-04-22] MEDS: FLUCONAZOLE 100 MG TAB PO SCH (07:14)
[2021-04-22] MEDS: DOCUSATE NA 100 MG CAP PO SCH ×2 (07:14→20:02)
[2021-04-22] MEDS: METHYLPREDNISOLONE 125 MG INJ IV SCH ×2 (07:15→20:02)
[2021-04-22] MEDS: INSULIN GLARGINE 100 UNITS/ML SQ SCH (07:15)
[2021-04-22] MEDS: CEFEPIME 1 GM/100 ML BAG IV SCH ×2 (07:16→20:02)
[2021-04-22] MEDS: AMIODARONE HCL 900 MG in Dextrose 5%-Water 482 ML IV SCH (07:42)
[2021-04-22 07:45] LABS: Blood Morphology Comment NOT SEEN (NOT SEEN); Platelet Estimate ADEQ
--- NOTE | 2021-04-22 11:44 | P.PN ---
Subjective Date of Service: 04/22/21 Chief Complaint: Resp failure Patient had runs of V-tach last night. She was started back on amiodarone drip Oxygen saturation remain in the mid 80s. Physical Examination - Vital Signs Temperature: 97.8 F Blood Pressure: 142/83 Pulse: 100 Respirations: 30 Pulse Ox (%): 88 - Physical Exam General: Other (Sedated) HEENT: Other (ET and NGT) Respiratory: Other (Bilateral upper airway transmitted sounds) Cardiovascular: No edema, Normal S1 S2, Irregular heart rate/rhythm Gastrointestinal: Soft and benign, Non-distended, No tenderness Musculoskeletal: No swelling Integumentary: No rashes Neurological: Other (Sedated) Assessment And Plan - Current Problems (Diagnosis) (1) CHF (congestive heart failure) Current Visit: Yes Status: Acute Qualifiers: Heart failure type: unspecified Heart failure chronicity: chronic Qualified Code(s): I50.9 - Heart failure, unspecified (2) Pneumonia due to COVID-19 virus Current Visit: Yes Status: Acute (3) HTN (hypertension) Current Visit: Yes Status: Chronic Qualifiers: Hypertension type: primary hypertension Qualified Code(s): I10 - Essential (primary) hypertension (4) UTI (urinary tract infection) Current Visit: Yes Status: Acute (5) Acute respiratory failure with hypoxia Current Visit: Yes Status: Acute Physician Review Additional Text: Problem List acute hypoxemic respiratory failure secondary to COVID-19 pneumonia UTI, acute cystitis chronic CHF, unknown type HTN anxiety Pneumomediastinum Subcutaneous emphysema Pneumothorax. Continue mechanical intubation. Klebsiella UTI. Patient completed IV Rocephin. Continue IV cefepime for possible secondary bacterial pneumonia. Continue steroid, vitamin supplementation and zinc supplementation. Completed Remdesivir. Completed Baricitinib therapy PICC line in. S/p TPN. NGT and tube feeding. Status post Levaquin Continue Diflucan for oral candidiasis Serial chest x-ray shows no change in apical pneumothorax and pneumomediastinum. Repeat chest x-ray shows improvement in subcutaneous emphysema. Continue metoprolol. Eliquis for anticoagulation. Full code Poor prognosis, continue ICU level of care. Discussed DNR with the spouse. Spouse stated he has to make some inquiries about her wishes before deciding on DNR.
[2021-04-22] MEDS ORDERED: MIDAZOLAM HCL IV SCH ×2 (12:00→13:00)
[2021-04-22] MEDS ORDERED: NA CHLORIDE 0.9% IV SCH ×2 (12:00→13:00)
[2021-04-22] MEDS: NA CHLORIDE 0.9% IV PRN ×2 (12:06→12:52)
[2021-04-22] MEDS: CISATRACURIUM BESYLATE IV PRN (12:06)
[2021-04-22] MEDS: MIDAZOLAM HCL IV PRN (12:52)
[2021-04-22] MEDS ORDERED: NA CHLORIDE 0.9% IV PRN (13:00)
[2021-04-22] MEDS ORDERED: MIDAZOLAM HCL IV PRN (13:00)
[2021-04-22] MEDS: LORazepam 2 MG/ML VIAL IV PRN (22:26)
[2021-04-22] MEDS: FENTANYL CITR 100 MCG/2 ML IV PRN (22:41)
[2021-04-23] MEDS: MIDAZOLAM HCL 2 MG/2 ML INJ IV PRN ×2 (00:37→06:23)
[2021-04-23 05:15] LABS: Absolute Lymphocytes (CBC) 0.7 K/uL (0.7-4.9); Basophils % 0.6 % (0-1.3); Hematocrit 35.6 % (36.0-45.0); Lymphocytes % 8.5 % (15.3-44.8); MPV 9.6 fL (7.6-11.3); RBC Red Blood Cell Count 4.08 M/uL (3.86-4.86)
[2021-04-23] MEDS: INSULIN -REGULAR HUMAN 50 UNIT/0.5 ML ML SQ SCH ×4 (05:45→23:50)
[2021-04-23 05:48] LABS: ALT/SGPT 53 U/L (12-78); AST/SGOT 23 U/L (15-37); Albumin 2.4 g/dL (3.4-5.0); Alkaline Phosphatase 75 U/L (45-117); BUN Blood Urea Nitrogen 38 mg/dL (7-18); Bilirubin Total 0.7 mg/dL (0.2-1.0); Ferritin 969.9 ng/mL (8-388); Glucose Level 301 mg/dL (74-106); Magnesium 2.3 mg/dL (1.8-2.4); Potassium 4.8 mmol/L (3.5-5.1); Protein, Total 5.6 g/dL (6.4-8.2); Sodium Level 140 mmol/L (136-145)
[2021-04-23 05:58] LABS: Bicarbonate 41 mmol/L (21-32)
[2021-04-23] MEDS: LORazepam 2 MG/ML VIAL IV PRN ×4 (06:23→21:00)
[2021-04-23] MEDS: NA CHLORIDE 0.9% IV PRN (07:41)
[2021-04-23] MEDS: MIDAZOLAM HCL IV PRN (07:41)
[2021-04-23] MEDS: CEFEPIME 1 GM/100 ML BAG IV SCH ×2 (08:16→20:02)
[2021-04-23] MEDS: FLUCONAZOLE 100 MG TAB PO SCH (08:20)
[2021-04-23] MEDS: METOPROLOL TAR 50 MG TAB PO SCH ×2 (08:20→20:02)
[2021-04-23] MEDS: APIXABAN 5 MG TABLET PO SCH ×2 (08:20→20:01)
[2021-04-23] MEDS: FUROSEMIDE 20 MG/ 2ML VIAL IV SCH (08:24)
[2021-04-23] MEDS: INSULIN GLARGINE 100 UNITS/ML SQ SCH (08:27)
[2021-04-23] MEDS: FAMOTIDINE 20 MG/2 ML VIAL IV SCH ×2 (08:28→20:01)
[2021-04-23] MEDS: METHYLPREDNISOLONE 125 MG INJ IV SCH ×2 (08:28→20:01)
[2021-04-23] MEDS: THIAMINE HCL 100 MG TABLET PO SCH (08:29)
[2021-04-23] MEDS: INSULIN LISPRO 100 UNIT/1 ML SQ SCH ×3 (08:30→16:54)
[2021-04-23] MEDS: DOCUSATE NA 100 MG CAP PO SCH ×2 (08:31→20:02)
--- NOTE | 2021-04-23 12:09 | P.PN ---
Subjective Date of Service: 04/23/21 Chief Complaint: Resp failure Patient's condition patient's condition is stable still 100% FiO2 no change been weaned off paralytics on IV Versed drip Review of Systems is unable to be obtained Physical Examination - Vital Signs Temperature: 98 F Blood Pressure: 158/79 Pulse: 95 Respirations: 34 Pulse Ox (%): 90 - Physical Exam General: Unresponsive Respiratory: Diminished Assessment & Plan - Problems (Diagnosis) (1) Pneumonia due to COVID-19 virus Current Visit: Yes Status: Acute Plan: Respiratory failure no change in patient's care no change in patient's condition requiring high concentrations of oxygen labs reviewed bicarbonate is mildly elevated chest x-ray series have been ordered/patient currently weaned patient weaned off paralytic agents currently on a Versed drip
[2021-04-23] MEDS: FENTANYL CITR 100 MCG/2 ML IV PRN ×3 (12:56→22:07)
--- NOTE | 2021-04-23 14:18 | P.PN ---
Subjective Date of Service: 04/23/21 Chief Complaint: Resp failure Patient clinically getting worse. She is retaining CO2 on the vent. Heart rate is stable on amiodarone drip and metoprolol. Oxygen saturation remain in the mid 80s. Physical Examination - Vital Signs Temperature: 98 F Blood Pressure: 127/59 Pulse: 73 Respirations: 35 Pulse Ox (%): 90 - Physical Exam General: Other (Sedated) HEENT: Other (ETT and NGT) Respiratory: Other (Bilateral upper airway transmitted sounds.) Cardiovascular: Normal S1 S2, Irregular heart rate/rhythm Gastrointestinal: Soft and benign, Non-distended Integumentary: No rashes Neurological: Other (Sedated) Assessment And Plan - Current Problems (Diagnosis) (1) CHF (congestive heart failure) Current Visit: Yes Status: Acute Qualifiers: Heart failure type: unspecified Heart failure chronicity: chronic Qualified Code(s): I50.9 - Heart failure, unspecified (2) Pneumonia due to COVID-19 virus Current Visit: Yes Status: Acute (3) HTN (hypertension) Current Visit: Yes Status: Chronic Qualifiers: Hypertension type: primary hypertension Qualified Code(s): I10 - Essential (primary) hypertension (4) UTI (urinary tract infection) Current Visit: Yes Status: Acute (5) Acute respiratory failure with hypoxia Current Visit: Yes Status: Acute Physician Review Additional Text: Problem List acute hypoxemic respiratory failure secondary to COVID-19 pneumonia UTI, acute cystitis chronic CHF, unknown type HTN anxiety Pneumomediastinum Subcutaneous emphysema Pneumothorax. Continue mechanical intubation. Klebsiella UTI. Patient completed IV Rocephin. Continue IV cefepime for possible secondary bacterial pneumonia day 6. Continue steroid, vitamin supplementation and zinc supplementation. Completed Remdesivir. Completed Baricitinib therapy PICC line in. S/p TPN. NGT and tube feeding. Status post Levaquin Continue Diflucan for oral candidiasis Serial chest x-ray shows no change in apical pneumothorax and pneumomediastinum. Most recent chest x-ray showed improvement since of vitals emphysema. Patient is hypercapnic on the vent. She is not improving clinically. Detect issue discussed with cardiology-Dr. John. Continue amiodarone drip. Continue metoprolol. Eliquis for anticoagulation. Full code Poor prognosis, continue ICU level of care. Discussed DNR with the spouse. Spouse stated he has to make some inquiries abou t her wishes before deciding on DNR. Patient revoked her DNR status earlier during this hospitalization.
[2021-04-23] MEDS: AMIODARONE HCL 900 MG in Dextrose 5%-Water 482 ML IV SCH (15:20)
--- NOTE | 2021-04-23 20:03 | P.PN ---
Subjective Date of Service: 04/06/21 Chief Complaint: Resp failure Patient maintained on BiPAP. No major changes from yesterday. Physical Examination - Vital Signs Temperature: 97.3 F Blood Pressure: 126/73 Pulse: 103 Respirations: 36 Pulse Ox (%): 89 - Physical Exam General: Moderate distress, Other (Awake) HEENT: Other (BiPAP) Respiratory: Other (Mildly labored breathing) Cardiovascular: Normal S1 S2, Other (Tachycardia) Gastrointestinal: Soft and benign, Non-distended Musculoskeletal: No swelling Integumentary: No rashes Neurological: Other (No focal motor deficit) Assessment And Plan - Current Problems (Diagnosis) (1) CHF (congestive heart failure) Current Visit: Yes Status: Acute Qualifiers: Heart failure type: unspecified Heart failure chronicity: chronic Qualified Code(s): I50.9 - Heart failure, unspecified (2) Pneumonia due to COVID-19 virus Current Visit: Yes Status: Acute (3) HTN (hypertension) Current Visit: Yes Status: Chronic Qualifiers: Hypertension type: primary hypertension Qualified Code(s): I10 - Essential (primary) hypertension (4) UTI (urinary tract infection) Current Visit: Yes Status: Acute (5) Acute respiratory failure with hypoxia Current Visit: Yes Status: Acute - Plan Continue steroid, vitamin supplementation and zinc supplementation. Continue Remdesivir. Continue Baracitinib Monitor inflammatory markers. Urine culture growing Klebsiella. Continue IV Rocephin. Patient to complete 5 days of treatment.
[2021-04-24] MEDS: LORazepam 2 MG/ML VIAL IV PRN ×4 (01:39→15:53)
[2021-04-24 04:59] LABS: Absolute Lymphocytes (CBC) 0.4 K/uL (0.7-4.9); Basophils % 0.1 % (0-1.3); Hematocrit 33.4 % (36.0-45.0); Lymphocytes % 6.4 % (15.3-44.8); MPV 9.4 fL (7.6-11.3); RBC Red Blood Cell Count 3.82 M/uL (3.86-4.86)
[2021-04-24 05:34] LABS: ALT/SGPT 43 U/L (12-78); AST/SGOT 35 U/L (15-37); Albumin 2.4 g/dL (3.4-5.0); Alkaline Phosphatase 67 U/L (45-117); BUN Blood Urea Nitrogen 37 mg/dL (7-18); Bicarbonate 39 mmol/L (21-32); Bilirubin Total 0.7 mg/dL (0.2-1.0); Ferritin 1133.1 ng/mL (8-388); Glucose Level 285 mg/dL (74-106); Magnesium 2.2 mg/dL (1.8-2.4); Potassium 4.6 mmol/L (3.5-5.1); Protein, Total 5.5 g/dL (6.4-8.2); Sodium Level 139 mmol/L (136-145)
[2021-04-24] MEDS: INSULIN -REGULAR HUMAN 50 UNIT/0.5 ML ML SQ SCH ×4 (05:36→23:36)
--- NOTE | 2021-04-24 06:06 | P.PN ---
Date of Service: 04/24/21 Subjective: No acute events overnight Patient remains intubated/sedated Remains in normal sinus rhythm Review of Systems unable to be obtained - patient intubated Physical exam General: Intubated/sedated HEENT: Normal conjunctiva, ETT in place Cardiovascular: Sinus tachycardia (HR: [id number]), trace b/l pedal edema Pulm: on mechanical ventilation Abd: soft, non-distended MSK: No joint swelling Neuro: sedated Problem List Acute hypoxemic respiratory failure secondary to COVID-19 pneumonia UTI, acute cystitis chronic CHF, unknown type HTN anxiety Pneumomediastinum with subcutaneous emphysema Paroxysmal atrial fibrillation, new onset Intermittent vtach, unsustained Continue steroids / vitamin supplementation Completed Remdesivir. Baracitinab PICC line placed 04/13, TPN started 04/13. Patient did not tolerate Dobbhoff, now on tube feeds after intubation Pulmonary is following. Urine culture: Klebsiella. Completed 5 days IV Rocephin. On day 7 IV cefepime, for possible secondary bacterial pneumonia Patient noted to have a white patches in oropharynx, concern for oral candidiasis. Started IV Diflucan on 04/14 Patient and family initially stated DNR, after further discussion, patient decided to proceed with full code on 04/13 Follow-up chest x-ray this morning - unchanged Cardiology consulted for atrial fibrillation/nonsustained V. tach. Continue amiodarone drip today, likely transition to p.o. in next 24hrs if rhythm remains stable VTE: eliquis Code: full Dispo: poor prognosis, continue ICU level of care Time Spent Managing Pts Care (In Minutes): 35
[2021-04-24] MEDS: FLUCONAZOLE 100 MG TAB PO SCH (08:33)
[2021-04-24] MEDS: DOCUSATE NA 100 MG CAP PO SCH ×2 (08:33→20:00)
[2021-04-24] MEDS: THIAMINE HCL 100 MG TABLET PO SCH (08:33)
[2021-04-24] MEDS: METOPROLOL TAR 50 MG TAB PO SCH ×2 (08:34→20:00)
[2021-04-24] MEDS: APIXABAN 5 MG TABLET PO SCH ×2 (08:35→20:00)
[2021-04-24] MEDS: CEFEPIME 1 GM/100 ML BAG IV SCH ×2 (08:35→20:01)
[2021-04-24] MEDS: METHYLPREDNISOLONE 125 MG INJ IV SCH ×2 (08:35→20:00)
[2021-04-24] MEDS: INSULIN GLARGINE 100 UNITS/ML SQ SCH (08:35)
[2021-04-24] MEDS: FAMOTIDINE 20 MG/2 ML VIAL IV SCH ×2 (08:35→20:00)
[2021-04-24] MEDS: INSULIN LISPRO 100 UNIT/1 ML SQ SCH ×3 (08:36→18:32)
[2021-04-24] MEDS: MIDAZOLAM HCL IV PRN (09:11)
[2021-04-24] MEDS: NA CHLORIDE 0.9% IV PRN (09:11)
--- NOTE | 2021-04-24 09:39 | RAD REPORT ---
EXAM DESCRIPTION: RAD - Chest Single View - 04/24/2021 6:48 am CLINICAL HISTORY: Respiratory failure Chest pain. COMPARISON: Chest Single View dated 04/21/2021; Chest Single View dated 04/20/2021; Chest Single View dated 04/19/2021; Chest Single View dated 04/18/2021 FINDINGS: Portable technique limits examination quality. Tip of the endotracheal tube is at the superior margin of the aortic arch, unchanged. Enteric tube de scends into the stomach. Moderate bilateral pulmonary opacities are again seen, unchanged. The heart is mildly enlarged in size.Subcutaneous emphysema is again seen without significant change. IMPRESSION: Stable chest since 04/21/2021 study.
[2021-04-24 09:51] LABS: Arterial Blood Carboxyhemoglob 1.6 % (0-1.5); Blood Gas Oxyhemoglobin 86.2 % (94-97); Blood O2 Saturation 88.9 % (92-98.5)
--- NOTE | 2021-04-24 12:50 | P.PN ---
Subjective Date of Service: 04/24/21 Chief Complaint: Resp failure NC Pt weaned off nimbex on versed drip Review of Systems is unable to be obtained Physical Examination - Vital Signs Temperature: 97.6 F Blood Pressure: 132/72 Pulse: 75 Respirations: 35 Pulse Ox (%): 91 - Physical Exam General: Unresponsive Respiratory: Clear to auscultation bilaterally, Diminished Assessment & Plan - Problems (Diagnosis) (1) Pneumonia due to COVID-19 virus Current Visit: Yes Status: Acute Plan: Resp failure weaned off NimbexVS stable very hypoxic on 100% Fio2/ labs reviewed/CXRy rotated. meds reviewed
[2021-04-24] MEDS: FENTANYL CITR 100 MCG/2 ML IV PRN (16:50)
[2021-04-24] MEDS: AMIODARONE HCL 900 MG in Dextrose 5%-Water 482 ML IV SCH (21:10)
[2021-04-25] MEDS: LORazepam 2 MG/ML VIAL IV PRN ×3 (00:38→22:14)
[2021-04-25] MEDS: MIDAZOLAM HCL 2 MG/2 ML INJ IV PRN ×3 (00:38→22:14)
[2021-04-25] MEDS: FENTANYL CITR 100 MCG/2 ML IV PRN (01:05)
[2021-04-25 05:24] LABS: Hematocrit 34.3 % (36.0-45.0); MPV 9.7 fL (7.6-11.3); RBC Red Blood Cell Count 3.92 M/uL (3.86-4.86)
[2021-04-25] MEDS: INSULIN -REGULAR HUMAN 50 UNIT/0.5 ML ML SQ SCH ×3 (05:29→17:15)
[2021-04-25 05:51] LABS: BUN Blood Urea Nitrogen 36 mg/dL (7-18); Bicarbonate 37 mmol/L (21-32); Glucose Level 280 mg/dL (74-106); Magnesium 2.4 mg/dL (1.8-2.4); Phosphorus 4.6 mg/dL (2.5-4.9); Potassium 4.8 mmol/L (3.5-5.1); Sodium Level 139 mmol/L (136-145)
--- NOTE | 2021-04-25 06:12 | P.PN ---
Date of Service: 04/25/21 Subjective: no acute events overnight Nursing staff reports patient becomes very hypoxic quickly with minimal movement/repositioning SpO2 trending slightly down. vitals otherwise ok Review of Systems unable to be obtained - patient intubated Physical exam General: Intubated/sedated HEENT: Normal conjunctiva, ETT in place Cardiovascular: Sinus tachycardia (HR: [id number]), trace b/l pedal edema Pulm: on mechanical ventilation Abd: soft, non-distended MSK: No joint swelling Neuro: sedated Problem List Acute hypoxemic respiratory failure secondary to COVID-19 pneumonia UTI, acute cystitis chronic CHF, unknown type HTN anxiety Pneumomediastinum with subcutaneous emphysema Paroxysmal atrial fibrillation, new onset Intermittent vtach, unsustained Continue steroids / vitamin supplementation Completed Remdesivir. Baracitinab PICC line placed 04/13, TPN started 04/13. Patient did not tolerate Dobbhoff, now on tube feeds after intubation Pulmonary is following. Urine culture: Klebsiella. Completed 5 days IV Rocephin. On day 8 IV cefepime, for possible secondary bacterial pneumonia Patient noted to have a white patches in oropharynx, concern for oral candidiasis. Started IV Diflucan on 04/14. noted improvement prior to intubation Patient and family initially stated DNR, after further discussion, patient decided to proceed with full code on 04/13 Cardiology consulted for atrial fibrillation/nonsustained V. tach. Continue amiodarone drip today, likely transition to p.o. in next 24hrs if rhythm remains stable Patient with quick desaturations with minimal movement, poor prognosis will update family again today VTE: eliquis Code: full Dispo: poor prognosis, continue ICU level of care Time Spent Managing Pts Care (In Minutes): 35
[2021-04-25] MEDS: INSULIN LISPRO 100 UNIT/1 ML SQ SCH ×3 (07:34→17:15)
[2021-04-25] MEDS: DOCUSATE NA 100 MG CAP PO SCH ×2 (07:35→20:00)
[2021-04-25] MEDS: FLUCONAZOLE 100 MG TAB PO SCH (07:36)
[2021-04-25] MEDS: APIXABAN 5 MG TABLET PO SCH ×2 (07:37→20:00)
[2021-04-25] MEDS: METOPROLOL TAR 50 MG TAB PO SCH ×2 (07:37→21:08)
[2021-04-25] MEDS: THIAMINE HCL 100 MG TABLET PO SCH (07:37)
[2021-04-25] MEDS: INSULIN GLARGINE 100 UNITS/ML SQ SCH (07:38)
[2021-04-25] MEDS: FAMOTIDINE 20 MG/2 ML VIAL IV SCH ×2 (07:51→20:00)
[2021-04-25] MEDS: METHYLPREDNISOLONE 125 MG INJ IV SCH (07:52)
--- NOTE | 2021-04-25 08:34 | RAD REPORT ---
EXAM DESCRIPTION: RAD - Chest Single View - 04/25/2021 7:10 am CLINICAL HISTORY: Respiratory failure COMPARISON: Chest Single View dated 04/24/2021; Chest Single View dated 04/21/2021; Chest Single View dated 04/20/2021; Chest Single View dated 04/19/2021 FINDINGS: Lines: Endotracheal tube terminates less than a cm above the aortic arch. Enteric tube bel ow the diaphragm. Right subclavian approach PICC which is difficult to visualize as it traverses the thorax. Lungs: Widespread bilateral airspace disease. Pleural: No significant pleural effusions or pneumothorax. Cardiac: Cardiomegaly appear Bones: No acute fractures. Other: Subcutaneous emphysema. IMPRESSION: No significant interval change. Widespread airspace disease again noted. Support apparat us in stable positioning.
[2021-04-25] MEDS: HYDROMORPHONE HCL 2 MG/ML inj IV PRN ×3 (08:49→18:21)
[2021-04-25] MEDS: CEFEPIME 1 GM/100 ML BAG IV SCH ×2 (09:09→20:00)
[2021-04-25 10:30] LABS: Arterial Blood Carboxyhemoglob 1.5 % (0-1.5); Blood Gas Oxyhemoglobin 89.6 % (94-97); Blood O2 Saturation 91.9 % (92-98.5)
[2021-04-25] MEDS ORDERED: FUROSEMIDE 20 MG/ 2ML VIAL IV ONE (11:43)
--- NOTE | 2021-04-25 11:44 | P.PN ---
Subjective Date of Service: 04/25/21 Chief Complaint: Resp failure NC on versed drip Review of Systems is unable to be obtained Physical Examination - Vital Signs Temperature: 96.8 F Blood Pressure: 134/76 Pulse: 80 Respirations: 30 Pulse Ox (%): 86 - Physical Exam General: Unresponsive Respiratory: Clear to auscultation bilaterally (SQ emphysema), Diminished Assessment & Plan - Problems (Diagnosis) (1) Pneumonia due to COVID-19 virus Current Visit: Yes Status: Acute Plan: Resp failure NC on 100% FioSevere COVID add lasix,Reduce Versed add Dilaudid prn
[2021-04-25] MEDS: NA CHLORIDE 0.9% IV PRN (14:01)
[2021-04-25] MEDS: MIDAZOLAM HCL IV PRN (14:01)
[2021-04-25] MEDS: METHYLPREDNISOLONE 40 MG INJ IV SCH (20:00)
[2021-04-26] MEDS: INSULIN -REGULAR HUMAN 50 UNIT/0.5 ML ML SQ SCH ×5 (00:06→23:32)
[2021-04-26] MEDS: AMIODARONE HCL 900 MG in Dextrose 5%-Water 482 ML IV SCH (04:29)
[2021-04-26] MEDS: HYDROMORPHONE HCL 2 MG/ML inj IV PRN ×4 (04:51→22:00)
[2021-04-26 05:12] LABS: Hematocrit 32.9 % (36.0-45.0); MPV 10.1 fL (7.6-11.3); RBC Red Blood Cell Count 3.74 M/uL (3.86-4.86)
[2021-04-26 05:40] LABS: BUN Blood Urea Nitrogen 39 mg/dL (7-18); Bicarbonate 36 mmol/L (21-32); Glucose Level 256 mg/dL (74-106); Magnesium 2.3 mg/dL (1.8-2.4); Phosphorus 3.7 mg/dL (2.5-4.9); Potassium 4.9 mmol/L (3.5-5.1); Sodium Level 139 mmol/L (136-145)
--- NOTE | 2021-04-26 05:54 | P.PN ---
Date of Service: 04/26/21 Subjective: Nursing reports patient seem to do a little bit better overnight with not as much hypoxic episodes. Still desaturates quickly Chest x-ray this morning with small right apical pneumo, subcutaneous emphysema resolved SpO2: 90-91% this morning on 100% FiO2 Review of Systems unable to be obtained - patient intubated Physical exam General: Intubated/sedated HEENT: Normal conjunctiva, ETT in place Cardiovascular: Regular rate/rhythm, trace bilateral pedal edema Pulm: on mechanical ventilation Abd: soft, non-distended MSK: No joint swelling Integumentary: No subcutaneous emphysema palpated on upper chest/bilateral neck Neuro: sedated Problem List Acute hypoxemic respiratory failure secondary to COVID-19 pneumonia UTI, acute cystitis chronic CHF, unknown type HTN anxiety Pneumomediastinum with subcutaneous emphysema, resolved Right apical pneumothorax Paroxysmal atrial fibrillation, new onset Intermittent vtach, unsustained Continue steroids / vitamin supplementation Completed Remdesivir. Baracitinab PICC line placed 04/13, TPN started 04/13. Patient did not tolerate Dobbhoff, now on tube feeds after intubation Pulmonary is following. Urine culture: Klebsiella. Completed 5 days IV Rocephin. On day 9 IV cefepime, for possible secondary bacterial pneumonia Patient noted to have a white patches in oropharynx, concern for oral candidiasis. Started IV Diflucan on 04/14. noted improvement prior to intubation Patient and family initially stated DNR, after further discussion, patient decided to proceed with full code on 04/13 On further discussion with patient's 04/25 and 04/26, he stated patient at this point had expressed she would not want chest compressions/CPR or shocks for resuscitation. If her heart were to stop, she would not want anything to be done. Besides that, family and patient had expressed she would want everything else done. Okay with pressors, okay with procedures if indicated. Cardiology consulted for atrial fibrillation/nonsustained V. tach. Continue a miodarone drip Patient with quick desaturations with minimal movement, poor prognosis VTE: eliquis Code: full Dispo: poor prognosis, continue ICU level of care Time Spent Managing Pts Care (In Minutes): 35
[2021-04-26 06:16] LABS: Arterial Blood Carboxyhemoglob 1.8 % (0-1.5); Blood Gas Oxyhemoglobin 88.5 % (94-97); Blood O2 Saturation 91.3 % (92-98.5)
--- NOTE | 2021-04-26 07:22 | RAD REPORT ---
EXAM DESCRIPTION: RAD - Chest Single View - 04/26/2021 6:13 am CLINICAL HISTORY: Respiratory failure COMPARISON: Chest Single View dated 04/25/2021; Chest Single View dated 04/24/2021; Chest Single Vie w dated 04/21/2021; Chest Single View dated 04/20/2021 FINDINGS: Lines: Endotracheal tube has likely been retracted though the patient is rotated. Suggest advancing by 2 cm for more optimal positioning. NG tube below the diaphragm. Right subclavian approac h PICC with tip overlying the SVC. Lungs: Bilateral airspace disease which is difficult to compare given increased patient rotation. Dalia arent improvement involving the right lung may be more a function of technique. Pleural: No significant pleural effusions or pneumothorax. Cardiac: Cardiomegaly. Bones: No acute fractures. Other: IMPRESSION: 1. Small right-sided pneumothorax. 2. Endotracheal tube has likely retracted slightly. Recommend advancing by 2 cm. 3. Increased patient rotation which could obscure some of the airspace disease. Though it appears, pa rticularly involving the right side, this may be more a function of rotation. Suggest attention on fo llow-up. Electronic communication sent to Dr. Taylor by Dr. Albright at [id number] on 04/26/21
[2021-04-26] MEDS: FAMOTIDINE 20 MG/2 ML VIAL IV SCH ×2 (08:49→20:03)
[2021-04-26] MEDS: THIAMINE HCL 100 MG TABLET PO SCH (08:49)
[2021-04-26] MEDS: CEFEPIME 1 GM/100 ML BAG IV SCH ×2 (08:49→20:03)
[2021-04-26] MEDS: METOPROLOL TAR 50 MG TAB PO SCH (08:49)
[2021-04-26] MEDS: INSULIN GLARGINE 100 UNITS/ML SQ SCH (08:50)
[2021-04-26] MEDS: FLUCONAZOLE 100 MG TAB PO SCH (08:50)
[2021-04-26] MEDS: INSULIN LISPRO 100 UNIT/1 ML SQ SCH ×3 (08:50→17:00)
[2021-04-26] MEDS: METHYLPREDNISOLONE 40 MG INJ IV SCH ×2 (08:51→20:03)
[2021-04-26] MEDS: DOCUSATE NA 100 MG CAP PO SCH ×2 (08:51→20:03)
[2021-04-26] MEDS: APIXABAN 5 MG TABLET PO SCH ×2 (08:54→20:03)
[2021-04-26 10:37] LABS: Arterial Blood Carboxyhemoglob 1.7 % (0-1.5); Blood Gas Oxyhemoglobin 87.1 % (94-97); Blood O2 Saturation 89.8 % (92-98.5)
--- NOTE | 2021-04-26 11:10 | RAD REPORT ---
EXAM DESCRIPTION: RAD - Chest Single View - 04/26/2021 11:03 am CLINICAL HISTORY: f/u R apical pneumo COMPARISON: Chest Single View dated 04/26/2021; Chest Single View dated 04/25/2021; Chest Single Vie w dated 04/24/2021; Chest Single View dated 04/21/2021 IMPRESSION: Small right-sided apical pneumothorax is unchanged. Widespread bilateral airspace diseas e is similar. Endotracheal tube terminates approximately 12 millimeters above the aortic arch and cou ld be advanced by 2 cm. Cardiomegaly. Enteric tube noted.
--- NOTE | 2021-04-26 13:04 | P.PN ---
Subjective Date of Service: 04/26/21 Chief Complaint: Resp failure No change patient is unresponsive still on a Versed drip Review of Systems is unable to be obtained Physical Examination - Vital Signs Temperature: 97.1 F Blood Pressure: 101/59 Pulse: 80 Respirations: 34 Pulse Ox (%): 85 - Physical Exam General: Unresponsive Assessment & Plan - Problems (Diagnosis) (1) Pneumonia due to COVID-19 virus Current Visit: Yes Status: Acute Plan: Respiratory failure 100% FiO2 on a Versed drip unresponsive subcutaneous emphysema has resolved she has a small right apical pneumothorax no change prognosis poor no change in treatment
--- NOTE | 2021-04-26 14:03 | P.PN ---
Subjective Date of Service: 04/26/21 Chief Complaint: Resp failure Subjective: No new changes (patient has not changed oxygen requirements) Physical Examination - Vital Signs Temperature: 97.1 F Blood Pressure: 101/59 Pulse: 80 Respirations: 34 Pulse Ox (%): 85 - Physical Exam General: Other (lethargic) Respiratory: Diminished Assessment And Plan - Current Problems (Diagnosis) (1) Pneumonia due to COVID-19 virus Current Visit: Yes Status: Acute Plan: - chest x ray appears to be unchanged with atelectasis, inflammatory changes, opacification, small apical pneumothorax, - continue daily chest x-rays - continue medical management Physician Review Additional Text: Problem List acute hypoxemic respiratory failure secondary to COVID-19 pneumonia UTI, acute cystitis chronic CHF, unknown type HTN anxiety Pneumomediastinum Subcutaneous emphysema Pneumothorax. Continue mechanical intubation. Klebsiella UTI. Patient completed IV Rocephin. Continue IV cefepime for possible secondary bacterial pneumonia day 6. Continue steroid, vitamin supplementation and zinc supplementation. Completed Remdesivir. Completed Baricitinib therapy PICC line in. S/p TPN. NGT and tube feeding. Status post Levaquin Continue Diflucan for oral candidiasis Serial chest x-ray shows no change in apical pneumothorax and pneumomediastinum. Most recent chest x-ray showed improvement since of vitals emphysema. Patient is hypercapnic on the vent. She is not improving clinically. Detect issue discussed with cardiology-Dr. John. Continue amiodarone drip. Continue metoprolol. Eliquis for anticoagulation. Full code Poor prognosis, continue ICU level of care. Discussed DNR with the spouse. Spouse stated he has to make some inquiries about her wishes before deciding on DNR. Patient revoked her DNR status earlier during this hospitalization.
[2021-04-26] MEDS: METOPROLOL TAR 25 MG TAB PO SCH (20:03)
[2021-04-26] MEDS: LORazepam 2 MG/ML VIAL IV PRN (23:09)
[2021-04-27] MEDS: HYDROMORPHONE HCL 2 MG/ML inj IV PRN ×5 (02:32→22:29)
[2021-04-27 05:03] LABS: Hematocrit 31.3 % (36.0-45.0); RBC Red Blood Cell Count 3.59 M/uL (3.86-4.86)
[2021-04-27] MEDS: INSULIN -REGULAR HUMAN 50 UNIT/0.5 ML ML SQ SCH ×3 (05:36→17:02)
[2021-04-27 05:51] LABS: BUN Blood Urea Nitrogen 36 mg/dL (7-18); Bicarbonate 36 mmol/L (21-32); Glucose Level 272 mg/dL (74-106); Magnesium 2.2 mg/dL (1.8-2.4); Phosphorus 4.1 mg/dL (2.5-4.9); Potassium 5.1 mmol/L (3.5-5.1); Sodium Level 137 mmol/L (136-145)
--- NOTE | 2021-04-27 05:51 | P.PN ---
Date of Service: 04/27/21 Subjective: No acute events overnight. CXR this morning with no clear right apical pneumothorax Oxygen saturation in the high 80s, still very sensitive and hypoxic with minimal movement. Heart rate more stable Review of Systems unable to be obtained - patient intubated Physical exam General: Intubated/sedated HEENT: Normal conjunctiva, ETT in place Cardiovascular: Regular rate/rhythm, trace bilateral pedal edema Pulm: on mechanical ventilation Abd: soft, non-distended MSK: No joint swelling Integumentary: No subcutaneous emphysema palpated on upper chest/bilateral neck Neuro: sedated Problem List Acute hypoxemic respiratory failure secondary to COVID-19 pneumonia UTI, acute cystitis chronic CHF, unknown type HTN anxiety Pneumomediastinum with subcutaneous emphysema, resolved Right apical pneumothorax Paroxysmal atrial fibrillation, new onset Intermittent vtach, unsustained Continue steroids / vitamin supplementation Completed Remdesivir. Baracitinab PICC line placed 04/13, TPN started 04/13. Patient did not tolerate Dobbhoff, now on tube feeds after intubation Pulmonary is following. Urine culture: Klebsiella. Completed 5 days IV Rocephin. On day 10 IV cefepime, for possible secondary bacterial pneumonia Patient noted to have a white patches in oropharynx, concern for oral candidiasis. Started IV Diflucan on 04/14. noted improvement prior to intubation - to complete 2 week treatment Patient and family initially stated DNR, after further discussion, patient decided to proceed with full code on 04/13. On further discussion with patient's 04/25 and 04/26, he stated patient at this point had expressed she would not want chest compressions/CPR or shocks for resuscitation. If her heart were to stop, she would not want anything to be done. Besides that, family and patient had expressed she would want everything else done. Okay with pressors, okay with procedures if indicated. Cardiology consulted for atrial fibrillation/nonsustained V. tach. Continue amiodarone drip, will transition to PO Patient with quick desaturations with minimal movement, poor prognosis Right apical pneumothorax seen again on 04/26, slightly larger than previously noted. With resolved subcutaneous emphysema. Was monitored throughout the day, chest x-ray this morning with no clear pneumo continue daily cxr VTE: eliquis Code: DNR (confirmed with on 04/26) Dispo: poor prognosis, continue ICU level of care Time Spent Managing Pts Care (In Minutes): 35
[2021-04-27 05:54] LABS: Arterial Blood Carboxyhemoglob 2.1 % (0-1.5)
[2021-04-27 05:55] LABS: Blood Gas Oxyhemoglobin 86.3 % (94-97); Blood O2 Saturation 89.2 % (92-98.5)
[2021-04-27] MEDS: INSULIN GLARGINE 100 UNITS/ML SQ SCH (07:58)
[2021-04-27] MEDS: INSULIN LISPRO 100 UNIT/1 ML SQ SCH ×3 (07:58→17:03)
[2021-04-27] MEDS: METHYLPREDNISOLONE 40 MG INJ IV SCH ×2 (07:59→20:14)
[2021-04-27] MEDS: FLUCONAZOLE 100 MG TAB PO SCH (07:59)
[2021-04-27] MEDS: THIAMINE HCL 100 MG TABLET PO SCH (07:59)
[2021-04-27] MEDS: FAMOTIDINE 20 MG/2 ML VIAL IV SCH ×2 (07:59→20:14)
[2021-04-27] MEDS: APIXABAN 5 MG TABLET PO SCH ×2 (08:00→20:13)
[2021-04-27] MEDS: DOCUSATE NA 100 MG CAP PO SCH ×2 (08:00→20:13)
[2021-04-27] MEDS: METOPROLOL TAR 25 MG TAB PO SCH (08:01)
[2021-04-27] MEDS: LORazepam 2 MG/ML VIAL IV PRN ×2 (08:20→11:13)
[2021-04-27] MEDS: CEFEPIME 1 GM/100 ML BAG IV SCH ×2 (08:23→20:13)
[2021-04-27] MEDS: AMIODARONE HCL 900 MG in Dextrose 5%-Water 482 ML IV SCH (08:23)
--- NOTE | 2021-04-27 08:50 | RAD REPORT ---
EXAM DESCRIPTION: RADChest Single View04/27/2021 6:56 am CLINICAL HISTORY: Respiratory failure COMPARISON: 04/26/2021 FINDINGS: Endotracheal tube overlies the aortic arch. Nasogastric tube within the stomach. No significant change diffuse bilateral pulmonary opacities. Previously described right apical pneumothorax is not clearly visualized on this examination.
--- NOTE | 2021-04-27 09:09 | P.PN ---
Subjective Date of Service: 04/27/21 Chief Complaint: Resp failure Subjective: No new changes Physical Examination - Vital Signs Temperature: 97.5 F Blood Pressure: 168/78 Pulse: 89 Respirations: 30 Pulse Ox (%): 90 - Physical Exam General: Mild distress Respiratory: Diminished Cardiovascular: Regular rate/rhythm Assessment And Plan - Current Problems (Diagnosis) (1) Pneumonia due to COVID-19 virus Current Visit: Yes Status: Acute Plan: - chest x ray appears to be unchanged with atelectasis, inflammatory changes, opacification, small apical pneumothorax is no longer visualized - continue daily chest x-rays - continue medical management Physician Review Additional Text: Problem List acute hypoxemic respiratory failure secondary to COVID-19 pneumonia UTI, acute cystitis chronic CHF, unknown type HTN anxiety Pneumomediastinum Subcutaneous emphysema Pneumothorax. Continue mechanical intubation. Klebsiella UTI. Patient completed IV Rocephin. Continue IV cefepime for possible secondary bacterial pneumonia day 6. Continue steroid, vitamin supplementation and zinc supplementation. Completed Remdesivir. Completed Baricitinib therapy PICC line in. S/p TPN. NGT and tube feeding. Status post Levaquin Continue Diflucan for oral candidiasis Serial chest x-ray shows no change in apical pneumothorax and pneumomediastinum. Most recent chest x-ray showed improvement since of vitals emphysema. Patient is hypercapnic on the vent. She is not improving clinically. Detect issue discussed with cardiology-Dr. John. Continue amiodarone drip. Continue metoprolol. Eliquis for anticoagulation. Full code Poor prognosis, continue ICU level of care. Discussed DNR with the spouse. Spouse stated he has to make some inquiries about her wishes before deciding on DNR. Patient revoked her DNR status earlier during this hospitalization.
[2021-04-27] MEDS: MIDAZOLAM HCL 2 MG/2 ML INJ IV PRN ×2 (11:23→15:27)
--- NOTE | 2021-04-27 13:03 | P.PN ---
Subjective Date of Service: 04/27/21 Chief Complaint: Resp failure No change requiring any sedation unresponsive Review of Systems is unable to be obtained Physical Examination - Vital Signs Temperature: 97.3 F Blood Pressure: 146/63 Pulse: 88 Respirations: 23 Pulse Ox (%): 85 - Physical Exam General: Unresponsive Assessment & Plan - Problems (Diagnosis) (1) Pneumonia due to COVID-19 virus Current Visit: Yes Status: Acute Plan: Respiratory failure permissive hyper hypercapnia labs all reviewed/ CXRY Nc severe ILd collating tube feeds prognosis very poor chest x-ray still shows severe disease continue with permissive hypercapnia as tolerated trial of Lasix vent settings changed to pressure control
[2021-04-27] MEDS ORDERED: FUROSEMIDE 20 MG/ 2ML VIAL IV ONE (13:04)
[2021-04-27 15:04] LABS: Arterial Blood Carboxyhemoglob 2.4 % (0-1.5); Blood Gas Oxyhemoglobin 84.2 % (94-97); Blood O2 Saturation 87.2 % (92-98.5)
[2021-04-27 15:08] LABS: Arterial Blood Carboxyhemoglob 2.2 % (0-1.5); Blood Gas Oxyhemoglobin 84.8 % (94-97); Blood O2 Saturation 87.9 % (92-98.5)
[2021-04-27] MEDS: METOPROLOL TAR 50 MG TAB PO SCH (20:13)
[2021-04-28] MEDS: INSULIN -REGULAR HUMAN 50 UNIT/0.5 ML ML SQ SCH ×4 (00:29→17:50)
[2021-04-28] MEDS: LORazepam 2 MG/ML VIAL IV PRN ×3 (01:22→23:36)
[2021-04-28] MEDS: HYDROMORPHONE HCL 2 MG/ML inj IV PRN ×6 (02:27→23:08)
[2021-04-28] MEDS: MIDAZOLAM HCL 2 MG/2 ML INJ IV PRN (04:07)
[2021-04-28 05:35] LABS: Hematocrit 31.5 % (36.0-45.0); MPV 9.8 fL (7.6-11.3)
--- NOTE | 2021-04-28 05:48 | P.PN ---
Date of Service: 04/28/21 Subjective: More hypoxic this morning, with tachycardia and lower blood pressure. Chest x- ray with my more significant pneumothorax on right side General surgery consulted, chest tube placed Review of Systems unable to be obtained - patient intubated Physical exam General: Intubated/sedated HEENT: Normal conjunctiva, ETT in place Cardiovascular: Sinus tachycardia Pulm: on mechanical ventilation, absent breath sounds in right upper airspace Abd: soft, non-distended Integumentary: No subcutaneous emphysema palpated on upper chest/bilateral neck Neuro: sedated Problem List Acute hypoxemic respiratory failure secondary to COVID-19 pneumonia UTI, acute cystitis chronic CHF, unknown type HTN anxiety Right apical pneumothorax Pneumomediastinum with subcutaneous emphysema, resolved Paroxysmal atrial fibrillation, new onset Intermittent vtach, unsustained Continue steroids, Completed Remdesivir. Baracitinab PICC line placed 04/13, TPN started 04/13. Patient did not tolerate Dobbhoff prior to intubation, now on tube feeds after intubation Initially with urine culture: Klebsiella. Completed 5 days IV Rocephin. On day 11 IV cefepime, for possible secondary bacterial pneumonia Pulmonary is following. Patient noted to have a white patches in oropharynx, concern for oral candidiasis. Started IV Diflucan on 04/14. noted improvement prior to intubation - to complete 2 week treatment After multiple discussions, patient is now DNR. Family state no chest compressions/electric shock if patient goes into asystole. Okay with pressors and any other procedures needed Cardiology consulted for atrial fibrillation/nonsustained V. tach. Treated with amiodarone drip with improvement, will transition to p.o. on 04/28 Patient with quick desaturations with minimal movement, poor prognosis Right apical pneumo much worse today and more hypoxic. General surgery consulted, to place chest tube today VTE: eliquis Code: DNR (confirmed with on 04/26) Dispo: poor prognosis, continue ICU level of care Time Spent Managing Pts Care (In Minutes): 45
[2021-04-28 05:50] LABS: Blood Gas Oxyhemoglobin 77.1 % (94-97); Blood O2 Saturation 79.8 % (92-98.5)
[2021-04-28 05:51] LABS: Arterial Blood Carboxyhemoglob 2.3 % (0-1.5)
[2021-04-28 05:58] LABS: ALT/SGPT 117 U/L (12-78); AST/SGOT 50 U/L (15-37); Albumin 2.3 g/dL (3.4-5.0); Alkaline Phosphatase 115 U/L (45-117); BUN Blood Urea Nitrogen 36 mg/dL (7-18); Bicarbonate 37 mmol/L (21-32); Bilirubin Total 1.1 mg/dL (0.2-1.0); Ferritin 1934.9 ng/mL (8-388); Glucose Level 305 mg/dL (74-106); Potassium 5.1 mmol/L (3.5-5.1); Protein, Total 5.5 g/dL (6.4-8.2); Sodium Level 136 mmol/L (136-145)
--- NOTE | 2021-04-28 07:48 | RAD REPORT ---
EXAM DESCRIPTION: RAD - Chest Single View - 04/28/2021 6:39 am CLINICAL HISTORY: Respiratory failure COMPARISON: April 27, April 26 TECHNIQUE: AP portable chest image was obtained 04/28/2021 6:39 am . FINDINGS: Endotracheal tube is in good position top of the aortic arch 3 cm above the ratna. NG/ OG tube extends below the diaphragm, off the field of view. No change in positioning of the right-side PICC line. Right-sided pneumothorax is new or enlarged from prior imaging now 30- 40%. No chest tube is identifi ed. Trachea remains in the midline. No right-sided pleural effusion. No left-sided pneumothorax is id entified. Right lung parenchymal opacities do not appear clearly different. Significant left lung parenchymal o pacification present. Left heart border is mostly obscured. Left hemidiaphragm is partially obscured. Heart and vasculature are normal. No measurable pleural effusion and no pneumothorax. No acute bony abnormality seen. No acute aortic findings suspected. Pneumothorax findings telephoned to the ICU 7:44 a.m.. IMPRESSION: Right-sided pneumothorax 30-40%, new or enlarged from prior imaging. [id number]-right interstitial and alveolar opacification not substantially different from comp arison. New Tubes and lines are in good position, unchanged from prior imaging.
[2021-04-28] MEDS ORDERED: LIDOCAINE 1% 20 ML MDV ONE (08:24)
--- NOTE | 2021-04-28 08:35 | P.BOP ---
Preoperative diagnosis: right PTX, Respiratory failure Postoperative diagnosis: same Primary procedure: Emergent Right chest tube placement Estimated blood loss: <5cc Specimen: none Findings: R PTX Anesthesia: Local Complications: None Transferred to: ICU Condition: Critical
[2021-04-28] MEDS: METHYLPREDNISOLONE 40 MG INJ IV SCH ×2 (08:58→20:42)
[2021-04-28] MEDS: METOPROLOL TAR 50 MG TAB PO SCH ×3 (08:58→20:41)
[2021-04-28] MEDS: THIAMINE HCL 100 MG TABLET PO SCH (08:58)
[2021-04-28] MEDS: FLUCONAZOLE 100 MG TAB PO SCH (08:59)
[2021-04-28] MEDS: DOCUSATE NA 100 MG CAP PO SCH ×2 (08:59→20:41)
[2021-04-28] MEDS: FAMOTIDINE 20 MG/2 ML VIAL IV SCH ×2 (08:59→20:42)
[2021-04-28] MEDS: APIXABAN 5 MG TABLET PO SCH ×2 (08:59→20:41)
[2021-04-28] MEDS: INSULIN LISPRO 100 UNIT/1 ML SQ SCH ×3 (08:59→17:50)
[2021-04-28] MEDS: CEFEPIME 1 GM/100 ML BAG IV SCH (09:00)
[2021-04-28] MEDS: INSULIN GLARGINE 100 UNITS/ML SQ SCH (09:01)
--- NOTE | 2021-04-28 09:05 | RAD REPORT ---
EXAM DESCRIPTION: RAD - Chest Single View - 04/28/2021 8:33 am CLINICAL HISTORY: chest tube placement, pneumothorax COMPARISON: April 28 TECHNIQUE: AP portable chest image was obtained 04/28/2021 8:33 am . FINDINGS: Right-sided chest tube has been placed. Tip is in the lateral right upper lung field. Lung volumes are low. Only a trace apical pneumothorax remains. Any anterior component can be occult on p ortable imaging. Lung parenchymal opacification on the right has not changed. Left lung field appears better aerated t carpio earlier in the day. Heart and vasculature are normal. No enlarging pleural effusion. IMPRESSION: Placement of a right-sided chest tube with the tip in the lateral right upper lung field . Only trace apical pneumothorax remains from earlier imaging.
--- NOTE | 2021-04-28 09:08 | CON ---
Date of Consultation: 04/28/2021 Reason For Service: Pneumothorax. History Of Present Illness: This is the case of a 60-year-old patient, who has been here almost a mo nth with the COVID, on ventilator. Apparently, they have been watching the pneumothorax for the last several weeks, but this morning has some change with the pneumothorax about 30% to 40%. Vital signs have been affected by it, so a stat consult was obtained by Dr. Segura for chest tube placement. Allergies: NONE. Medical Problems: Hypertension, congestive heart failure, rectocele. Past Surgical History: Surgeries include cholecystectomy, hysterectomy, and rectocele surgery. Family History: Noncontributory. Social History: She does not smoke. She does not drink alcohol. Review of Systems: Unable to be obtained. Physical Examination: General: The patient is sedated and ventilated. Chest: Diminished breath sound on the right side. See my procedure note. Abdomen: Soft and depressible. Extremities: Good capillary refill. Laboratory Data: Blood work shows 8.9 WBC count, hemoglobin of 10.7 with an INR of 1.13. Chest x-ra y interpreted by Dr. Paul as right-sided pneumothorax, about 30% to 40% enlarged from previous eloisa ging. Assessment: A 60-year-old patient with enlarging pneumothorax. A chest tube was placed stat. See p rocedure note. The patient's signed a consent after explaining the benefits, alternatives, a nd risks of chest tube placement. This is an emergent chest tube. Saturation is dropping. We proce ed accordingly. See procedure note. FINA/JOANN Voice ID: [id number] Report ID: [id number]
--- NOTE | 2021-04-28 09:14 | OP ---
Date of Procedure: 04/28/2021 Surgeon: Lance Lima MD Indication: This is an emergent chest tube placement. This is the case of a 60-year-old patient, ve ntilator for COVID with a 40% pneumothorax at present. This chest tube was emergent request. Benefi ts, alternatives, and risks were fully explained previously. Procedure In Detail: The right chest was prepped and draped in usual sterile fashion. The patient w as placed in supine position. A time-out was called. The chest x-ray was reviewed. After that, a l ocal anesthesia was applied followed by an incision in the skin and we identified the area between th e fourth and fifth intercostal space. After injecting local anesthetic, we proceeded to carefully fi nd the intercostal space, just went above it, entered the pleural space, obtained a mcfadden of air, plac ed a chest tube in that area, secured in place with nonabsorbable sutures and connected to Pleur-evac . The patient tolerated the procedure well. The tape was secured in place. Connection was secured. The Pleur-evac shows no air leak. The patient tolerated the procedure well and a chest x-ray was o rdered stat. We reviewed the chest x-ray, ensured expansion of the lung. The patient tolerated the procedure well. Unfortunately, the patient's continued critical condition and deterioration of her c ondition, she is DNR and we are going to leave once again the treatment back to the primary doctor. FINA/JOANN Voice ID: [id number] Report ID: [id number]
--- NOTE | 2021-04-28 11:42 | P.PN ---
Subjective Date of Service: 04/28/21 Chief Complaint: Resp failure Patient developed worsening pneumothorax on the right side status post chest tube not doing well unresponsive hypoxic respiratory failure maximum oxygen therapy patient is unresponsive off sedation Physical Examination - Vital Signs Temperature: 97.8 F Blood Pressure: 100/59 Pulse: 106 Respirations: 25 Pulse Ox (%): 81 - Physical Exam General: Unresponsive Assessment & Plan - Problems (Diagnosis) (1) Pneumonia due to COVID-19 virus Current Visit: Yes Status: Acute Plan: Respiratory failure s/p chest tube due to right-sided pneumothorax no change in oxygenation continues to remain very hypoxic prognosis is very poor
[2021-04-28] MEDS: FUROSEMIDE 20 MG/ 2ML VIAL IV SCH (12:02)
--- NOTE | 2021-04-28 13:38 | RAD REPORT ---
EXAM DESCRIPTION: RAD - Chest Single View - 04/28/2021 1:26 pm CLINICAL HISTORY: chest tube placement evaluation COMPARISON: April 28 TECHNIQUE: AP portable chest image was obtained 04/28/2021 1:26 pm . FINDINGS: Chest tube remains in place along the lateral right chest. Positioning is not clearly diff erent from earlier examination. Tip of the chest tube is along the lateral right chest approximately fifth inner costal space. Side port of the tubing is seventh inner costal space level. Trace apical pneumothorax remains. No new or progressive lung parenchymal finding. Lower left chest is not well visualized due to rotati on. ET tube remains in good position mid aortic arch level 3 cm above the ratna. NG tube is below the di aphragm. PICC line has not changed. IMPRESSION: Chest tube remains in place in the lateral right chest as detailed. Trace pneumothorax r emains at the apex.
[2021-04-28] MEDS: AMIODARONE HCL 200 MG TAB PO SCH ×2 (13:51→20:41)
[2021-04-29 00:47] LABS: Urine Appearance CLEAR (Clear); Urine Bilirubin NEGATIVE (Negative); Urine Blood TRACE (Negative); Urine Color DK YELLOW (Yellow); Urine Glucose 3+ (Negative); Urine Protein 1+ (Negative); Urine Specific Gravity >=1.030 (1.005-1.030); Urine pH 5.5 (5.0-7.0)
[2021-04-29 00:51] LABS: Urine Microscopic Reflex ORDER UMIC
[2021-04-29 00:58] LABS: Urine Bacteria >50 /HPF (<20)
[2021-04-29 00:59] LABS: Urine Amorphous Sediment 1+ /HPF (NONE SEEN); Urine Coarse Granular Casts FEW /LPF (NONE SEEN); Urine Mucus 2+ /HPF (NONE SEEN)
[2021-04-29] MEDS: INSULIN -REGULAR HUMAN 50 UNIT/0.5 ML ML SQ SCH ×5 (01:36→23:25)
[2021-04-29] MEDS: HYDROMORPHONE HCL 2 MG/ML inj IV PRN ×5 (02:25→19:50)
[2021-04-29 05:36] LABS: Hematocrit 30.6 % (36.0-45.0); MPV 10.2 fL (7.6-11.3); RBC Red Blood Cell Count 3.45 M/uL (3.86-4.86)
[2021-04-29 05:38] LABS: Arterial Blood Carboxyhemoglob 2.3 % (0-1.5); Blood Gas Oxyhemoglobin 81.9 % (94-97); Blood O2 Saturation 84.8 % (92-98.5)
--- NOTE | 2021-04-29 05:47 | P.PN ---
Date of Service: 04/29/21 Subjective: Right-sided pneumothorax returned this morning, despite chest tube being an appropriate place. Discussed with general surgery and get evaluated with a chest tube Seem to be a blood clot in the tube, this was flushed, repeat chest x-ray much improved Patient still remains hypoxic in the 70s80s Subcutaneous emphysema is returning, worse on the right side up to patient's lower jaw Review of Systems unable to be obtained - patient intubated Physical exam General: Intubated/sedated HEENT: Normal conjunctiva, ETT in place Cardiovascular: Sinus tachycardia Pulm: on mechanical ventilation Abd: soft, non-distended Integumentary: Palpable subcutaneous emphysema upper chest/bilateral neck Neuro: sedated, unresponsive Problem List Acute hypoxemic respiratory failure secondary to COVID-19 pneumonia UTI, acute cystitis chronic CHF, unknown type HTN anxiety Right apical pneumothorax Pneumomediastinum with subcutaneous emphysema Paroxysmal atrial fibrillation, new onset Intermittent vtach, unsustained Continue steroids, Completed Remdesivir. Baracitinab PICC line placed 04/13, TPN started 04/13. Transitioned to tube feeds after intubation (patient refused/could not tolerate Dobbhoff prior ) Initially with urine culture: Klebsiella. Completed 5 days IV Rocephin. Completed 10 days of IV cefepime for possible secondary bacterial pneumonia Pulmonary is following. Patient noted to have a white patches in oropharynx, concern for oral candidiasis. Started IV Diflucan on 04/14. Completed 2-week treatment After multiple discussions, patient is now DNR. Family state no chest compressions/electric shock if patient goes into asystole. Okay with pressors and any other procedures needed Cardiology consulted for atrial fibrillation/nonsustained V. tach. Treated with amiodarone drip with improvement, transitioned to p.o. on 04/28 Patient with quick desaturations with minimal movement, poor prognosis Chest tube placed 01/26 for moderate-sized right pneumothorax. Chest tube clogged and required flushing on 04/29 VTE: eliquis Code: DNR (confirmed with on 04/26) Dispo: poor prognosis, continue ICU level of care Family updated Time Spent Managing Pts Care (In Minutes): 45
[2021-04-29 05:53] LABS: ALT/SGPT 116 U/L (12-78); AST/SGOT 46 U/L (15-37); Albumin 2.3 g/dL (3.4-5.0); Alkaline Phosphatase 110 U/L (45-117); BUN Blood Urea Nitrogen 41 mg/dL (7-18); Bicarbonate 39 mmol/L (21-32); Bilirubin Total 1.1 mg/dL (0.2-1.0); Ferritin 1969.1 ng/mL (8-388); Glucose Level 248 mg/dL (74-106); Potassium 4.7 mmol/L (3.5-5.1); Protein, Total 5.5 g/dL (6.4-8.2); Sodium Level 139 mmol/L (136-145)
[2021-04-29] MEDS: MIDAZOLAM HCL 2 MG/2 ML INJ IV PRN ×2 (06:09→17:23)
[2021-04-29] MEDS: METHYLPREDNISOLONE 40 MG INJ IV SCH ×2 (08:07→19:49)
[2021-04-29] MEDS: FAMOTIDINE 20 MG/2 ML VIAL IV SCH ×2 (08:07→19:49)
[2021-04-29] MEDS: FUROSEMIDE 20 MG/ 2ML VIAL IV SCH (08:07)
[2021-04-29] MEDS: INSULIN LISPRO 100 UNIT/1 ML SQ SCH ×3 (08:09→17:18)
[2021-04-29] MEDS: FLUCONAZOLE 100 MG TAB PO SCH (08:09)
[2021-04-29] MEDS: METOPROLOL TAR 50 MG TAB PO SCH ×2 (08:10→19:49)
[2021-04-29] MEDS: APIXABAN 5 MG TABLET PO SCH ×2 (08:11→19:48)
[2021-04-29] MEDS: THIAMINE HCL 100 MG TABLET PO SCH (08:11)
[2021-04-29] MEDS: DOCUSATE NA 100 MG CAP PO SCH ×2 (08:11→19:49)
[2021-04-29] MEDS: INSULIN GLARGINE 100 UNITS/ML SQ SCH (08:11)
[2021-04-29] MEDS: AMIODARONE HCL 200 MG TAB PO SCH ×2 (08:11→19:48)
--- NOTE | 2021-04-29 08:27 | RAD REPORT ---
EXAM DESCRIPTION: [facility] Single View04/29/2021 7:58 am CLINICAL HISTORY: Chest tube placement COMPARISON: July 30, 2020 FINDINGS: Right chest tube has its tip along the lateral upper right hemithorax. Right pneumothorax mildly enlarged. No other change IMPRESSION: Mild enlargement of a right pneumothorax. It is estimated to be approximately 35%
--- NOTE | 2021-04-29 08:30 | RAD REPORT ---
EXAM DESCRIPTION: Semaj Single View04/29/2021 6:56 am CLINICAL HISTORY: Respiratory failure COMPARISON: April 28, 2021 FINDINGS: A chest tube has its tip overlying the mid aspect of the mid to upper right hemithorax. Right pneumothorax has increased in size. Mild worsening in diffuse bilateral pulmonary opacities. Nasogastric tube, endotracheal tube and central venous lines in good position IMPRESSION: Enlargement of a right pneumothorax. It is estimated to be approximately 25-30%
--- NOTE | 2021-04-29 09:02 | RAD REPORT ---
EXAM DESCRIPTION: [place] Single View04/29/2021 8:47 am CLINICAL HISTORY: Device placement/ chest tube placement IMPRESSION: Right chest tube along the lateral right upper hemithorax. Right pneumothorax has decreased in size and is small
--- NOTE | 2021-04-29 09:35 | PN ---
Date of Progress Note: 04/29/2021 Diagnosis: COVID pneumonia with pneumothorax. Subjective: They called me this morning, Dr. Segura because he believed part of the pneumothorax is b ack. So I came to the area, repeated an x-ray once again since all the cables were right in my view. The chest tube looks to be working good. We changed the canister to make sure there were no kinks on the chest tube. Repeated the x-ray, so we can have a clear visualization of the area since we hav e a lot of cables in between. We noticed that there was a pneumothorax in that area, so I disconnect ed under sterile condition the chest tube and the clot came out and when we connected once again and the x-rays . This was done under stable condition. The chest tube was placed back into a Pleur-evac suction. FINA/JOANN Voice ID: [id number] Report ID: [id number]
[2021-04-29] MEDS: LORazepam 2 MG/ML VIAL IV PRN ×2 (11:07→23:12)
--- NOTE | 2021-04-29 11:33 | P.PN ---
Subjective Date of Service: 04/29/21 Chief Complaint: Resp failure NC hypoxic, CXRY owrsened Ct unclogged unresponsive Review of Systems is unable to be obtained Physical Examination - Vital Signs Temperature: 97.4 F Blood Pressure: 138/75 Pulse: 89 Respirations: 25 Pulse Ox (%): 82 - Physical Exam General: Unresponsive Assessment & Plan - Problems (Diagnosis) (1) Pneumonia due to COVID-19 virus Current Visit: Yes Status: Acute Plan: Respiratory failure s/p chest tube due to right-sided pneumothorax no change in oxygenation continues to remain very hypoxic prognosis is very poor, ABG very hypoxic, prognosis very poor unlikley to survive. Repeat cxry better
[2021-04-30] MEDS: HYDROMORPHONE HCL 2 MG/ML inj IV PRN ×7 (01:06→23:21)
[2021-04-30 05:24] LABS: Hematocrit 27.8 % (36.0-45.0); MPV 10.1 fL (7.6-11.3); RBC Red Blood Cell Count 3.16 M/uL (3.86-4.86)
[2021-04-30 05:43] LABS: ALT/SGPT 89 U/L (12-78); AST/SGOT 38 U/L (15-37); Albumin 2.1 g/dL (3.4-5.0); Alkaline Phosphatase 100 U/L (45-117); BUN Blood Urea Nitrogen 39 mg/dL (7-18); Bicarbonate 40 mmol/L (21-32); Bilirubin Total 1.1 mg/dL (0.2-1.0); Ferritin 1687.7 ng/mL (8-388); Glucose Level 297 mg/dL (74-106); Potassium 4.9 mmol/L (3.5-5.1); Protein, Total 5.4 g/dL (6.4-8.2); Sodium Level 138 mmol/L (136-145)
[2021-04-30] MEDS: INSULIN -REGULAR HUMAN 50 UNIT/0.5 ML ML SQ SCH ×3 (05:47→16:53)
--- NOTE | 2021-04-30 05:53 | P.PN ---
Date of Service: 04/30/21 Subjective: no acute events overnight, remains hypoxic in 70s-80s no improvement in the last several days Review of Systems unable to be obtained - patient intubated Physical exam General: Intubated/sedated Cardiovascular: Sinus tachycardia Pulm: on mechanical ventilation Abd: soft, non-distended Integumentary: Palpable subcutaneous emphysema upper chest, R neck Neuro: sedated, unresponsive Problem List Acute hypoxemic respiratory failure secondary to COVID-19 pneumonia UTI, acute cystitis chronic CHF, unknown type HTN anxiety Right apical pneumothorax Pneumomediastinum with subcutaneous emphysema Paroxysmal atrial fibrillation, new onset Intermittent vtach, unsustained Continue steroids, Completed Remdesivir. Baracitinab PICC line placed 04/13, TPN started 04/13. Transitioned to tube feeds after intubation (patient refused/could not tolerate Dobbhoff prior ) Initially with urine culture: Klebsiella. Completed 5 days IV Rocephin. Completed 10 days of IV cefepime for possible secondary bacterial pneumonia Pulmonary is following. Patient noted to have a white patches in oropharynx, concern for oral candidiasis. Started IV Diflucan on 04/14. Completed 2-week treatment After multiple discussions, patient is now DNR. Family state no chest compressions/electric shock if patient goes into asystole. Okay with pressors and any other procedures needed Cardiology consulted for atrial fibrillation/nonsustained V. tach. Treated with amiodarone drip with improvement, transitioned to p.o. on 04/28 Patient with quick desaturations with minimal movement, poor prognosis Chest tube placed 01/26 for moderate-sized right pneumothorax. Chest tube clogged and required flushing on 04/[address] elevation noted on rhythm strip, will get formal EKG. Not a candidate for any procedure if it is true ST elevation worsening, poor prognosis VTE: eliquis Code: DNR (confirmed with on 04/26) Dispo: poor prognosis, continue ICU level of care will update family again today Time Spent Managing Pts Care (In Minutes): 35
[2021-04-30 06:05] LABS: Arterial Blood Carboxyhemoglob 2.5 % (0-1.5); Blood Gas Oxyhemoglobin 80.4 % (94-97); Blood O2 Saturation 83.4 % (92-98.5)
--- NOTE | 2021-04-30 07:28 | RAD REPORT ---
EXAM DESCRIPTION: RAD - Chest Single View - 04/30/2021 5:46 am CLINICAL HISTORY: Respiratory failure COMPARISON: Chest Single View dated 04/29/2021; Chest Single View dated 04/29/2021; Chest Single Vie w dated 04/29/2021; Chest Single View dated 04/28/2021; Chest Single View dated 04/28/2021; Chest Sin gle View dated 04/28/2021; Chest Single View dated 04/27/2021; Chest Single View dated 04/26/2021 FINDINGS: Lines: Endotracheal tube at the aortic arch. Enteric tube below the diaphragm. Right-sided chest tube place. Right subclavian approach PICC with tip difficult to visualize Lungs: Widespread bilateral airspace disease without significant interval change. Pleural: Small residual right apical pneumothorax . Cardiac: Similar size and configuration Bones: No acute fractures. Other: IMPRESSION: No significant change in widespread bilateral airspace disease and small right apical pn eumothorax. Chest tube in similar positioning. Other support apparatus is stable.
[2021-04-30] MEDS: INSULIN LISPRO 100 UNIT/1 ML SQ SCH ×3 (08:17→16:52)
[2021-04-30] MEDS: INSULIN GLARGINE 100 UNITS/ML SQ SCH (08:17)
[2021-04-30] MEDS: FAMOTIDINE 20 MG/2 ML VIAL IV SCH ×2 (08:56→19:46)
[2021-04-30] MEDS: METHYLPREDNISOLONE 40 MG INJ IV SCH ×2 (08:56→19:45)
[2021-04-30] MEDS: METOPROLOL TAR 50 MG TAB PO SCH ×2 (08:57→19:46)
[2021-04-30] MEDS: FUROSEMIDE 20 MG/ 2ML VIAL IV SCH (08:57)
[2021-04-30] MEDS: APIXABAN 5 MG TABLET PO SCH ×2 (08:57→19:48)
[2021-04-30] MEDS: AMIODARONE HCL 200 MG TAB PO SCH ×2 (08:57→19:48)
[2021-04-30] MEDS: THIAMINE HCL 100 MG TABLET PO SCH (08:57)
--- NOTE | 2021-04-30 08:57 | EKG ---
Test Date: 2021-04-30 Test Time: 08:11:50 Health Analyst: JANEE MEASUREMENT RESULTS: Intervals: Rate: 114 CO: 126 QRSD: 122 QT: 370 QTc: 509 [place]: P: 65 CO: 126 QRS: -80 T: 90 INTERPRETIVE STATEMENTS: Sinus tachycardia Left anterior fascicular block Anterolateral infarct, age undetermined Abnormal ECG Compared to ECG 04/19/2021 09:53:01 Left anterior fascicular block now present Myocardial infarct finding now present Atrial fibrillation no longer present Left-axis deviation no longer present T-wave abnormality no longer present Electronically Signed On 04-30-21 08:57:10 CDT by Jose A John
[2021-04-30] MEDS: DOCUSATE NA 100 MG CAP PO SCH ×2 (08:58→19:47)
--- NOTE | 2021-04-30 11:59 | P.PN ---
Subjective Date of Service: 04/30/21 Chief Complaint: Resp failure No change very hypoxic unresponsive Review of Systems is unable to be obtained Physical Examination - Vital Signs Temperature: 97.1 F Blood Pressure: 147/63 Pulse: 95 Respirations: 32 Pulse Ox (%): 78 - Physical Exam General: Unresponsive Assessment & Plan - Problems (Diagnosis) (1) Pneumonia due to COVID-19 virus Current Visit: Yes Status: Acute Plan: Respiratory failure continues to remain very hypoxic prognosis poor no air leak observed chest x-ray shows severe Covid pneumonia endotracheal tube satisfactory blood gases severe hypoxemia no pneumothorax vital signs stable EKG shows now shows ST-T changes suspect is from hypoxemia Physician Review Additional Text: No change prognosis poor continues to remain very hypoxic unresponsive labs reviewed ABGs reviewed chest x-ray also reviewed
[2021-04-30] MEDS ORDERED: BISACODYL 10 MG RECTAL SUPP PR PRN (14:52)
[2021-04-30] MEDS: VITAL HP 1,000 ML BOT RTH SCH (17:04)
[2021-05-01] MEDS: INSULIN -REGULAR HUMAN 50 UNIT/0.5 ML ML SQ SCH ×3 (00:04→11:50)
[2021-05-01] MEDS: LORazepam 2 MG/ML VIAL IV PRN ×3 (00:22→17:20)
[2021-05-01] MEDS: HYDROMORPHONE HCL 2 MG/ML inj IV PRN ×5 (03:24→17:15)
[2021-05-01 05:13] LABS: Hematocrit 25.5 % (36.0-45.0); RBC Red Blood Cell Count 2.87 M/uL (3.86-4.86)
[2021-05-01 05:26] LABS: ALT/SGPT 69 U/L (12-78); AST/SGOT 44 U/L (15-37); Alkaline Phosphatase 91 U/L (45-117); BUN Blood Urea Nitrogen 36 mg/dL (7-18); Bicarbonate 40 mmol/L (21-32); Glucose Level 274 mg/dL (74-106); Magnesium 1.9 mg/dL (1.8-2.4); Potassium 4.8 mmol/L (3.5-5.1); Protein, Total 5.3 g/dL (6.4-8.2); Sodium Level 141 mmol/L (136-145)
[2021-05-01 05:35] VITALS: BMI 34.2
[2021-05-01 07:33] LABS: Arterial Blood Carboxyhemoglob 2.8 % (0-1.5); Blood Gas Oxyhemoglobin 81.9 % (94-97)
[2021-05-01] MEDS: FAMOTIDINE 20 MG/2 ML VIAL IV SCH (07:52)
[2021-05-01] MEDS: METOPROLOL TAR 50 MG TAB PO SCH (07:52)
[2021-05-01] MEDS: FUROSEMIDE 20 MG/ 2ML VIAL IV SCH (07:52)
[2021-05-01] MEDS: METHYLPREDNISOLONE 40 MG INJ IV SCH (07:52)
[2021-05-01] MEDS: ACETAMINOPHEN 500 MG TAB PO PRN (07:52)
[2021-05-01] MEDS: DOCUSATE NA 100 MG CAP PO SCH (07:53)
[2021-05-01] MEDS: AMIODARONE HCL 200 MG TAB PO SCH (07:53)
[2021-05-01] MEDS: INSULIN LISPRO 100 UNIT/1 ML SQ SCH ×2 (07:53→11:49)
[2021-05-01] MEDS: THIAMINE HCL 100 MG TABLET PO SCH (07:53)
[2021-05-01] MEDS: APIXABAN 5 MG TABLET PO SCH (07:53)
[2021-05-01] MEDS: INSULIN GLARGINE 100 UNITS/ML SQ SCH (07:54)
--- NOTE | 2021-05-01 12:31 | P.PN ---
Subjective Date of Service: 05/01/21 Chief Complaint: Resp failure No changes from yesterday. Patient oxygen saturation is in the mid 80s. Blood gas shows significant CO2 retention. She is unresponsive with minimal sedation. Physical Examination - Vital Signs Temperature: 97.9 F Blood Pressure: 133/62 Pulse: 102 Respirations: 26 Pulse Ox (%): 81 Assessment And Plan - Current Problems (Diagnosis) (1) CHF (congestive heart failure) Current Visit: Yes Status: Acute Qualifiers: Heart failure type: unspecified Heart failure chronicity: chronic Qualified Code(s): I50.9 - Heart failure, unspecified (2) Pneumonia due to COVID-19 virus Current Visit: Yes Status: Acute (3) HTN (hypertension) Current Visit: Yes Status: Chronic Qualifiers: Hypertension type: primary hypertension Qualified Code(s): I10 - Essential (primary) hypertension (4) UTI (urinary tract infection) Current Visit: Yes Status: Acute (5) Acute respiratory failure with hypoxia Current Visit: Yes Status: Acute - Plan Physical exam General: Intubated/sedated Cardiovascular: Sinus tachycardia Pulm: on mechanical ventilation. Right side Chest tube in place. Abd: soft, non-distended Integumentary: Palpable subcutaneous emphysema upper chest, R neck Neuro: unresponsive Problem List Acute hypoxemic respiratory failure secondary to COVID-19 pneumonia UTI, acute cystitis chronic CHF, unknown type HTN anxiety Right apical pneumothorax Pneumomediastinum with subcutaneous emphysema Paroxysmal atrial fibrillation, new onset Intermittent vtach, unsustained Oral candidiasis Continue steroids, Completed Remdesivir. Baracitinab PICC line placed 04/13, TPN started 04/13. Off TPN. On tube feeding. Urine culture: Klebsiella. Completed 5 days IV Rocephin. Completed 10 days of IV cefepime for possible secondary bacterial pneumonia Completed 2 weeks of IV Diflucan. Patient is now DNR. Per chart review, family requesting for no chest compression but okay with pressors and any other procedures needed Cardiology consulted for atrial fibrillation/nonsustained V. tach. Treated with amiodarone drip with improvement, transitioned to p.o. on 04/28 Chest tube placed 04/28 for moderate-sized right pneumothorax. Chest tube clogged and required flushing on 04/29 Poor prognosis.
--- NOTE | 2021-05-01 12:36 | P.PN ---
Subjective Date of Service: 05/01/21 Chief Complaint: Resp failure No change very hypoxic unresponsive Review of Systems is unable to be obtained Physical Examination - Vital Signs Temperature: 97.9 F Blood Pressure: 133/62 Pulse: 102 Respirations: 26 Pulse Ox (%): 81 - Physical Exam General: Unresponsive Assessment & Plan - Problems (Diagnosis) (1) Pneumonia due to COVID-19 virus Current Visit: Yes Status: Acute Plan: Respiratory failure respiratory failure no change patient continues to remain very hypoxic unresponsive vital signs stable continue with presence of continue with present supportive therapy patient unlikely to survive no significant air leak
[2021-05-01 16:05] VITALS: O2SAT 85
[2021-05-01 16:40] VITALS: TEMP 98.1
[2021-05-01 18:05] VITALS: BP 135/72
--- NOTE | 2021-05-01 19:40 | P.DS ---
Admission Date: 04/02/21 Discharge Date: 05/01/21 Disposition: Discharge Condition: Reason for Admission: Resp failure - Problems (1) CHF (congestive heart failure) Status: Acute Qualifiers: Heart failure type: unspecified Heart failure chronicity: chronic Qualified Code(s): I50.9 - Heart failure, unspecified (2) Pneumonia due to COVID-19 virus Status: Acute (3) HTN (hypertension) Status: Chronic Qualifiers: Hypertension type: primary hypertension Qualified Code(s): I10 - Essential (primary) hypertension (4) UTI (urinary tract infection) Status: Acute (5) Acute respiratory failure with hypoxia Status: Acute Brief History of Present Illness: 60 yo woman with CHF (EF 41%), HTN, HLD who presented with SOB and fever, COVID+ diagnosis. She stated family members whom she lives with tested positive for COVID. She not vaccinated. She began to experience fever, headache, malaise, cough, SOB, N/V/D, abdominal pain. CXR and CT chest done in the ED consistent with covid pneumonia, no pulmonary embolism. Initially sats of 92% on RA so plan was to discharge from the ED after receiving Regeneron. However, patient became hypoxic to 88% and required O2 via nasal cannula. She was subsequently admitted for further management. Hospital Course: Problem List Acute hypoxemic respiratory failure secondary to COVID-19 pneumonia UTI, acute cystitis chronic CHF, unknown type HTN anxiety Right apical pneumothorax Pneumomediastinum with subcutaneous emphysema Paroxysmal atrial fibrillation, new onset Intermittent vtach, unsustained Oral candidiasis Patient admitted to medical floor and treated with IV steroid, vitamin supplementation, and zinc supplementation per COVID protocol. Her oxygen requirement increased and was transitioned to high-flow oxygen and BiPAP. She completed Remdesivir and Baracitinab for the COVID pneumonia. She has Klebsiella UTI which was treated with IV Rocephin. She was also treated with aggressive antibiotics for secondary bacterial pneumonia. Possible fungal infection was also covered with IV Diflucan. Patient's respiratory condition continued to worsen, she was transferred to the ICU and subsequently intubated. She remained on the vent for several days. She developed pneumothorax and pneumomediastinum and had chest tube placed. She also developed atrial fibrillation nonsustained V-tach and treated with amiodarone. Patient did not respond to treatment and clinically deteriorated. She was made DNR by the family and subsequently withdrew care. Patient within minutes after extubation. Time of is 1731 hours. Vital Signs/Physical Exam: Temp Pulse Resp BP Pulse Ox 98.1 F 118 H 26 H 135/72 84 L 05/01/21 16:00 05/01/21 17:00 05/01/21 17:00 05/01/21 17:00 05/01/21 17:00 Laboratory Data at Discharge: WBC 6.10 K/uL (4.3-10.9) 05/01/21 04:25 Hgb 8.7 g/dL (12.0-15.0) L 05/01/21 04:25 Hct 25.5 % (36.0-45.0) L 05/01/21 04:25 Plt Count 148 K/uL (152-406) L 05/01/21 04:25 PT 13.0 SECONDS (9.5-12.5) H 04/02/21 15:56 INR 1.13 04/02/21 15:56 Sodium 141 mmol/L (136-145) 05/01/21 04:25 Potassium 4.8 mmol/L (3.5-5.1) 05/01/21 04:25 BUN 36 mg/dL (7-18) H 05/01/21 04:25 Creatinine 0.37 mg/dL (0.55-1.3) L 05/01/21 04:25 Glucose 274 mg/dL (74-106) H 05/01/21 04:25 Phosphorus 4.1 mg/dL (2.5-4.9) 04/27/21 04:25 Magnesium 1.9 mg/dL (1.8-2.4) 05/01/21 04:25 Total Bilirubin 1.0 mg/dL (0.2-1.0) 05/01/21 04:25 AST 44 U/L (15-37) H 05/01/21 04:25 ALT 69 U/L (12-78) 05/01/21 04:25 Alkaline Phosphatase 91 U/L (45-117) 05/01/21 04:25 Lipase 64 U/L (73-393) L 04/02/21 15:56 Home Medications: Metoprolol Succinate 50 mg PO DAILY 04/08/21 Simvastatin 40 mg PO BEDTIME 04/08/21 Followup: NONE,NONE [Primary Care Provider] -
== END 2021-05-01 19:00 | disposition expired | DRG 207 ==
LOC: ER 13:36 → ERHOLD 21:29 → 4TH 22:30 → 3RD-ICU 04-11 22:29
PROVIDERS: ADMIT Internal Medicine; ATTEND Internal Medicine
PROC: XW033E5 Introduction of Remdesivir Anti-infective into Peripheral Vein, Percutaneous Approach, New Technology Group 5 (ICD-10-PCS; 2021-04-03)
PROC: 5A09557 Assistance with Respiratory Ventilation, Greater than 96 Consecutive Hours, Continuous Positive Airway Pressure (ICD-10-PCS; 2021-04-12)
PROC: 0T9B70Z Drainage of Bladder with Drainage Device, Via Natural or Artificial Opening (ICD-10-PCS; 2021-04-12)
PROC: 02HV33Z Insertion of Infusion Device into Superior Vena Cava, Percutaneous Approach (ICD-10-PCS; 2021-04-13)
PROC: 5A1955Z Respiratory Ventilation, Greater than 96 Consecutive Hours (ICD-10-PCS; principal; 2021-04-18)
PROC: 0BH17EZ Insertion of Endotracheal Airway into Trachea, Via Natural or Artificial Opening (ICD-10-PCS; 2021-04-18)
PROC: 0W9930Z Drainage of Right Pleural Cavity with Drainage Device, Percutaneous Approach (ICD-10-PCS; 2021-04-28)
DX: U07.1 COVID-19 (principal); J12.82 Pneumonia due to coronavirus disease 2019; J96.01 Acute respiratory failure with hypoxia; J15.9 Unspecified bacterial pneumonia; A41.89 Other specified sepsis; E43 Unspecified severe protein-calorie malnutrition; N30.00 Acute cystitis without hematuria; B37.0 Candidal stomatitis; J93.9 Pneumothorax, unspecified; J98.11 Atelectasis; I47.2 Ventricular tachycardia; I50.32 Chronic diastolic (congestive) heart failure; I10 Essential (primary) hypertension; E78.5 Hyperlipidemia, unspecified; L90.0 Lichen sclerosus et atrophicus; B96.1 Klebsiella pneumoniae [K. pneumoniae] as the cause of diseases classified elsewhere; F41.9 Anxiety disorder, unspecified; J98.2 Interstitial emphysema; I48.0 Paroxysmal atrial fibrillation; Z66 Do not resuscitate; Z78.1 Physical restraint status; L89.151 Pressure ulcer of sacral region, stage 1; Z68.34 Body mass index [BMI] 34.0-34.9, adult
CPT/HCPCS: 36415; 36569; 71045; 71275; 74177; 80048; 80053; 80076; 81003; 81015; 82248; 82728; 82805; 82947; 83036; 83690; 83735; 83880; 84100; 84132; 84145; 84484; 85025; 85027; 85379; 85610; 86140; 87040; 87077; 87086; 87088; 87186; 93005; 93306; 94002; 94003; 94660; 94760; 96374; 96375; 99285; J0282; J0330; J0360; J0692; J0696; J1100; J1170; J1450; J1630; J1815; J1940; J2250; J2270; J2405; J2920; J2930; J3010; J7030; J7040; J7050; J7060; J7799; Q9967; U0003